=== PATIENT | male | born 1950 | race Caucasian/White ===

== ENCOUNTER 2019-03-21 14:49 | Emergency (ER) | payer MEDICAID, SELFPAY ==
[~2019-03-21] VITALS: Ht 172.7 cm; Wt 81.0 kg
[2019-03-21] MEDS ORDERED: CODE30TA PO (14:55)
[2019-03-21] MEDS ORDERED: CYCL10TA PO (14:55)
[2019-03-21 17:03] VITALS: BP 161/81
--- NOTE | 2019-03-22 09:09 | REP ---
LEFT ELBOW, FOUR VIEWS: Four views left elbow are performed. There is no acute fracture or dislocation. There is mild diffuse joint space narrowing with subchondral sclerosis and spurring. There is a small joint effusion. IMPRESSION: Mild degenerative changes. Small joint effusion. Electronically Signed by Pramod Rebolledo MD 03/22/2019 09:16 A
== END 2019-03-21 17:00 | disposition home or self-care (01) ==
LOC: M ED 14:49
DX: M19.022 Primary osteoarthritis, left elbow (principal); M25.422 Effusion, left elbow; W20.8XXA Other cause of strike by thrown, projected or falling object, initial encounter; Y92.098 Other place in other non-institutional residence as the place of occurrence of the external cause; Z79.899 Other long term (current) drug therapy; Z79.891 Long term (current) use of opiate analgesic

== ENCOUNTER → 2019-04-24 | Outpatient (CLI) | payer SELFPAY ==
[~2019-04-24] MED LIST: CODE30TA PO; CYCL10TA PO
--- NOTE | 2019-04-24 13:09 | REP ---
CT of the left wrist: Axial images are acquired helical scanning and a reformatted sagittal and coronal projections. 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 Mineralization and joint spaces are otherwise unremarkable. There is no fracture or dislocation. Electronically Signed by Pramod Lewis MD 04/24/2019 01:01 P
--- NOTE | 2019-04-26 09:53 | REP ---
MRI LEFT ELBOW: TECHNIQUE: Multiple sequences in the axial, coronal and sagittal planes. The visualized osseous structures demonstrate no bone marrow edema or occult fracture. There are mild subchondral cystic changes in the lateral humeral epicondyle with overlying mild to moderate chondromalacia. There is a small joint effusion. No definite joint body is seen. Collateral ligaments appear intact. There is ill-defined high signal in the common extensor tendon compatible with tendonitis. Biceps, triceps, brachialis and brachioradialis appear intact. Ulnar nerve is normally positioned in the cubital tunnel with no definite abnormality. No ganglion cyst is seen. IMPRESSION: Ill-defined high signal in T2-weighted images involving the common extensor tendon compatible with tendonitis. Collateral ligaments appear intact. Mild to moderate chondromalacia of the humeral condyles with mild subchondral cystic change in the lateral humeral epicondyle. Small joint effusion. Electronically Signed by Pramod Rebolledo MD 04/27/2019 11:29 P
== END ==
LOC: M RAD 10:48
PROVIDERS: ATTEND Physician Assistant Medical
DX: M25.532 Pain in left wrist (principal); M25.522 Pain in left elbow

== ENCOUNTER 2020-12-16 13:10 | Emergency (ER) | payer MEDICAID, SELFPAY ==
[~2020-12-16] VITALS: Ht 172.7 cm; Wt 63.7 kg
[~2020-12-16 13:10] MED LIST changes: +CYCL-707 PO; -CYCL10TA PO
[2020-12-16] MEDS ORDERED: ASPI81CH33 PO (13:39)
[2020-12-16] MEDS ORDERED: NS 1,000 ML IV ONE (15:00)
[2020-12-16 15:32] LABS: BASO % 0.5 % (0.0-1.0); EOS # 0.2 10^3/uL (0.0-0.5); HEMATOCRIT 35.6 % (42.0-52.0); HEMOGLOBIN 11.4 g/dl (13.5-17.5); LYMPH # 2.2 10^3/uL (1.5-5.0); LYMPH % 27.7 % (24.0-44.0); MEAN CORPUSCULAR VOLUME 93.7 fl (80.0-96.0); MONO # 0.6 10^3/uL (0.0-0.8); NEUTROPHILS # 4.9 10^3/uL (1.5-8.5); NEUTROPHILS % 61.4 % (36.0-66.0); PLATELET COUNT, AUTOMATED 278 10^3/uL (150-450); WHITE BLOOD COUNT 7.9 10^3/uL (4.0-10.0)
[2020-12-16 15:42] LABS: INR 0.94; PROTHROMBIN TIME 12.7 SECONDS (12.5-14.3)
[2020-12-16 15:43] LABS: PARTIAL THROMBOPLASTIN TIME 31.3 SECONDS (24.2-38.5)
[2020-12-16] MEDS ORDERED: ISOVUE-370 76% 100ML VIAL As Ordered ONE (15:58)
[2020-12-16 16:02] LABS: ALBUMIN 3.5 GM/DL (3.2-5.2); ALT/SGPT 15 U/L (12-78); AMYLASE 82 U/L (25-115); BILIRUBIN,DIRECT < 0.1 MG/DL (0.0-0.2); BILIRUBIN,TOTAL 0.3 MG/DL (0.2-1.0); CK-MB VALUE MASS < 1.0 NG/ML (<3.6); CPK CREATINE PHOSPHOKINASE 65 U/L (39-308); LIPASE 77 U/L (73-393); MB/CK RELATIVE INDEX 1.54 (< OR =4); TOTAL PROTEIN 7.7 GM/DL (6.4-8.2); TROPONIN I < 0.02 NG/ML (< 0.10)
--- NOTE | 2020-12-16 16:48 | REP ---
INDICATION: "tree fell on my head". COMPARISON: None. TECHNIQUE: Helical scanning is acquired. 5 mm axial images were reformatted. Coronal MPR images were generated. FINDINGS: Digital preliminary child care associate radiograph is unremarkable. Bone window settings demonstrate intact bony calvarium. Visualized paranasal sinuses are clear. No intraorbital abnormality is seen. No scalp hematoma is appreciated. On soft tissue window settings, there is minimal generalized volume loss. Small vessel atherosclerotic changes are seen in the periventricular white matter of the frontal lobes. There is no evidence of intracranial hemorrhage. Vascular calcification is seen in the distal internal carotid arteries. No traumatic abnormality is noted. IMPRESSION: Vascular calcification and minimal generalized volume loss. Small vessel changes. No acute intracranial abnormality.. <Electronically signed by Hakeem Dacosta > 12/16/20 [id number]
--- NOTE | 2020-12-16 16:50 | REP ---
INDICATION: "tree fell on my head". COMPARISON: None. TECHNIQUE: Helical scanning is acquired and overlapping 2 mm high resolution axial images were generated and reviewed at bone and soft tissue window settings. Coronal and sagittal multiplanar re-formations images are generated. FINDINGS: There is no evidence of cervical spine element fracture. No skull base fracture is seen. Cervical vertebral body heights are preserved. Alignment is normal. Facet joints are normally aligned bilaterally at each cervical level on multiplanar re-formations images. There is no evidence of intraspinal or paraspinal hematoma. No extra vertebral abnormality is seen. There are degenerative spondylosis changes at C3-4, C4-5, and C6-7 with disc space narrowing and sclerosis. There is central small disc protrusion at C5-6. There is also a broad-based central disc protrusion at C3-4. This is contributing to mild central canal stenosis at C3-4. No fracture or subluxation is seen. No perispinal or intraspinal hematoma is appreciated. There is osteoarthritic facet hypertrophy bilaterally in the mid cervical spine. IMPRESSION: Degenerative spondylosis changes. Central disc protrusions at C5-6 and C3-4. No traumatic abnormality noted.. <Electronically signed by Hakeem Dacosta > 12/16/20 [id number]
--- NOTE | 2020-12-16 16:57 | REP ---
INDICATION: epigastric pain s/p eating, 36lbs weight loss [id number]. COMPARISON: None. TECHNIQUE: Helical scanning was acquired and 4 mm axial images are re-formatted. Coronal and sagittal MPR images were generated and reviewed. The contrast enhancement dose is 100 mL of intravenous Isovue 370. FINDINGS: Preliminary digital pattern storage clerk radiograph is unremarkable. The lung bases are clear. There is no evidence of pleural effusion or upper abdominal ascites. The distal esophagus is air-filled and mildly dilated. There is nodular mural thickening at the gastroesophageal junction extending into the gastric cardia. There is adjacent periesophageal and celiac axis lymphadenopathy. The findings are suggestive of malignancy of the distal esophagus or gastroesophageal junction. Normal adrenal glands are seen. No focal liver lesion is seen. The spleen is unremarkable. The kidneys enhance symmetrically and are morphologically intact. No abnormality is noted in the pancreas or in the gallbladder. There is an infrarenal abdominal aortic aneurysm measuring 3.3 cm in greatest anteroposterior dimension. No perianeurysmal fibrosis or hemorrhage is seen. There are scattered right and left colonic diverticulosis changes most pronounced in the sigmoid colon. There is no evidence of diverticulitis. No pelvic mass or adenopathy is seen. There is moderate enlargement of the prostate gland. In addition, I cannot exclude a small enhancing nodular density in the urinary bladder on the left posteriorly 2.1 cm in diameter. No abdominal wall defect is seen. No bony destructive lesion is appreciated. IMPRESSION: 1. 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 Endoscopic and histologic correlation is recommended. 2. Infrarenal abdominal aortic aneurysm 3.3 cm in greatest diameter. 3. Moderate prosthetic enlargement. 4. Possible left posterior bladder mass. Consider cystoscopy. <Electronically signed by Hakeem Dacosta > 12/16/20 [id number]
[2020-12-16 17:27] VITALS: BP 141/68
[2020-12-21] MEDS ORDERED: IRON15CH PO (12:08)
== END 2020-12-16 17:40 | disposition home or self-care (01) ==
LOC: M ED 13:10
DX: I71.4 Abdominal aortic aneurysm, without rupture (principal); K22.9 Disease of esophagus, unspecified; Z79.82 Long term (current) use of aspirin; F17.210 Nicotine dependence, cigarettes, uncomplicated
CPT/HCPCS: 70450; 72125; 74177; 80047; 80076; 81001; 82150; 82550; 82553; 83690; 84484; 85025; 85610; 85730; 87086; 96360; 96361; 99284; Q9967

== ENCOUNTER → 2020-12-22 | Outpatient (CLI) | payer SELFPAY ==
[~2020-12-22] MED LIST changes: +ASPI81CH33 PO; +IRON15CH PO
== END ==
LOC: M LABSMTC 12:07
PROVIDERS: ATTEND Anesthesiology
DX: Z01.812 Encounter for preprocedural laboratory examination (principal); Z20.822 Contact with and (suspected) exposure to COVID-19

== ENCOUNTER → 2021-01-10 | Outpatient (CLI) | payer MEDICARE, SELFPAY ==
[~2021-01-10] MED LIST changes: +COVI30VI IM; +NAPR-849 PO; +NAPR220C14 PO; +collagen PO
--- NOTE | 2021-01-10 16:57 | RADONC.CN ---
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 He is seen today following EGD and biopsy to establish oncologic care and discuss treatment options. Diagnosis/Treatment History Oncologic History Late 2020: Developed globus sensation progressing to more insidious dysphagia to solid foods. He lost 40 lbs unintentionally. 12/16/20: Delayed presentation to ED first out of concern [place], but also due to complete dysphagia to solids with vomiting/epigastric pain and out of concern for continued weight loss. CT head negative. CT abdomen pelvis with distal esophageal mass, and malignant appearing LN along the lesser curvature of the stomach. 12/26/20: EGD with Dr. 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 The lung bases are clear. There is no evidence of pleural effusion or upper abdominal ascites. The distal esophagus is air-filled and mildly dilated. There is nodular mural thickening at the gastroesophageal junction extending into the gastric cardia. There is adjacent periesophageal and celiac axis lymphadenopathy. The findings are suggestive of malignancy of the distal esophagus or gastroesophageal junction. Normal adrenal glands are seen. No focal liver lesion is seen. The spleen is unremarkable. The kidneys enhance symmetrically and are morphologically intact. No abnormality is noted in the pancreas or in the gallbladder. There is an infrarenal abdominal aortic aneurysm measuring 3.3 cm in greatest anteroposterior dimension. No perianeurysmal fibrosis or hemorrhage is seen. There are scattered right and left colonic diverticulosis changes most pronounced in the sigmoid colon. There is no evidence of diverticulitis. No pelvic mass or adenopathy is seen. There is moderate enlargement of the prostate gland. In addition, I cannot exclude a small enhancing nodular density in the urinary bladder on the left posteriorly 2.1 cm in diameter. No abdominal wall defect is seen. No bony destructive lesion is appreciated. IMPRESSION: 1. 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 Endoscopic and histologic correlation is recommended. 2. Infrarenal abdominal aortic aneurysm 3.3 cm in greatest diameter. 3. Moderate prosthetic enlargement. 4. Possible left posterior bladder mass. Consider cystoscopy. Interval History Farooq reports he is able to take thin liquids PO. He has been using what sounds like a protein supplement and/or bone meal, in addition to other fluids. He is not eating anything solid with regularity. 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 He continues to smoke, not interested in quitting at this time. He has regular bowel movements, and he denies BRBPR or black stools. He has no dysuria or hematuria. No neck pain or back pain at this time. Has a history of disc disease. He has not routinely seen a physician at any time in his adult life. He has no insurance currently but is working on a Medicaid application. Past Medical History: AAA MRSA right knee Past Surgical History: Spine surgery Family History: Sister 1 cancer unknown type Sister 2 liver cancer Sister 3 breast cancer Social History: Current 1 PPD smoker 50+ pack year history Drinks 1 beer per day on average Allergies / Meds Allergies: Coded Allergies: No Known Allergies (Unverified , 12/21/20) Home Meds Reported Medications Naproxen (Naproxen) 250 Mg Tablet, 1 TAB PO BID for pain for 15 Days, #30 TAB 01/10/21 Aspirin (Aspirin) 81 Mg Tab.chew, 1 TAB PO DAILY for pain for 30 Days, #30 TAB 12/16/20 Discontinued Reported Medications Iron,Carbonyl (Iron Chews) 15 Mg Tab.chew, 65 MG PO DAILY 12/21/20 Review of Systems Constitutional: Reports: Weight Loss; Denies: Fever, Fatigue Eyes: Denies: Pain HEENT: Reports: Dysphagia; Denies: Head Aches, Sore Throat Skin: Denies: Rash Pulmonary: Denies: Dyspnea, Cough Cardiovascular: Denies: Chest Pain, Palpitations Gastrointestinal: Reports: Vomiting; Denies: Nausea, Abdominal Pain, Melena, Hematochezia Genitourinary: Denies: Dysuria, Frequency Hematologic: Denies: Bruising Musculoskeletal: Denies: Neck pain, Back pain, Joint pain Neurological: Denies: Weakness, Numbness Psych: Reports: Mood Normal Vital Signs Ht 68" Wt 146 lbs BMI 22 P 78 RR 18 BP 132/83 O2 97% Pain 0 Fatigue 0 General Exam: Positive: Alert, Cooperative, No Acute Distress Eye Exam: Positive: PERRLA, EOMI ENT EXAM: Positive: Atraumatic, Mucous membr. moist/pink, Tongue Midline Neck Exam: Positive: Supple; Negative: Lymphadenopathy (No cervical or supraclavicular adenopathy) Chest Exam: Positive: Clear to auscultation, Normal air movement Heart Exam: Positive: Rate Normal, Regular Rhythm Abdomen Exam: Positive: Normal bowel sounds, Soft; Negative: Tenderness, Mass (No abdominal tenderness, organomegaly or mass palpable. ) Extremity Exam: Negative: Edema Skin Exam: Positive: Nl turgor and temperature Neuro Exam: Positive: Normal Gait, Normal Speech, Cranial Nerves 3-12 NL Psych Exam: Positive: Mental status NL Diagnostic and Laboratory Diagnostic Review Radiologic images, relevant labs and pathology reports were personally reviewed and discussed with Mr. Faustin. Assessment and Plan Impression Mr. 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 He is seen today following EGD and biopsy to establish oncologic care and discuss treatment options. Stage [id number] adenocarcinoma of the GEJ Performance Status ECOG 1 Plan We had an extensive discussion with Mr. Faustin regarding the diagnosis at hand and available therapeutic options. He has experienced a significant amount of weight loss but despite this he remains very functional. He is able to take liquids PO but no solids at this time with any regularity. His situation is complicated by lack of insurance at the moment, he is working on obtaining this. Until he has insurance I have been informed that he will not be able to be scheduled for a PET-CT in our system as the outside vendor who provides PET services for the hospital will not schedule uninsured patients. 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 I have ordered a CT chest which will be of some assistance, though not make up for the PET. The PET can be performed once able. I discussed the general management of such cancers hinges on his surgical candidacy and various perioperative therapies. First I will refer him to the thoracic surgery group at [facility] for their expert opinion. In this situation where the extent of disease is somewhat unclear he may benefit from ex-lap at the time of J tube placement, which he certainly needs done. Once he has a surgery opinion, if he is felt to have a Siewart II lesion, then our standard would be for neoadjuvant chemoradiation 45 Gy in 25 fractions with weekly carbo/taxol. If he is felt to have a Siewart III lesion, then he may be more appropriately managed with perioperative chemotherapy such as MAGIC or FLOT. If he is not a surgical candidate, then definitive chemoradiation would be the treatment of choice. Farooq provided permission for me to contact the surgeons at [facility], and so I will contact them directly and send the referral along. We discussed the logistics of receiving radiation therapy in detail including the need for a 1-time planning session, if deemed appropriate initial therapy, this would occur after the eventual PET-CT is available. After discussing the risks, benefits and alternatives to radiation therapy, Mr. Faustin was amenable to pursuing a surgical opinion and neoadjuvant therapy as appropriate. All questions were answered to the patient's satisfaction. We instructed the patient that if there were any questions,concerns or changes in clinical status in the interim to contact us. I will see him back after his surgical consultation and coordinate his care appropriately from there. Recommendations Referral to thoracic surgery @ [facility] CT chest J tube Port placement PET-CT once insurance active Neoadjuvant therapy contingent upon surgical opinion Billing Statement Total time of [62] minutes was spent preparing for the visit [5], obtaining HPI [7], examining the patient [5], reviewing diagnostic tests [6], discussing management options [20], coordinating care [10], and writing this note [9]. ROSEANNE DUKE MD January 10, 2021 16:57
== END ==
LOC: M ONCR 12:45
PROVIDERS: ATTEND General Practice
DX: 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, unspecified (principal); I71.4 Abdominal aortic aneurysm, without rupture; F17.210 Nicotine dependence, cigarettes, uncomplicated

== ENCOUNTER → 2021-01-17 | Outpatient (CLI) | payer SELFPAY ==
[~2021-01-17] MED LIST changes: +ISOVUE-370 76% 100ML VIAL As Ordered ONE
--- NOTE | 2021-01-17 11:57 | REP ---
INDICATION: ESO CA COMPARISON: None. TECHNIQUE: Standard helical technique after the intravenous administration of 100 cc Isovue 370 FINDINGS: There is no mediastinal or hilar adenopathy. There are no pleural or pericardial effusions. The imaged osseous structures are within normal limits. The imaged upper abdomen is essentially unchanged from the abdominal CT of 12/16/2020. Evaluation of the lung osuna shows emphysematous changes with parenchymal bulla and pleural blebs. In the left lower lobe abutting the major fissure there is a 5 mm size nodule. Also seen in the left lower lobe there is an incidental calcified granuloma. There is biapical pleuroparenchymal scarring and cylindrical bronchiectasis. IMPRESSION: 1. There is a 5 mm size nodule in the left lower lobe as described above. According to the revised Fleischner society criteria this represents category 3 lesion for which a six-month follow-up chest CT is recommended. 2. Chronic lung field changes and other findings as described above. <Electronically signed by Mickey Coe > 01/17/21 [id number]
== END ==
LOC: M RAD 11:07
PROVIDERS: ATTEND General Practice
DX: C15.5 Malignant neoplasm of lower third of esophagus (principal); R91.1 Solitary pulmonary nodule
CPT/HCPCS: 71260; Q9967

== ENCOUNTER → 2021-02-13 | Outpatient (CLI) | payer SELFPAY ==
[~2021-02-13] MED LIST changes: -ISOVUE-370 76% 100ML VIAL As Ordered ONE; +ONDA8TAB10 PO; +PROC10TA4 PO
--- NOTE | 2021-02-14 02:13 | REP ---
INDICATION: UNSPECIFIED OPEN WOUND, RIGHT LOWER LEG, INITIAL E COMPARISON: None. TECHNIQUE: AP and lateral views of the right tibia/fibula FINDINGS: No acute fracture or dislocation. There is a somewhat ill-defined somewhat spongiform ovoid 4 cm area in the proximal tibial metaphysis which is nonspecific in appearance. No prior examinations are available for comparison. Surrounding soft tissues are unremarkable. IMPRESSION: Somewhat ill-defined 4 cm ovoid lesion in the proximal tibial metaphysis. Lesion is nonspecific and possibilities include both benign and malignant processes. Clinical correlation is recommended and consider CT or MRI for further investigation. <Electronically signed by Roel Samayoa > 02/14/21 0200
--- NOTE | 2021-02-14 03:09 | REP ---
INDICATION: UNSPECIFIED OPEN WOUND, RIGHT LOWER LEG, INITIAL E COMPARISON: None. TECHNIQUE: AP and cross-table lateral views. FINDINGS: There is a 4 cm ovoid somewhat spongiform appearing lesion in the proximal tibial metaphysis. No prior examinations are available for comparison. Moderate degenerative changes are also noted including minimal joint space narrowing and chondrocalcinosis. No acute fracture or dislocation. No definite effusion. IMPRESSION: 1. 4 cm ovoid appearing lesion in the proximal tibial metaphysis. No prior examinations are available for comparison. Malignancy/metastatic disease cannot definitively be excluded and further investigation including CT or MRI may be warranted. 2. Moderate degenerative changes. <Electronically signed by Roel Samayoa > 02/14/21 [id number]
== END ==
LOC: M RAD 13:10
PROVIDERS: ATTEND Surgery
DX: S81.801A Unspecified open wound, right lower leg, initial encounter (principal); W18.30XA Fall on same level, unspecified, initial encounter; Y92.009 Unspecified place in unspecified non-institutional (private) residence as the place of occurrence of the external cause

== ENCOUNTER → 2021-02-16 | Outpatient (REF) | payer MEDICARE, SELFPAY ==
[~2021-02-16] MED LIST changes: +ASPI81TA27 PO; +COLLPOW8 PO; +IRON65TA2 PO; +LEVO500T3; +MAGICMW PO; +NAPR-885 PO; +OXYC1SOL3 PO; +PANT40TA29 PO
== END ==
LOC: M LAB REF 15:53
PROVIDERS: ATTEND Surgery
DX: L97.912 Non-pressure chronic ulcer of unspecified part of right lower leg with fat layer exposed (principal); M86.18 Other acute osteomyelitis, other site; M86.68 Other chronic osteomyelitis, other site

== ENCOUNTER → 2021-02-23 | Outpatient (REF) | payer MEDICARE, SELFPAY | LOC: M LAB REF 11:22 | PROVIDERS: ATTEND Physician Assistant | DX: L97.912 Non-pressure chronic ulcer of unspecified part of right lower leg with fat layer exposed (principal) ==

== ENCOUNTER → 2021-02-28 | Outpatient (RCR) | payer SELFPAY ==
[~2021-02-28] MED LIST changes: -ASPI81TA27 PO; -COLLPOW8 PO; -IRON65TA2 PO; -LEVO500T3; -NAPR-885 PO; -PANT40TA29 PO
== END ==
LOC: M ONCR 02-01 13:16
PROVIDERS: ATTEND General Practice
DX: C15.5 Malignant neoplasm of lower third of esophagus (principal)

== ENCOUNTER 2021-03-28 08:01 | Outpatient (RCR) | payer SELFPAY ==
[~2021-03-28 08:01] MED LIST changes: +COLLPOW8 PO
== END 2021-03-31 ==
LOC: M ONCR 08:01
PROVIDERS: ATTEND General Practice
DX: C15.5 Malignant neoplasm of lower third of esophagus (principal)

== ENCOUNTER 2021-04-18 11:43 | Observation (INO) | payer SELFPAY ==
[~2021-04-18] VITALS: Ht 170.2 cm; Wt 57.0 kg
[2021-04-18] MEDS ORDERED: LEVO500T3 (11:53)
[2021-04-18] MEDS ORDERED: MORPHINE 4 MG/ML 1ML VIAL/SYRINGE (J2270) IV ONE (13:15)
--- NOTE | 2021-04-18 13:34 | REP ---
INDICATION: ? dislocation COMPARISON: None TECHNIQUE: Four views FINDINGS: There is tricompartmental marginal osteophytosis with medial compartmental and patellofemoral joint space narrowing. The lack of a sunrise view precludes complete evaluation of the patella. No fractures are identified. There is suprapatellar soft tissue swelling of uncertain etiology. IMPRESSION: Findings and limitations as described above. <Electronically signed by Mickey Coe > 04/18/21 [id number]
--- NOTE | 2021-04-18 13:39 | REP ---
INDICATION: ? dislocation COMPARISON: None. TECHNIQUE: AP and lateral left femur. FINDINGS: There is no evidence of acute fracture, dislocation, or intrinsic bone disease.There appears to be a moderate suprapatellar effusion. There is moderate medial knee joint space narrowing. There is mild narrowing at the hip joint. IMPRESSION: No fracture or dislocation. Degenerative changes. Suprapatellar effusion. <Electronically signed by Pramod Reboleldo > 04/18/21 [id number]
--- NOTE | 2021-04-18 13:41 | REP ---
INDICATION: ? dislocation COMPARISON: None. TECHNIQUE: AP and lateral left lower leg. FINDINGS: There is no evidence of acute fracture, dislocation, or intrinsic bone disease.There is moderate medial joint space narrowing and subchondral sclerosis of the medial knee joint, with mild spurring. There is a suprapatellar effusion. IMPRESSION: No fracture or dislocation. Degenerative changes of the knee, with a suprapatellar effusion. <Electronically signed by Pramod Rebolledo > 04/18/21 1220
[2021-04-18 14:14] LABS: BASO % 0.4 % (0.0-1.0); EOS % 0.5 % (0.0-3.0); HEMOGLOBIN 9.9 g/dl (13.5-17.5); LYMPH # 0.5 10^3/uL (1.5-5.0); LYMPH % 5.8 % (24.0-44.0); MEAN CORPUSCULAR HEMOGLOBIN 30.3 pg (27.0-33.0); MEAN CORPUSCULAR VOLUME 91.7 fl (80.0-96.0); MONO # 1.3 10^3/uL (0.0-0.8); MONO % 15.1 % (2.0-8.0); NEUTROPHILS # 6.6 10^3/uL (1.5-8.5); NEUTROPHILS % 77.6 % (36.0-66.0); PLATELET COUNT, AUTOMATED 170 10^3/uL (150-450); RED BLOOD COUNT 3.27 10^6/uL (4.30-6.10); WHITE BLOOD COUNT 8.5 10^3/uL (4.0-10.0)
[2021-04-18 14:35] LABS: ALBUMIN 2.8 GM/DL (3.2-5.2); ALT/SGPT 13 U/L (12-78); BILIRUBIN,DIRECT < 0.1 MG/DL (0.0-0.2); BILIRUBIN,TOTAL 0.3 MG/DL (0.2-1.0); BLOOD UREA NITROGEN 17 MG/DL (7-18); CALCIUM LEVEL 8.6 MG/DL (8.8-10.2); CARBON DIOXIDE LEVEL 29 MEQ/L (21-32); CHLORIDE LEVEL 104 MEQ/L (98-107); CREATININE FOR GFR 0.64 MG/DL (0.70-1.30); GLOMERULAR FILTRATION RATE > 60.0 (>49); GLUCOSE, FASTING 90 MG/DL (70-100); POTASSIUM SERUM 3.8 MEQ/L (3.5-5.1); SODIUM LEVEL 136 MEQ/L (136-145); TOTAL PROTEIN 6.6 GM/DL (6.4-8.2)
[2021-04-18 14:55] LABS: ERYTHROCYTE SEDIMENTATION RATE > 140 mm/hr (0-20)
--- NOTE | 2021-04-18 15:27 | REP ---
INDICATION: swelling COMPARISON: None. TECHNIQUE: Real time compression and duplex Doppler interrogation of the left lower extremity deep venous system is performed, including the right common femoral vein.Compression of the left peroneal and posterior tibial veins is performed. FINDINGS: The left common femoral, superficial femoral and popliteal veins are fully compressible with transducer pressure and demonstrate normal spontaneous and phasic flow, without evidence of deep venous thrombosis.The right common femoral vein demonstrates no thrombus.The visualized left peroneal and posterior tibial veins demonstrate no thrombus. A complex left popliteal cyst measures 4.7 x 1.8 x 2.3 cm. IMPRESSION: No evidence of deep venous thrombosis of the left lower extremity femoral popliteal venous system.No thrombus in the visualized left peroneal and posterior tibial veins. A complex left popliteal cyst measures 4.7 x 1.8 x 2.3 cm. <Electronically signed by Pramod Rebolledo > 04/18/21 1521
[2021-04-18] MEDS ORDERED: LIDOCAINE 2% MDV 20ML VIAL SC ONE (15:40)
[2021-04-18 16:39] LABS: CRYSTALS, BODY FLUID CA PYROPHOSPHATE (NONE SEEN); SOURCE, BODY FLUID LFT KNEE; SOURCE, BODY FLUID CRYSTALS LFT KNEE; SYNOVIAL FLUID COLOR YELLOW (COLORLESS)
[2021-04-18 17:10] LABS: SOURCE, BODY FLUID GLUCOSE LFT KNEE; SOURCE, BODY FLUID URIC ACID LFT KNEE; URIC ACID, BODY FLUID 4.7 MG/DL (NOT ESTABLISHED)
[2021-04-18] MEDS ORDERED: NAPROXEN 250 MG TAB PO ONE (19:25)
[2021-04-18] MEDS ORDERED: ASPI81TA27 PO (20:17)
[2021-04-18] MEDS ORDERED: IRON65TA2 PO (20:17)
[2021-04-18] MEDS ORDERED: MOM 30ML SUSPENSION UDC PO PRN (20:20)
[2021-04-18] MEDS ORDERED: MAALOX 30 ML SUSP *UDC PO PRN (20:20)
[2021-04-18] MEDS ORDERED: HOME MED LIST COMPLETE! XX SCH (20:20)
[2021-04-18] MEDS ORDERED: ACETAMINOPHEN TAB 650MG DOSE (2X325MG) PO PRN (20:20)
--- NOTE | 2021-04-18 20:23 | HPEPDOC ---
[facility] Medical History & Physical Date of Admission Apr 18, 2021 Date of Service: Apr 18, 2021 Primary Care Physician: SP PALUMBO PA-C Other Provider Attending Physician: CHRISSIE CHRIS MD History and Physical TIME OF SERVICE: 923pm CHIEF COMPLAINT: knee pain HISTORY OF PRESENT ILLNESS: is a 71 yr old F presented w c/o of left knee pain and swelling that begun on Friday evening after he completed a course of abx for a wound at the right lower leg. Over the next 3 days the pain and knee swelling got worse to the point that he had difficulties walking so he came to the ER for evaluation. Ivette Dodge discussed the patients case with (Ortho) who requested that Venkata perform aspiration of the synovial fluid for analysis. She reviewed the findings with who will see the patient in the morning. The patient was also given NSAIDs for the pain. 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 FAMILY HISTORY: One sister had spider cancer with metastasis, another sister had liver cancer, while a third sister hand breast cancer ALLERGIES: Please see below. HOME MEDICATIONS: Please see below. PHYSICAL EXAMINATION: Vital Signs Date Time Temp Pulse Resp B/P (MAP) Pulse Ox O2 Delivery O2 Flow Rate FiO2 04/18/21 11:44 97.6 77 18 112/69 (83) 99 Room Air GENERAL APPEARANCE: slim build /well developed /NAD HEENT: EOMI / MMM&P CARDIOVASCULAR: RRR/NMRG LUNGS: CTAB on RA ABDOMEN: contour flat MUSCULOSKELETAL: has a deep wound at the anterior part of the right lower leg / his left knee is covered in clean and dry dressings INTEGUMENT: he is not flushed or diaphoretic NEUROLOGICAL: CN 2-12 grossly intact /speech not dysarthric PSYCHIATRIC: A&O x 3 /able to understand and follow all comands LABORATORY DATA: Anion Gap 3L, Glomerular Filtration Rate > 60.0, Calcium Level 8.6L, Total Bilirubin 0.3, Direct Bilirubin < 0.1, Aspartate Amino Transf (AST/SGOT) 9, Alanine Aminotransferase (ALT/SGPT) 13, Alkaline Phosphatase 58, C-Reactive Protein, Quantitative 15.80H, Total Protein 6.6, Albumin 2.8L, Albumin/Globulin Ratio 0.7 04/18/21 13:55: Immature Granulocyte % (Auto) 0.6, Neutrophils (%) (Auto) 77.6H, Lymphocytes (%) (Auto) 5.8L, Monocytes (%) (Auto) 15.1H, Eosinophils (%) (Auto) 0.5, Basophils (%) (Auto) 0.4, Neutrophils # (Auto) 6.6, Lymphocytes # (Auto) 0.5L, Monocytes # (Auto) 1.3H, Eosinophils # (Auto) 0.0, Basophils # (Auto) 0.0, Nucleated Red Blood Cells % (auto) 0.0, Erythrocyte Sedimentation Rate > 140H 04/18/21 16:20: Body Fluid WBC (Auto) 32418J, Body Fluid RBC (Auto) 5, Body Fluid Mononuclear Cells % Auto 5.8H, Fluid Polymorphonuclear Cell % Auto 94.2H, Body Fluid Crystals CA PYROPHOSPHATEH, Body Fluid Crystal Source LFT KNEE, Body Fluid Glucose Source LFT KNEE, Body Fluid Glucose 3, Body Fluid Uric Acid 4.7, Body Fluid Uric Acid Source LFT KNEE, Synovial Fluid Source LFT KNEE, Synovial Fluid Color YELLOW, Synovial Fluid Appearance HAZY IMAGING: Xray Femur IMPRESSION: No fracture or dislocation. Degenerative changes. Suprapatellar effusion. Xray Knee IMPRESSION: Findings and limitations as described above. Xray Tib/Fib IMPRESSION: No fracture or dislocation. Degenerative changes of the knee, with a suprapatellar effusion. Vascular US IMPRESSION: No evidence of deep venous thrombosis of the left lower extremity femoral popliteal venous system.No thrombus in the visualized left peroneal and posterior tibial veins. A complex left popliteal cyst measures 4.7 x 1.8 x 2.3 cm. MICROBIOLOGY: Respiratory panel is pending / joint fluid cultures are pending ASSESSMENT: is a 71 yr old M w a hx of invasive adenocarcinoma of the GE junction, chronic RLE wound and chronic anemia who is admitted for knee pain likely due to pseudogout. PLAN: 1 Acute Left knee CPPD/ pseudogout +/- septic knee The cause of the pseudogout flair is likely idiopathic but other causes include trauma, familial chondrocalcinosis, or hypomagnesemia. Because he has anemia and low normal calcium unlikely that this is cause by hemochromatosis or hyperparathyroidism. Plan: admit to medical floor / fall precautions / f/u synovial fluid cx to r/o co-existing septic joint / f/u serum Mg / c/w NSAIDs /f/u w in the morning 2 Complex Left Popliteal cyst Plan: f/u w ortho in the morning 3 Chronic Anemia Likely due to GI malignancy Per d/w Narcisa Marsh the stool guaiac was neg Plan: f/u repeat CBC and w Hem/Onc 4 RLE wound Plan; will ask the day time team to consider consulting 5 GE junction cancer Plan: f/u w Hem/Onc as scheduled DVT px w lovenox Dispo: home after at least 2 midnights stay Home Medications Scheduled Aspirin (Aspirin EC) 81 Mg Tablet.dr 81 MG PO DAILY Ferrous Sulfate (Iron) 325 Mg Tablet, 325 MG PO 3XW NO SPECIFIC DAYS Allergies Coded Allergies: No Known Allergies (Unverified , 01/18/21) A-FIB/CHADSVASC A-FIB History Current/History of A-Fib/PAF?: No Current PO Anticoag Therapy: No CHRISSIE CHRIS MD Apr 18, 2021 20:22
[2021-04-18 21:43] LABS: RSV AMPLIFICATION NEGATIVE (NEGATIVE)
[2021-04-19 00:56] VITALS: BP 105/66
[2021-04-19] MEDS ORDERED: SLF 3 ML SYR IV PRN (02:15)
[2021-04-19 06:00] VITALS: BP 126/61
[2021-04-19 06:11] LABS: HEMATOCRIT 29.6 % (42.0-52.0); HEMOGLOBIN 9.9 g/dl (13.5-17.5); MEAN CORPUSCULAR HEMOGLOBIN 29.9 pg (27.0-33.0); MEAN CORPUSCULAR HGB CONC 33.4 g/dl (32.0-36.5); MEAN CORPUSCULAR VOLUME 89.4 fl (80.0-96.0); PLATELET COUNT, AUTOMATED 148 10^3/uL (150-450); RED BLOOD COUNT 3.31 10^6/uL (4.30-6.10)
[2021-04-19 06:32] LABS: BLOOD UREA NITROGEN 17 MG/DL (7-18); CALCIUM LEVEL 8.7 MG/DL (8.8-10.2); CARBON DIOXIDE LEVEL 30 MEQ/L (21-32); CHLORIDE LEVEL 105 MEQ/L (98-107); CREATININE FOR GFR 0.58 MG/DL (0.70-1.30); GLOMERULAR FILTRATION RATE > 60.0 (>49); GLUCOSE, FASTING 84 MG/DL (70-100); MAGNESIUM LEVEL 2.1 MG/DL (1.8-2.4); SODIUM LEVEL 137 MEQ/L (136-145)
[2021-04-19] MEDS ORDERED: ENOXAPARIN 40MG/0.4ML SYRINGE (J1650 PER 10MG) SC SCH (09:00)
[2021-04-19] MEDS ORDERED: ASPIRIN 81MG ENTERIC TABLET PO SCH (09:00)
[2021-04-19 11:00] LABS: BODY FLUID RHEUMATOID SCREEN NEGATIVE (NEGATIVE)
--- NOTE | 2021-04-19 11:43 | IPNPDOC ---
Text Note Date of Service The patient was seen on 04/19/21. NOTE SUBJECTIVE: -Feels back at baseline, now able to walk around, pain has resolved, swelling still present OBJECTIVE VITALS: see below GENERAL APPEARANCE: NAD HEENT: NCAT, EOMI, MMM CARDIOVASCULAR: RRR, no m/r/g LUNGS: CTAB ABDOMEN: Normoactive sounds, soft, NTND EXT: R lower anterior leg wound noted, without drainage, L knee with dressing that is c/d/i. No erythema or hotness to touch. NEUROLOGICAL: CN 3-12 grossly intact,speech not dysarthric PSYCHIATRIC: A&O x 3 LABORATORY DATA: Reviewed WBC 6 Hgb 9.9 Platelets 148 ESR >140 CRP 15.8 Na 137 K 4 Cr 0.58 Joint aspirate fluid analysis showed 27128 WBCs that were 94% PMNs and Ca pyrophosphate crystals IMAGING: Xray Femur IMPRESSION: No fracture or dislocation. Degenerative changes. Suprapatellar effusion. Xray Knee IMPRESSION: Findings and limitations as described above. Xray Tib/Fib IMPRESSION: No fracture or dislocation. Degenerative changes of the knee, with a suprapatellar effusion. Vascular US IMPRESSION: No evidence of deep venous thrombosis of the left lower extremity femoral popliteal venous system.No thrombus in the visualized left peroneal and posterior tibial veins. A complex left popliteal cyst measures 4.7 x 1.8 x 2.3 cm. MICROBIOLOGY: Respiratory panel is pending / joint fluid cultures are pending ASSESSMENT: is a 71 yr old M w a hx of invasive adenocarcinoma of the GE junction, chronic RLE wound and chronic anemia who is admitted for knee pain likely due to pseudogout. PLAN: 1 Acute Left knee CPPD/ pseudogout +/- septic knee -f/u synovial fluid cx unlikely to have co-existing septic joint -c/w NSAIDs, naproxen 500mg BID for 1 week. Will also give PPI -f/u w ortho 2 Complex Left Popliteal cyst -f/u w ortho 3 Chronic Anemia -Daily CBC RLE wound -Consulting 5 GE junction cancer -f/u w Hem/Onc as scheduled DVT px w lovenox Dispo: likely home after discussion with ortho VS,Fishbone, I+O VS, Fishbone, I+O Laboratory Tests 04/18/21 13:54 04/18/21 13:55 04/19/21 05:34 Vital Signs Date Time Temp Pulse Resp B/P (MAP) Pulse Ox O2 Delivery O2 Flow Rate FiO2 04/19/21 06:00 98.4 80 16 126/61 (82) 99 Room Air I&O- Last 24 Hours up to 6 AM 04/19/21 06:00 Intake Total 0 ml Output Total 675 ml Balance -675 ml RILEY MANCIA MD Apr 19, 2021 08:11
[2021-04-19] MEDS ORDERED: NAPR-885 PO (11:45)
[2021-04-19] MEDS ORDERED: PANT40TA29 PO (11:45)
--- NOTE | 2021-04-19 13:13 | DS.PDOC ---
Discharge Summary General Date of Admission Apr 18, 2021 at 20:18 Date of Discharge 04/19/2021 Attending Physician: RILEY MANCIA MD Discharge Summary PROCEDURES PERFORMED DURING STAY: L knee aspiration ADMITTING DIAGNOSES: Pseudogout of L knee DISCHARGE DIAGNOSES: Pseudogout of L knee Chronic R upper clay deep wound for which he follows with Dr. Valencia T3N2 poorly differentiated invasive adenocarcinoma of the GE junction (HER-2 was equivocal, his last session of chemo with Carboplatin/Paclitaxel & last day of radiation tx was on March 28, he has a PET scan scheduled in the near future) Chronic anemia Chronic Thoracic aneurysm COMPLICATIONS/CHIEF COMPLAINT: Pseudogout Of Knee. HISTORY OF PRESENT ILLNESS: 71 yr old man with a history of a chronic R upper clay, LE deep wound for which he follows with Dr. Valencia on Hydrofera blue packing with dressings, T3N2 poorly differentiated invasive adenocarcinoma of the GE junction (HER-2 was equivocal, his last session of chemo with Carboplatin/Paclitaxel & last day of radiation tx was on March 28, he has a PET scan scheduled in the near future), chronic anemia, PEG tube (not being used), Thoracic aneurysm, hx of knee subluxation who presented w c/o of left knee pain and swelling that begun on Friday evening after he completed a course of abx for his wound at the right lower leg. Over the next 3 days the pain and knee swelling got worse to the point that he had difficulties walking so he came to the ER for evaluation. Ivette Dodge discussed the patients case with ([facility]) who r equested that she perform aspiration of the synovial fluid for analysis and was admitted to medicine on NSAIDs for the pain. HOSPITAL COURSE: Fluid analysis was c/w pseudogout with calcium pyrophosphate with [place] [address]121 WBCs that were 94% PMNs. He was given naproxen 500mg and he felt much better this morning and is walking around his room and asking when he will be discharged. I will place him on 500mg BID naproxen for 7d, with a daily PPI and recommend PCP follow up within 7d. In the meantime, his R anterior clay wound looks great, has hydrafero blue packing tube in place with mild serosanguinous drainage around the dressing and he has a Dr. Valencia appt at 4PM today that he is planning to go to. DISCHARGE MEDICATIONS: Please see below. ALLERGIES: Please see below. PHYSICAL EXAMINATION ON DISCHARGE: VITAL SIGNS: Please see below. GENERAL APPEARANCE: NAD HEENT: NCAT, EOMI, MMM CARDIOVASCULAR: RRR, no m/r/g LUNGS: CTAB ABDOMEN: Normoactive sounds, soft, NTND EXT: R lower anterior leg wound noted, without drainage, L knee with dressing that is c/d/i. No erythema or hotness to touch. NEUROLOGICAL: CN 3-12 grossly intact,speech not dysarthric PSYCHIATRIC: A&O x 3 LABORATORY DATA: Please see below Joint aspirate fluid analysis showed 42219 WBCs that were 94% PMNs and Ca pyrophosphate crystals IMAGING: Xray Femur IMPRESSION: No fracture or dislocation. Degenerative changes. Suprapatellar effusion. Xray Knee IMPRESSION: Findings and limitations as described above. Xray Tib/Fib IMPRESSION: No fracture or dislocation. Degenerative changes of the knee, with a suprapatellar effusion. Vascular US IMPRESSION: No evidence of deep venous thrombosis of the left lower extremity femoral popliteal venous system.No thrombus in the visualized left peroneal and posterior tibial veins. A complex left popliteal cyst measures 4.7 x 1.8 x 2.3 cm. PROGNOSIS: Good ACTIVITY: As tolerated DIET: Regular DISCHARGE PLAN: Home with close PCP follow up, wound care as scheduled, 7d of BID naproxen, PPI daily. DISPOSITION: Home DISCHARGE INSTRUCTIONS: Home with close PCP follow up, wound care as scheduled, 7d of BID naproxen, PPI daily. ITEMS TO FOLLOWUP ON ON OUTPATIENT: Pseudogout workup DISCHARGE CONDITION: Stable TIME SPENT ON DISCHARGE: 34 minutes. Vital Signs/I&Os Vital Signs Date Time Temp Pulse Resp B/P (MAP) Pulse Ox O2 Delivery O2 Flow Rate FiO2 04/19/21 06:00 98.4 80 16 126/61 (82) 99 Room Air I&O- Last 24 Hours up to 6 AM 04/19/21 05:59 Intake Total 0 ml Output Total 400 ml Balance -400 ml Laboratory Data Labs 24H Laboratory Tests 2 04/18/21 13:54: Anion Gap 3L, Glomerular Filtration Rate > 60.0, Calcium Level 8.6L, Total Bilirubin 0.3, Direct Bilirubin < 0.1, Aspartate Amino Transf (AST/SGOT) 9, Alanine Aminotransferase (ALT/SGPT) 13, Alkaline Phosphatase 58, C-Reactive Protein, Quantitative 15.80H, Total Protein 6.6, Albumin 2.8L, Albumin/Globulin Ratio 0.7 04/18/21 13:55: Immature Granulocyte % (Auto) 0.6, Neutrophils (%) (Auto) 77.6H, Lymphocytes (%) (Auto) 5.8L, Monocytes (%) (Auto) 15.1H, Eosinophils (%) (Auto) 0.5, Basophils (%) (Auto) 0.4, Neutrophils # (Auto) 6.6, Lymphocytes # (Auto) 0.5L, Monocytes # (Auto) 1.3H, Eosinophils # (Auto) 0.0, Basophils # (Auto) 0.0, Nucleated Red Blood Cells % (auto) 0.0, Erythrocyte Sedimentation Rate > 140H 04/18/21 16:20: Body Fluid WBC (Auto) 23267I, Body Fluid RBC (Auto) 5, Body Fluid Mononuclear Cells % Auto 5.8H, Fluid Polymorphonuclear Cell % Auto 94.2H, Body Fluid Crystals CA PYROPHOSPHATEH, Body Fluid Crystal Source LFT KNEE, Body Fluid Glucose Source LFT KNEE, Body Fluid Glucose 3, Body Fluid Uric Acid 4.7, Body Fluid Uric Acid Source LFT KNEE, Body Fluid Rheumatoid Factor Screen NEGATIVE, Body Fluid Rheumatoid Factor Source LFT KNEE, Synovial Fluid Source LFT KNEE, Synovial Fluid Color YELLOW, Synovial Fluid Appearance HAZY 04/18/21 20:44: Coronavirus (COVID-19)(PCR) NEGATIVE, Influenza Type A (RT-PCR) NEGATIVE, Influenza Type B (RT-PCR) NEGATIVE, Respiratory Syncytial Virus (PCR) NEGATIVE 04/19/21 05:34: Nucleated Red Blood Cells % (auto) 0.0, Anion Gap 2L, Glomerular Filtration Rate > 60.0, Calcium Level 8.7L, Magnesium Level 2.1 CBC/BMP Laboratory Tests 04/18/21 13:54 04/18/21 13:55 04/19/21 05:34 Microbiology Microbiology 04/18/21 Gram Stain - Final, Resulted 04/18/21 Body Fluid Culture, Resulted Pending 04/18/21 Acid Fast Stain, Received Pending 04/18/21 Mycobacterial Culture, Received Pending Discharge Medications Scheduled Aspirin (Aspirin EC) 81 Mg Tablet.dr, 81 MG PO DAILY, (Reported) Ferrous Sulfate (Iron) 325 Mg Tablet, 325 MG PO 3XW, (Reported) NO SPECIFIC DAYS Naproxen (Naproxen) 500 Mg Tablet, 1 TAB PO BID for pain Pantoprazole Sodium (Pantoprazole Sodium) 40 Mg Tablet.dr, 1 TAB PO DAILY Allergies Coded Allergies: No Known Allergies (Unverified , 01/18/21) RILEY MANCIA MD Apr 19, 2021 11:58
--- NOTE | 2021-04-19 14:33 | CR.PDOC ---
General Date of Consultation: Apr 19, 2021 Attending Physician: JAMESON LOBATO MD Consultation REASON FOR CONSULTATION/CHIEF COMPLAINT: 71 year male complaining of left knee pain and swelling. No Hx of trauma. currently on chemo. Hx on chronic right pretibial wound treated by wound since 2016. Hx of trauma to that right leg >40 years ago and surgery with bone grafting. [HISTORY OF PRESENT ILLNESS: is a 71 yr old F presented w c/o of left knee pain and swelling that begun on Friday evening after he completed a course of abx for a wound at the right lower leg. Over the next 3 days the pain and knee swelling got worse to the point that he had difficulties walking so he came to the ER for evaluation. Ivette Dodge discussed the patients case with (Ortho) who requested that Venkata perform aspiration of the synovial fluid for analysis. She reviewed the findings with who will see the patient in the morning. The patient was also given NSAIDs for the pain. Aspiration so far negative for acute infection. Awaiting C&S. Signs of pseudogout on aspiration. ALLERGIES: Please see below. HOME MEDICATIONS: Please see below. ]. ALLERGIES: Please see below. HOME MEDICATIONS: Please see below. PAST MEDICAL HISTORY: T3N2 poorly differentiated invasive adenocarcinoma of the GE junction (HER-2 was equivocal, his last session of chemo with Carboplatin/Paclitaxel & last day of radiation tx was on March 28, he has a PET scan scheduled in the near future), chronic anemia, PEG tube (not being used), Chemo port placement, Thoracic aneurysm, hx of knee subluxation, he has had back surgery FAMILY HISTORY: One sister had spider cancer with metastasis, another sister had liver cancer, while a third sister hand breast cancer PAST SURGICAL HISTORY: pt states initial trauma to right le >40 years ago. Damaged the bone and was treated with surgery and bone grafting SOCIAL HISTORY:He has a 56 pack year habit of tobacco use, he drinks alcohol occasionally. REVIEW OF SYSTEMS: CONSTITUTIONAL: [none]. HEENT: . CARDIOVASCULAR: . RESPIRATORY: . GENITOURINARY: . MUSCULOSKELETAL: [right chroninc wound and left knee pain]. GASTROINTESTINAL: . SKIN: . NEUROLOGICAL: . PSYCHIATRIC: . ENDOCRINE: . HEMATOLOGIC/LYMPHATIC: . ALLERGIC/IMMUNOLOGIC: . PHYSICAL EXAMINATION: VITAL SIGNS: Please see below. GENERAL APPEARANCE: Alert and oriented.Seen just before final discharge Left knee ROM 10-90 no effusion.No erythema no warmth. NVI right knee full ROM Pretibial draining wound . Packed. LABORATORY DATA: Please see below. ASSESSMENT/PLAN: 1. left knee pseudo gout. WBAT. NSAID for inflammation. Out Pation PT. 2. Right chronic pretibial wound. Possible osteomyelitis. Continue out patient management with wound care. 3. Follow up [facility] orthopedics. Vital Signs/I&O Vital Signs Date Time Temp Pulse Resp B/P (MAP) Pulse Ox O2 Delivery O2 Flow Rate FiO2 04/19/21 06:00 98.4 80 16 126/61 (82) 99 Room Air I&O- Last 24 Hours up to 6 AM 04/19/21 06:00 Intake Total 0 ml Output Total 675 ml Balance -675 ml Laboratory Data Labs 24H Laboratory Tests 2 04/18/21 16:20: Body Fluid WBC (Auto) 81652G, Body Fluid RBC (Auto) 5, Body Fluid Mononuclear Cells % Auto 5.8H, Fluid Polymorphonuclear Cell % Auto 94.2H, Body Fluid Blanca tals CA PYROPHOSPHATEH, Body Fluid Crystal Source LFT KNEE, Body Fluid Glucose Source LFT KNEE, Body Fluid Glucose 3, Body Fluid Uric Acid 4.7, Body Fluid Uric Acid Source LFT KNEE, Body Fluid Rheumatoid Factor Screen NEGATIVE, Body Fluid Rheumatoid Factor Source LFT KNEE, Synovial Fluid Source LFT KNEE, Synovial Fluid Color YELLOW, Synovial Fluid Appearance HAZY 04/18/21 20:44: Coronavirus (COVID-19)(PCR) NEGATIVE, Influenza Type A (RT-PCR) NEGATIVE, Influenza Type B (RT-PCR) NEGATIVE, Respiratory Syncytial Virus (PCR) NEGATIVE 04/19/21 05:34: Nucleated Red Blood Cells % (auto) 0.0, Anion Gap 2L, Glomerular Filtration Rate > 60.0, Calcium Level 8.7L, Magnesium Level 2.1 CBC/BMP Laboratory Tests 04/19/21 05:34 Microbiology Microbiology 04/18/21 Gram Stain - Final, Resulted 04/18/21 Body Fluid Culture, Resulted Pending 04/18/21 Acid Fast Stain, Received Pending 04/18/21 Mycobacterial Culture, Received Pending Allergies Coded Allergies: No Known Allergies (Unverified , 01/18/21) Home Medications Scheduled Aspirin (Aspirin EC) 81 Mg Tablet.dr, 81 MG PO DAILY, (Reported) Ferrous Sulfate (Iron) 325 Mg Tablet, 325 MG PO 3XW, (Reported) NO SPECIFIC DAYS Naproxen (Naproxen) 500 Mg Tablet, 1 TAB PO BID for pain for 7 Days, #14 Pantoprazole Sodium (Pantoprazole Sodium) 40 Mg Tablet.dr, 1 TAB PO DAILY for 30 Days, #30 JAMESON LOBATO MD Apr 19, 2021 14:06
== END 2021-04-19 14:04 | disposition home or self-care (01) ==
LOC: M ED 11:43 → M ED INP 20:18 → ENRESERV 23:35 → M MSPAV 04-19 00:56
PROVIDERS: ADMIT Internal Medicine; ATTEND Internal Medicine
DX: M11.262 Other chondrocalcinosis, left knee (principal); M25.462 Effusion, left knee; S81.801A Unspecified open wound, right lower leg, initial encounter; X58.XXXA Exposure to other specified factors, initial encounter; Y92.89 Other specified places as the place of occurrence of the external cause; C16.0 Malignant neoplasm of cardia; D64.9 Anemia, unspecified; M71.22 Synovial cyst of popliteal space [Baker], left knee; I71.2 Thoracic aortic aneurysm, without rupture; M79.89 Other specified soft tissue disorders; F17.210 Nicotine dependence, cigarettes, uncomplicated; Z79.899 Other long term (current) drug therapy; Z79.82 Long term (current) use of aspirin; Z79.1 Long term (current) use of non-steroidal anti-inflammatories (NSAID)
CPT/HCPCS: 20610; 36415; 73552; 73564; 73590; 80048; 80076; 82945; 83735; 84560; 85025; 85027; 85652; 86140; 86430; 87070; 87116; 87205; 87206; 87631; 89051; 89060; 93971; 96372; 96374; 97161; 97530; 99284; J1650; J2270

== ENCOUNTER → 2021-05-17 | Outpatient (REF) | payer SELFPAY ==
[~2021-05-17] MED LIST changes: +ACET-683 PO; +ASPI81TA27 PO; +IRON65TA2 PO; +LEVO500T4; +NAPR-885 PO; +ONDA-84 PO; -ONDA8TAB10 PO; +PANT40TA29 PO; -PROC10TA4 PO; +PROC10TA5 PO
== END ==
LOC: M SMT 12:59
PROVIDERS: ATTEND Urology
DX: N32.89 Other specified disorders of bladder (principal)

== ENCOUNTER → 2021-05-23 | Outpatient (CLI) | payer MEDICARE, SELFPAY ==
[~2021-05-23] MED LIST changes: -ACET-683 PO; +ISOVUE-370 76% 100ML VIAL As Ordered ONE; +LEVO500T3; -LEVO500T4; -ONDA-84 PO; +ONDA8TAB10 PO; +PROC10TA4 PO; -PROC10TA5 PO
--- NOTE | 2021-05-23 13:04 | REP ---
INDICATION: PULMONARY NODULE COMPARISON: 01/17/2021 TECHNIQUE: Standard helical technique after the intravenous administration of 100 cc Isovue 370 FINDINGS: The mediastinum and pulmonary beatris are unchanged. There is no evidence of a mass or adenopathy. There are no pleural or pericardial effusions. There is no significant change in appearance of the imaged upper abdomen or imaged osseous structures. Evaluation of the lung osuna again shows emphysematous changes status quo. The 5 mm size nodule seen previously in the left lower lobe abutting the major fissure is essentially unchanged from the prior exam with the technical differences between the examinations are taken into consideration such as slice selection. There is stable appearing biapical pleuroparenchymal scarring. No new abnormal nodules, masses, or opacities have developed. There is cylindrical bronchiectasis status quo. IMPRESSION: Stable CT findings as described above. According to the revised Fleischner society criteria the left lower lobe nodule can now be categorized as a category [address] follow-up is recommended. <Electronically signed by Mickey Coe > 05/23/21 1300
== END ==
LOC: M RAD 12:27
PROVIDERS: ATTEND Family Medicine
DX: R91.1 Solitary pulmonary nodule (principal)
CPT/HCPCS: 71260; Q9967

== ENCOUNTER → 2021-06-15 | Outpatient (CLI) | payer SELFPAY ==
[~2021-06-15] MED LIST changes: -ISOVUE-370 76% 100ML VIAL As Ordered ONE
== END ==
LOC: M WUC 14:40
PROVIDERS: ATTEND Urology
DX: Z01.818 Encounter for other preprocedural examination (principal); D49.4 Neoplasm of unspecified behavior of bladder; N39.0 Urinary tract infection, site not specified

== ENCOUNTER → 2021-06-15 | Outpatient (CLI) | payer SELFPAY ==
--- NOTE | 2021-06-15 14:19 | REP ---
INDICATION: NEOPLASM OF UNSPECIFIED BEHAVIOR OF BLADDER / EKG 1ST COMPARISON: None. TECHNIQUE: PA and lateral. FINDINGS: Mediastinum and cardiac silhouette are normal. [id number] identified with tip in the SVC. Lung osuna are relatively clear and without discrete focal consolidation. Calcified left hilar lymph nodes suggest prior granulomatous disease. No effusion or pneumothorax. Musculoskeletal structures intact. IMPRESSION: No obvious acute cardiopulmonary process appreciated. <Electronically signed by Roel Samayoa > 06/15/21 [id number]
[2021-06-15 16:02] LABS: HEMATOCRIT 38.4 % (42.0-52.0); HEMOGLOBIN 12.4 g/dl (13.5-17.5); MEAN CORPUSCULAR HEMOGLOBIN 32.5 pg (27.0-33.0); MEAN CORPUSCULAR HGB CONC 32.3 g/dl (32.0-36.5); MEAN CORPUSCULAR VOLUME 100.5 fl (80.0-96.0); PLATELET COUNT, AUTOMATED 246 10^3/uL (150-450); RED BLOOD COUNT 3.82 10^6/uL (4.30-6.10); WHITE BLOOD COUNT 8.1 10^3/uL (4.0-10.0)
[2021-06-15 16:17] LABS: BLOOD UREA NITROGEN 22 MG/DL (7-18); CALCIUM LEVEL 9.6 MG/DL (8.8-10.2); CARBON DIOXIDE LEVEL 29 MEQ/L (21-32); CHLORIDE LEVEL 105 MEQ/L (98-107); CREATININE FOR GFR 0.74 MG/DL (0.70-1.30); GLOMERULAR FILTRATION RATE > 60.0 (>49); GLUCOSE, FASTING 77 MG/DL (70-100); POTASSIUM SERUM 3.9 MEQ/L (3.5-5.1); SODIUM LEVEL 138 MEQ/L (136-145)
--- NOTE | 2021-06-17 08:45 | ECGEPIP ---
[facility] Test Date: 2021-06-15 Pat Name: SONU HUYNH Department: Room: - Gender: Male Track Maintainer: dede : [id number] Requested By: FAHAD Vega Order Number: [id number] Reading MD: Adrien Pierce Measurements Intervals Reads Landing Rate: 74 P: 71 MI: 160 QRS: 51 QRSD: 88 T: 37 QT: 386 QTc: 428 Interpretive Statements Sinus rhythm with occasional premature ventricular complexes Comparison tracing not on file Electronically Signed on 06-17-2021 8:44:42 EDT by Adrien Pierce
== END ==
LOC: M LAB 13:39
PROVIDERS: ATTEND Urology
DX: Z01.818 Encounter for other preprocedural examination (principal); D49.4 Neoplasm of unspecified behavior of bladder

== ENCOUNTER → 2021-06-27 | Outpatient (CLI) | payer SELFPAY ==
[~2021-06-27] MED LIST changes: +ACET-683 PO
--- NOTE | 2021-06-28 10:13 | RADONC ---
Radiation Oncology Hx/FUP Radiation Oncology Hx/FUP Date of Service: Jun 27, 2021 Pt Identifier Farooq Faustin is a 71 year old male seen for a followup visit today at the department of radiation oncology for a history of locally advanced adenocarcinoma of the GEJ [id number]. He was deemed inoperable and so underwent ch emoradiation 50.4 Gy in 28 fractions with weekly carbo/taxol from 02/12/21- 03/28/21. Diagnosis/Treatment History Oncologic History Late 2019: Developed globus sensation progressing to more insidious dysphagia to solid foods. He lost 40 lbs unintentionally. 12/16/20: Delayed presentation to ED first out of concern [place], but also due to complete dysphagia to solids with vomiting/epigastric pain and out of concern for continued weight loss. CT head negative. CT abdomen pelvis with distal esophageal mass, and malignant appearing LN along the lesser curvature of the stomach. 12/26/20: EGD with Dr. Tan showing fungating malignant mass in the distal esophagus/GEJ extending to the gastric cardia biopsy showing poorly differentiated adenocarcinoma HER2 equivocal 02/12/21-03/28/21: Chemoradiation 50.4 Gy in 28 fractions with weekly carbo/taxol Recent data: 06/20/21: Metabolic CR in primary tumor and previously avid nodes. No signs of progression Interval History Farooq feels fantastic. He is eating all foods without difficulty including meats and bread. He has no pain in the chest or abdomen. He has been diagnosed with a bladder tumor and is set to undergo TURBT with Dr. Love in the coming week. He has no discernible urinary symptoms. No hematuria or dysuria. He would like his PEG tube removed. Current Therapy Surveillance Stage [id number] adenocarcinoma of the GEJ stage III Social History: Current 1 PPD smoker 50+ pack year history Drinks 1 beer per day on average Allergies / Meds Allergies: Coded Allergies: No Known Allergies (Unverified , 06/19/21) Home Meds Reported Medications Ferrous Sulfate (Iron) 325 Mg Tablet, 325 MG PO 3XW, TAB NO SPECIFIC DAYS 04/18/21 Aspirin (Aspirin EC) 81 Mg Tablet.dr 81 MG PO DAILY 04/18/21 Review of Systems Review of Systems Constitutional: Denies: Fever, Weakness, Fatigue, Weight Loss Eyes: Denies: Pain HEENT: Denies: Head Aches Skin: Denies: Rash Pulmonary: Denies: Dyspnea, Cough Cardiovascular: Denies: Chest Pain, Edema Gastrointestinal: Denies: Abdominal Pain Genitourinary: Denies: Dysuria, Hematuria Musculoskeletal: Denies: Neck pain, Back pain Neurological: Denies: Weakness, Numbness Psych: Reports: Mood Normal Physical Examination Vital Signs Wt 126 lbs T 96.9 P 74 RR 16 BP 131/74 O2 99% Pain 0 Fatigue 0 General Exam: Alert, Cooperative, No Acute Distress Eye Exam: PERRLA, EOMI ENT EXAM: Atraumatic Neck Exam: Supple Chest Exam: Clear to auscultation, Normal air movement; Negative: Wheezing Heart Exam: Rate Normal, Regular Rhythm Abdomen Exam: Soft, Other (PEG site CDI); Negative: Tenderness Extremity Exam: Negative: Edema Skin Exam: Nl turgor and temperature Neuro Exam: Normal Gait, Normal Speech, Cranial Nerves 3-12 NL Psych Exam: Mental status NL Diagnostic and Laboratory Diagnostic Review Radiologic images, relevant labs and pathology reports were personally reviewed and discussed with Mr. Faustin. Assessment and Plan Impression Assessment Mr. Faustin is a 71 year old male with a history of locally advanced adenocarcinoma of the GEJ [id number]. He was deemed inoperable and so underwent chemoradiation 50.4 Gy in 28 fractions with weekly carbo/taxol from 02/12/21- 03/28/21. Discussed his imaging which confirms remission. I recommend with continue q3m follow up, but repeat plain CTs in 6 months time. He agreed. As he is without dysphagia and maintaining a stable weight, I will order his PEG tube removed. He should keep his mediport for now. With respect to the bladder tumor, my hope is that it is only superficial. I will follow up the pathology once obtained. I will see Farooq in 3 months. Performance Status ECOG 0 Plan Follow up in 3 months D/C PEG tube Will obtain scans in 6 months Mr. Faustin was encouraged to call with questions or concerns in the interim period. Billing Statement Total time of [35] minutes was spent preparing for the visit [3], obtaining HPI [6], examining the patient [4], reviewing diagnostic tests [5], discussing management options [8], coordinating care [2], and writing this note [7]. ROSEANNE DUKE MD Jun 28, 2021 10:13
== END ==
LOC: M ONCR 15:16
PROVIDERS: ATTEND General Practice
DX: C15.5 Malignant neoplasm of lower third of esophagus (principal); F17.210 Nicotine dependence, cigarettes, uncomplicated; N28.89 Other specified disorders of kidney and ureter; Z79.82 Long term (current) use of aspirin; Z92.21 Personal history of antineoplastic chemotherapy; Z92.3 Personal history of irradiation; Z93.1 Gastrostomy status

== ENCOUNTER 2021-06-29 09:22 | Day surgery (SDC) | payer SELFPAY ==
[~2021-06-29] VITALS: Ht 170.2 cm; Wt 59.9 kg
[~2021-06-29 09:22] MED LIST changes: -ACET-683 PO; +CONRAY-60 60% 50ML VIAL (Q9961) As Ordered ONE; +EMLA CREAM 5GM TUBE (LIDOCAINE/PRILOCAINE) TOP PRN; +LIDOCAINE 1% MDV 20ML VIAL SQ PRN; +LR 1,000 ML IV ONE; +ceFAZolin SOD 2 GM in IV 1 EA IV ONE
--- OUTSIDE RECORDS SUMMARY | 2021-06-29 09:26 | CCD ---
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 Active confirmed 75857657 Problem Bladder tumor D49.4 Active confirmed 547884 006 Problem UTI (urinary tract infection) N39.0 Active confirm ed 40962109 Problem Pulmonary nodule R91.1 Active confirmed 786 505792 Problem Bladder mass N32.89 Active confirmed 4083410 04 Problem Abdominal aortic aneurysm (AAA) without rupture I7 1.4 Active confirmed 05426503 Problem Preop testing Z01.818 Active confirmed 90573 9001 ALLERGIES No Known Allergies ENCOUNTERS from 1950 to 2021-06-11 Encounter Location Date Provider Diagnosis [address] [place] [address] Jun, Florecita Elam Annual physical exam Z00.00 ; Abdominal aortic aneurysm (AAA) without rupture I71.4 and Right eye injury, initial encounter S05.91XA IMMUNIZATIONS Vaccine Route Administration Date Status Pneumococcal Adult 0.5mL Pneumovax 23 IM Intramuscular May 03, 2021 Administered SOCIAL HISTORY Tobacco Use: Social History Observation Description Date Details (start date - stop date) Current Smoker Sex Assigned At : Social History Observation Description Sex Assigned At Unknown Education: Question Answer Notes Level of Education: High School Audit Question Answer Notes Total Score: 0 Interpretation: Alcohol Education Language: Question Answer Notes Languages spoken: Turkmen Sikhism: Question Answer Notes Sikhism No tenriism beliefs that would impact health care. Drug and Alcohol Question Answer Notes Total Score: 0 Interpretation: No problems reported Alcohol Screening: Question Answer Notes Did you have a drink containing alcohol in the past year? Ye s Points 1 Interpretation Negative How often did you have six or more drinks on one occas ion in the past year? Never (0 points) How many drinks did you have on a typica l day when you were drinking in the past year? 1 or 2 (0 points) How often did you have a drink containing alcohol in t he past year? Monthly or less (1 point) Tobacco Use: Question Answer Notes Are you a: current smoker 1/2 pack; rolls own cigarettes Patient counseled on the dangers of tobacco use and urged to quit: 06/06/2021 How many cigarettes a day do you smoke? 6-10 Are you interested in quitting? Not ready to quit Counseled the patient on smoking effects, education provided 06/06/2021 REASON FOR REFERRAL from 1950 to 2021-06-11 Reason Scratched R eye yesterday wi th pine needle, reports a previous injury to that eye with apparent residual scar ("that white spot.") Denies change in vision. Please eval and treat. Diagnosis 1 Right eye injury, initial en counter (S05.91XA) Referral Organization [facility] Tim Referring Provider First Name Florecita Referring Provider Last Name Marialuisa Referring Provider Specialty Family Medicine Referred Provider [facility] Referred Provider Specialty Ophthalmology Referral Priority Urgent Referral Appointment Date 2021-06-08 General Notes David Govea 06/06/2021 1:07 :13 PM > faxedDavid Govea 06/07/2021 2:00:16 PM > called to check on referral, lmom to please return my callDavid Govea 06/07/2021 4:38:53 PM > pt. has appt. 06/08/21 at 9am [facility] location VITAL SIGNS Weight 138.6 lbs Jun, Weight-kg 62.87 kg Jun, Height 66 in Jun, BMI 22.37 kg/m2 Jun, Heart Rate 90 /min Jun, Respiratory Rate 18 /min Jun, Temperature 98.5 degrees Fahrenheit Jun, Oximetry 100 Jun, Blood pressure systolic 138 mm Hg Jun, Blood pressure diastolic 74 mm Hg Jun, MEDICATIONS Medication SIG (Take, Route, Frequency, Duration) Notes Start Da te End Date Status Aspirin 81 MG 1 tablet Orally Once a day for 30 day(s) Active oxyCODONE HCl 5 MG 1 tablet as needed Orally every 6 hrs Not-Taking Enoxaparin Sodium 40 MG/0.4ML INJECT 40MG (CONTENTS OF 1 SYRINGE) SUBCUTANEOUSLY ONCE DAILY FOR 6 DAYS Subcutaneous for 6 Not-Taking Iron (Ferrous Sulfate) 325 (65 Fe) MG 1 tablet Orally every other day Active Aleve 220 MG 1 tablet with food or milk as needed Orally every 12 hrs Not-Taking Levaquin 500 MG 1 tablet Orally Once a day for 10 day(s) Active PROCEDURES No Information RESULTS No Results REASON FOR VISIT annual wellness MEDICAL (GENERAL) HISTORY Type Description Date Medical History esophageal cancer Medical History back pain with hx of surgery following d airy cow falling on him Medical History injury to right leg followin g tractor accident in 1970s, with chronic wound Medical History Wound of right lower extremity, initial encounter Medical History infrarenal abdominal aortic aneurysm 3.3 cm (11/2020) Medical History pulmonary nodule (12/2020) Medical History G tube in place for feeding, not in curr ent use Medical History R sided port Medical History childhood nasal fracture with deviated s eptum Surgical History back sugery 1990 Surgical History right knee I&D 1974 Surgical History right knee I&D 2016 Surgical History RADIATION 2020 Surgical History CYSTOSCOPY 2020 Hospitalization History surgery related Goals Section No Information Health Concerns No Information MEDICAL EQUIPMENT No Information MENTAL STATUS No Information FUNCTIONAL STATUS No Information ASSESSMENTS Encounter Date Diagnosis Assessment Notes Treatment Notes Treatm ent Clinical Notes Jun, Annual physical exam (ICD-10 - Z00.00) Patient seen and examined. Past medical, surgical, family, social history reviewed. Discussed preventive medicine, including immunizations. Appropriate labwork was ordered. Jun, Abdominal aortic aneurysm (AAA) without rupture (ICD-10 - I71.4) US ordered. Jun, Right eye injury, initial encounter (ICD-10 - S0 5.91XA) Referred to ophthalmology. Advised eye pro when cutting wood. Jun, Other Filled out disa bility paperwork. PLAN OF TREATMENT Treatment Notes Assessment Notes Clinical Notes Annual physical exam Patient seen and ex amined. Past medical, surgical, family, social history reviewed. Discussed preventive medicine, including immunizations. Appropriate labwork was ordered. Abdominal aortic aneurysm (AAA) without rupture US ordered. Right eye injury, initial encounter Refe rred to ophthalmology. Advised eye pro when cutting wood. Future Test Test Name Order Date CBC with Differential [id number] Comprehensive Metabolic Profile (CMP) 20210606 LIPID PANEL (CARDIAC RISK) [id number] AORTA US PLZ or [facility] [id number] Referrals Referral Date Details 2021-06-08 2021-06-08, Scratched R eye yesterday with pine needle, reports a previous injury to that eye with apparent residual scar ("that white spot.") Denies change in vision. Please eval and treat., [facility] Next Appt Details 4-6 weeks Reason:f/u Provider Name:Gisela Chavez, 06-12 11:00:00 AM, [address], , [place], [address], Provider Name:Florecita Elam, 2021-06-15 01:00:00 PM, [address], , [place], [address], Provider Name:Gisela Chavez, 06-26 09:00:00 AM, [address], , [place], [address], Provider Name:Evangelina Gomez, 8 10:45:00 AM, [address], , [place], [address], Follow Up:4-6 weeksf/u Insurance Providers Payer Name Payer Address Payer Phone Insured Name Patient Relati onship to Insured Coverage Start Date Coverage End Date SELF PAY ONLY - SP1 SONU HUYNH self
--- OUTSIDE RECORDS SUMMARY | 2021-06-29 09:26 | CCD ---
Author Author 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 Active confirmed 03162996 Problem Bladder tumor D49.4 Active confirmed 229407 006 Problem UTI (urinary tract infection) N39.0 Active confirm ed 71614049 Problem Pulmonary nodule R91.1 Active confirmed 786 438337 Problem Bladder mass N32.89 Active confirmed 8784150 04 Problem Abdominal aortic aneurysm (AAA) without rupture I7 1.4 Active confirmed 94650127 Problem Preop testing Z01.818 Active confirmed 10322 9001 ALLERGIES No Known Allergies ENCOUNTERS from 1950 to 2021-06-14 Encounter Location Date Provider Diagnosis [facility] [address] [place] [address] [place] [address] Jun, Gisela Chavez 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 Drug [...] effects, education provided 06/06/2021 REASON FOR REFERRAL No Information VITAL SIGNS Weight 138.6 lbs Jun, Weight-kg 62.87 kg Jun, Height 66 in Jun, BMI 22.37 kg/m2 Jun, Heart Rate 89 /min Jun, Respiratory Rate 18 /min Jun, Temperature 98.6 degrees Fahrenheit Jun, Oximetry 97 Jun, Blood pressure systolic 143 mm Hg Jun, Blood pressure diastolic 66 mm Hg Jun, MEDICATIONS Medication SIG (Take, Route, Frequency, Duration) Notes Start Da te End Date Status Iron (Ferrous Sulfate) 325 (65 Fe) MG 1 tablet Orally every other day Active Enoxaparin Sodium 40 MG/0.4ML INJECT 40MG (CONTENTS OF 1 SYRINGE) SUBCUTANEOUSLY ONCE DAILY FOR 6 DAYS Subcutaneous for 6 Not-Taking oxyCODONE HCl 5 MG 1 tablet as needed Orally every 6 hrs Not-Taking Aspirin 81 MG 1 tablet Orally Once a day for 30 day(s) Active Levaquin 500 MG 1 tablet Orally Once a day for 10 day(s) Not-Taking Aleve 220 MG 1 tablet with food or milk as needed Orally every 12 hrs Not-Taking PROCEDURES from 1950 to 2021-06-14 Procedure Date Ordered Result Body Site Medication: 4% Lidocaine topical cream (Anecream) 5gm 2021-06-12 N/A RESULTS No Results REASON FOR VISIT Right Knee MEDICAL (GENERAL) HISTORY Type Description Date Medical History esophageal cancer, unresectable, s/p chad mo and radiation Medical History back pain with hx of surgery following d airy cow falling on him Medical History injury to right leg following tractor ac cident in Medical History Wound of right lower extremity, initial encounter Medical History infrarenal abdominal aortic aneurysm 3.3 cm (11/2020) Medical History pulmonary nodule (12/2020) Medical History THROAT CANCER Medical History GASTROINTESTINAL TUBE Surgical History back sugery 1990 Surgical History right knee I&D 1974 Surgical History right knee I&D 2016 Surgical History RADIATION 2020 Surgical History CYSTOSCOPY 2020 Hospitalization History surgery related Goals Section No Information Health Concerns No Information MEDICAL EQUIPMENT No Information MENTAL STATUS No Information FUNCTIONAL STATUS No Information ASSESSMENTS Encounter Date Diagnosis Assessment Notes Treatment Notes Treatm ent Clinical Notes Jun, Non-pressure ulcer of right lower extremity with fat layer exposed (ICD-10 - L97.912) Dressing changes 3x a week. The dressing should follow those documented in the procedure note Vashe lot: [id number] exp:07/23 PLAN OF TREATMENT Treatment Notes Assessment Notes Clinical Notes Non-pressure ulcer of right lower extremity with fat l darrin exposed Dressing changes 3x a week. The dressing should follow those documented in the procedure note Vashe lot: [id number] exp:07/23 Next Appt Details 2 Weeks Reason: Provider Name:Florecita Elam, 2021-06-15 01:00:00 PM, [address], , [place], [address], Provider Name:Gisela Chavez, 06-27 02:00:00 PM, [address], , [place], [address], Provider Name:Evangelina Gomez, 8 10:45:00 AM, [address], , [place], [address], Insurance Providers Payer Name Payer Address Payer Phone Insured Name Patient Relati onship to Insured Coverage Start Date Coverage End Date SELF PAY ONLY - SP1 SONU HUYNH self
--- OUTSIDE RECORDS SUMMARY | 2021-06-29 09:26 | CCD ---
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 Active confirmed 37231950 ALLERGIES No Known Allergies ENCOUNTERS from 1950 to 2021-04-06 Encounter Location Date Provider Diagnosis [facility] [address] [facility] [phone] [place] [address] Apr, Gisela Chavez 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 Alcohol Screening: Question Answer Notes Did you [...] current smoker 1/2 pack; rolls own cigarettes REASON FOR REFERRAL No Information VITAL SIGNS Weight 128 lbs Apr, Height 66 in Apr, BMI 20.66 kg/m2 Apr, Heart Rate 82 /min Apr, Respiratory Rate 16 /min Apr, Temperature 98 degrees Fahrenheit Apr, Oximetry 99 Apr, Blood pressure systolic 89 mm Hg Apr, Blood pressure diastolic 61 mm Hg Apr, MEDICATIONS Medication SIG (Take, Route, Frequency, Duration) Notes Start Da te End Date Status Aspirin 81 MG 1 tablet Orally Once a day for 30 day(s) Active oxyCODONE HCl 5 MG 1 tablet as needed Orally every 6 hrs Active Levaquin 500 MG 1 tablet Orally Once a day for 10 day(s) Active Aleve 220 MG 1 tablet with food or milk as needed Orally every 12 hrs Active PROCEDURES from 1950 to 2021-04-06 Procedure Date Ordered Result Body Site Medication: 4% Lidocaine topical cream (Anecream) 5gm 2021-04-05 N/A RESULTS No Results REASON FOR VISIT Rt Knee Wound MEDICAL (GENERAL) HISTORY Type Description Date Medical History esophagel cancer Medical History back pain with hx of surgery following d airy cow falling on him Medical History injury to right leg following tractor ac cident in Medical History Wound of right lower extremity, initial encounter Surgical History back sugery 1990 Surgical History right knee I&D 1974 Surgical History right knee I&D 2016 Hospitalization History surgery related Goals Section No Information Health Concerns No Information MEDICAL EQUIPMENT No Information MENTAL STATUS No Information FUNCTIONAL STATUS No Information ASSESSMENTS Encounter Date Diagnosis Assessment Notes Treatment Notes Treatm ent Clinical Notes Apr, Non-pressure ulcer of right lower extremity with fat layer exposed (ICD-10 - L97.912) Dressing changes 3x a week. The dressing should follow those documented in the procedure note PLAN OF TREATMENT Medication Medication Name Sig Start Date Stop Date Levaquin 500 MG 1 tablet Orally Once a day for 10 day(s) Treatment Notes Assessment Notes Clinical Notes Non-pressure ulcer of right lower extremity with fat l darrin exposed Dressing changes 3x a week. The dressing should follow those documented in the procedure note Next Appt Details 1 Week Reason: Provider Name:Gisela Chavez, 04-19 04:00:00 PM, [address], , [place], [address], Provider Name:Florecita TrevizoAdairkentonadam, 2021-05-03 03:00:00 PM, [address], , [place], [address], Insurance Providers Payer Name Payer Address Payer Phone Insured Name Patient Relati onship to Insured Coverage Start Date Coverage End Date SELF PAY ONLY - SP1 SONU HUYNH self
--- OUTSIDE RECORDS SUMMARY | 2021-06-29 09:26 | CCD ---
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 Active confirmed 80050543 ALLERGIES No Known Allergies ENCOUNTERS from 1950 to 2021-04-27 Encounter Location Date Provider Diagnosis [facility] [address] [facility] [phone] [place] [address] Apr, Gisela Chavez 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 IMMUNIZATIONS No Information SOCIAL HISTORY Tobacco Use: Social History Observation Description Date Details (start date - stop date) Current Smoker Sex Assigned At : Social History Observation Description Sex Assigned At Unknown Education: Question Answer Notes Level of Education: High School Language: Question Answer Notes Languages spoken: Spanish Yarsanism: Question Answer Notes Yarsanism No quaker beliefs that would impact health care. Alcohol [...] Apr, BMI 20.66 kg/m2 Apr, Heart Rate 101 /min Apr, Respiratory Rate 16 /min Apr, Temperature 98 degrees Fahrenheit Apr, Oximetry 100 Apr, Blood pressure systolic 150 mm Hg Apr, Blood pressure diastolic 65 mm Hg Apr, MEDICATIONS Medication SIG (Take, Route, Frequency, Duration) Notes Start Da te End Date Status oxyCODONE HCl 5 MG 1 tablet as needed Orally every 6 hrs Active Levaquin 500 MG 1 tablet Orally Once a day for 10 day(s) Active Aspirin 81 MG 1 tablet Orally Once a day for 30 day(s) Active Aleve 220 MG 1 tablet with food or milk as needed Orally every 12 hrs Active PROCEDURES from 1950 to 2021-04-27 Procedure Date Ordered Result Body Site Medication: 4% Lidocaine topical cream (Anecream) 5gm 2021-04-26 N/A RESULTS Component Value Reference Range Comprehensive Metabolic Profile (CMP) Reviewed date:04/26/2021 14:02:55 Interpretation: Performing Lab:[facility], ,[facility] COMPREHENSIVE METABOLIC PROFILE ELECTROLYTE PROFILE GLUCOSE BUN CREATININE WITH GFR CREATININE GLOMERULAR FILTRATION RATE SODIUM POTASSIUM CHLORIDE CARBON DIOXIDE CALCIUM AST/SGOT ALT/SGPT ALK PHOS BILIRUBIN,TOTAL TOTAL PROTEIN ALBUMIN ALB/GLOB RATIO REASON FOR VISIT Rt Knee Wound MEDICAL [...] Next Appt Details 1 Week Reason: Provider Name:Florecita Elam, 2021-05-03 03:00:00 PM, [address], , [place], [address], Insurance Providers Payer Name Payer Address Payer Phone Insured Name Patient Relati onship to Insured Coverage Start Date Coverage End Date SELF PAY ONLY - SP1 SONU HUYNH self
--- OUTSIDE RECORDS SUMMARY | 2021-06-29 09:26 | CCD ---
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 Active confirmed 30109527 Problem Bladder tumor D49.4 Active confirmed 209545 006 Problem UTI (urinary tract infection) N39.0 Active confirm ed 24933732 Problem Pulmonary nodule R91.1 Active confirmed 786 580842 Problem Bladder mass N32.89 Active confirmed 2329679 04 Problem Abdominal aortic aneurysm (AAA) without rupture I7 1.4 Active confirmed 16803034 Problem Preop testing Z01.818 Active confirmed 66179 9001 ALLERGIES No Known Allergies ENCOUNTERS from 1950 to 2021-06-26 Encounter Location Date Provider Diagnosis [address] [place] [address] Jun, Florecita Elam IMMUNIZATIONS Vaccine Route Administration Date Status Pneumococcal [...] Education Language: Question Answer Notes Languages spoken: Norwegian Scientologist: Question Answer Notes Scientologist No zoroastrianism beliefs that would impact health care. Drug [...] REASON FOR REFERRAL No Information VITAL SIGNS No information MEDICATIONS Medication SIG (Take, Route, Frequency, Duration) Notes Start Da te End Date Status Aleve 220 MG 1 tablet with food or milk as needed Orally every 12 hrs Not-Taking Levaquin 500 MG 1 tablet Orally Once a day for 10 day(s) Not-Taking Aspirin 81 MG 1 tablet Orally Once a day for 30 day(s) Active Iron (Ferrous Sulfate) 325 (65 Fe) MG 1 tablet Orally every other day Active oxyCODONE HCl 5 MG 1 tablet as needed Orally every 6 hrs Not-Taking Enoxaparin Sodium 40 MG/0.4ML INJECT 40MG (CONTENTS OF 1 SYRINGE) SUBCUTANEOUSLY ONCE DAILY FOR 6 DAYS Subcutaneous for 6 Not-Taking PROCEDURES No Information RESULTS No Results REASON FOR VISIT clearance MEDICAL (GENERAL) HISTORY Type Description Date Medical [...] No Information FUNCTIONAL STATUS No Information ASSESSMENTS No Information PLAN OF TREATMENT Next Appt Details Provider Name:Gisela Chavez, 06-27 02:00:00 PM, [address], , [place], [address], Provider Name:Evangelina Fan Jason, 8 10:45:00 AM, [address], , [place], [address], Insurance Providers Payer Name Payer Address Payer Phone Insured Name Patient Relati onship to Insured Coverage Start Date Coverage End Date SELF PAY ONLY - SP1 SONU HUYNH self
--- OUTSIDE RECORDS SUMMARY | 2021-06-29 09:26 | CCD ---
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 Active confirmed [id number] ALLERGIES No Known Allergies ENCOUNTERS from 1950 to 2021-04-18 Encounter Location Date Provider Diagnosis [facility] [address] [facility] [phone] [place] [address] Apr, Gisela Chavez IMMUNIZATIONS No Information SOCIAL HISTORY Tobacco Use: Social History Observation Description Date Details (start date - stop date) Current Smoker Sex Assigned At : Social History Observation Description Sex Assigned At Unknown Education: Question Answer Notes Level of Education: High School Language: Question Answer Notes Languages spoken: Romanian Confucianism: Question Answer Notes Confucianism No latter day beliefs that would impact health care. Alcohol [...] needed Orally every 12 hrs Active PROCEDURES No Information RESULTS No Results REASON FOR VISIT R/S WCC apt MEDICAL (GENERAL) HISTORY Type Description Date Medical [...] Information ASSESSMENTS No Information PLAN OF TREATMENT Medication Medication Name Sig Start Date Stop Date Levaquin 500 MG 1 tablet Orally Once a day for 10 day(s) Next Appt Details Provider Name:Gisela Chavez, 04-26 02:00:00 PM, [address] [facility], , [place], [address], Provider Name:Florecita Elam, 2021-05-03 03:00:00 PM, [address], , [place], [address], Insurance Providers Payer Name Payer Address Payer Phone Insured Name Patient Relati onship to Insured Coverage Start Date Coverage End Date SELF PAY ONLY - SP1 SONU HUYNH self
--- OUTSIDE RECORDS SUMMARY | 2021-06-29 09:26 | CCD ---
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 Active confirmed [id number] ALLERGIES No Known Allergies ENCOUNTERS from 1950 to 2021-03-31 Encounter Location Date Provider Diagnosis [facility] [address] [facility] [phone] [place] [address] Mar, Gisela Chavez 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 IMMUNIZATIONS No Information SOCIAL HISTORY Tobacco Use: Social History Observation Description Date Details (start date - stop date) Current Smoker Sex Assigned At : Social History Observation Description Sex Assigned At Unknown Education: Question Answer Notes Level of Education: High School Language: Question Answer Notes Languages spoken: Irish Moravian: Question Answer Notes Moravian No latter day beliefs that would impact [...] No Information VITAL SIGNS Weight 128 lbs Mar, Weight-kg PER PT kg Mar, Height 66 in Mar, BMI 20.66 kg/m2 Mar, Heart Rate 56 /min Mar, Respiratory Rate 17 /min Mar, Temperature 98.4 degrees Fahrenheit Mar, Oximetry 98% Mar, Blood pressure systolic 130 mm Hg Mar, Blood pressure diastolic 60 mm Hg Mar, MEDICATIONS Medication SIG (Take, Route, Frequency, Duration) Notes Start Da te End Date Status Levaquin 500 MG 1 tablet Orally Once a day for 10 day(s) Active oxyCODONE HCl 5 MG 1 tablet as needed Orally every 6 hrs Active Aspirin 81 MG 1 tablet Orally Once a day for 30 day(s) Active Aleve 220 MG 1 tablet with food or milk as needed Orally every 12 hrs Active PROCEDURES from 1950 to 2021-03-31 Procedure Date Ordered Result Body Site Medication: 4% Lidocaine topical cream (Anecream) 5gm 2021-03-29 N/A RESULTS No Results REASON FOR VISIT [...] Notes Treatment Notes Treatm ent Clinical Notes Mar, Non-pressure ulcer of right lower extremity with fat layer exposed (ICD-10 - L97.912) Mar, Other [place] [address] [id number] 05/23 EXP 10/23 APPLIED TO RIGHT KNEE WOUND FOR 10 MINUTE SOAK. EC PLAN OF TREATMENT Medication Medication Name Sig Start Date Stop Date Levaquin 500 MG 1 tablet Orally Once a day for 10 day(s) Next Appt Details 1 Week Reason: Provider Name:Gisela Chavez, 04-05 03:15:00 PM, [address], [facility] [place] [address], Insurance Providers Payer Name Payer Address Payer Phone Insured Name Patient Relati onship to Insured Coverage Start Date Coverage End Date SELF PAY ONLY - SP1 SONU HUYNH self
--- OUTSIDE RECORDS SUMMARY | 2021-06-29 09:26 | CCD ---
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 Active confirmed 00620209 Problem Bladder tumor D49.4 Active confirmed 760893 006 Problem UTI (urinary tract infection) N39.0 Active confirm ed 43848069 Problem Pulmonary nodule R91.1 Active confirmed 786 911419 Problem Bladder mass N32.89 Active confirmed 3101088 04 Problem Abdominal aortic aneurysm (AAA) without rupture I7 1.4 Active confirmed 64719111 Problem Preop testing Z01.818 Active confirmed 22936 9001 ALLERGIES No Known Allergies ENCOUNTERS from 1950 to 2021-06-26 Encounter Location Date Provider Diagnosis [address] [place] [address] 4 Jun, Florecita Elam Pre-op exam Z01.818 and Bladder mass N32 .89 IMMUNIZATIONS Vaccine Route Administration Date Status Pneumococcal [...] Education Language: Question Answer Notes Languages spoken: Czech Yazidism: Question Answer Notes Yazidism No scientology beliefs that would impact health care. Drug [...] FOR REFERRAL No Information VITAL SIGNS Weight 134 lbs Jun, Weight-kg 60.78 kg Jun, Height 66 in Jun, BMI 21.63 kg/m2 Jun, Heart Rate 94 /min Jun, Respiratory Rate 18 /min Jun, Temperature 98.2 degrees Fahrenheit Jun, Oximetry 100 Jun, Blood pressure systolic 122 mm Hg Jun, Blood pressure diastolic 78 mm Hg Jun, MEDICATIONS Medication SIG (Take, [...] Information RESULTS No Results REASON FOR VISIT cystoscopy and turb- @[facility] by Dr. Brewster general anesthesia dx: N32.89 surg date 06/29/21; CBC,BMP,UA,EKG MEDICAL (GENERAL) HISTORY Type Description Date Medical [...] Treatment Notes Treatm ent Clinical Notes Jun, Pre-op exam (ICD-10 - Z01.818) Patient seen and examined; past medical, surgical, social history reviewed. He can perform 5.5 METs of activity without cardiac symptoms. RCRI suggests low risk of MACE. Recent labwork reviewed. Medications reviewed; advised to hold all medications the day of procedure; stop aspirin now prior to procedure. He is medically optimzed for his procedure. Jun, Bladder mass (ICD-10 - N32.89) PLAN OF TREATMENT Treatment Notes Assessment Notes Clinical Notes Pre-op exam Patient seen and exa mined; past medical, surgical, social history reviewed. He can perform 5.5 METs of activity without cardiac symptoms. RCRI suggests low risk of MACE. Recent labwork reviewed. Medications reviewed; advised to hold all medications the day of procedure; stop aspirin now prior to procedure. He is medically optimzed for his procedure. Next Appt Details mid to late July Reason: Provider Name:Gisela Chavez, 06-27 02:00:00 PM, [address], , [place], [address], Provider Name:Evangelina Gomez, 8 10:45:00 AM, [address], , [place], [address], Insurance Providers Payer Name Payer Address Payer Phone Insured Name Patient Relati onship to Insured Coverage Start Date Coverage End Date SELF PAY ONLY - SP1 BYLOW,SONU K self
--- OUTSIDE RECORDS SUMMARY | 2021-06-29 09:26 | CCD ---
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 Active confirmed 10682981 Problem Abdominal aortic aneurysm (AAA) without rupture I7 1.4 Active confirmed 65500288 ALLERGIES No Known Allergies ENCOUNTERS from 1950 to 2021-05-20 Encounter Location Date Provider Diagnosis [address] [place] [address] May, Florecita Elam Pulmonary nodule R91.1 ; Bladder mass N3 2.89 ; Abdominal aortic aneurysm (AAA) without rupture I71.4 and Encounter for immunization Z23 IMMUNIZATIONS Vaccine Route Administration Date Status Pneumococcal [...] Education Language: Question Answer Notes Languages spoken: Lebanese Gnosticist: Question Answer Notes Gnosticist No jain beliefs that would impact health care. Drug [...] pack; rolls own cigarettes REASON FOR REFERRAL from 1950 to 2021-05-20 Reason Seen incidentally on CT abd/ pelvis; recommended consideration of cystoscopy. Please eval and treat. Diagnosis 1 Bladder mass (N32.89) Referral Organization [facility] Tim Referring Provider First Name Florecita Referring Provider Last Name Marialuisa Referring Provider Specialty Family Medicine Referred Organization [facility] Referred Provider Jamar Love Referred Address [phone] ,[place], [place],[address] Referred Provider Specialty Urology Referral Priority Routine Referral Appointment Date 2021-05-17 General Notes David Govea 05/09/2021 7:32: 56 AM > faxedDavid Govea 05/09/2021 7:33:53 AM > I just came back from vacation today, so I faxed referral todayDavid Govea 05/11/2021 7:05:50 AM > 05/17/[address] Rosario, 2:30pm VITAL SIGNS Weight 132.6 lbs May, Height 66 in May, BMI 21.40 kg/m2 May, Heart Rate 97 /min May, Respiratory Rate 18 /min May, Temperature 98.7 degrees Fahrenheit May, Oximetry 99 May, Blood pressure systolic 120 mm Hg May, Blood pressure diastolic 68 mm Hg May, MEDICATIONS Medication SIG (Take, Route, Frequency, Duration) Notes Start Da te End Date Status Aleve 220 MG 1 tablet with food or milk as needed Orally every 12 hrs Not-Taking Enoxaparin Sodium 40 MG/0.4ML INJECT 40MG (CONTENTS OF 1 SYRINGE) SUBCUTANEOUSLY ONCE DAILY FOR 6 DAYS Subcutaneous for 6 Not-Taking oxyCODONE HCl 5 MG 1 tablet as needed Orally every 6 hrs Not-Taking Iron (Ferrous Sulfate) 325 (65 Fe) MG 1 tablet Orally every other day Active Aspirin 81 MG 1 tablet Orally Once a day for 30 day(s) Active Levaquin 500 MG 1 tablet Orally Once a day for 10 day(s) Active PROCEDURES No Information RESULTS No Results REASON FOR VISIT est care MEDICAL (GENERAL) HISTORY Type Description Date Medical [...] knee I&D 2016 Surgical History RADIATION 2020 Hospitalization History surgery related Goals Section No Information Health Concerns No Information MEDICAL EQUIPMENT No Information MENTAL STATUS No Information FUNCTIONAL STATUS No Information ASSESSMENTS Encounter Date Diagnosis Assessment Notes Treatment Notes Treatm ent Clinical Notes May, Pulmonary nodule (ICD-10 - R91.1) Followup chest CT ordered for July. May, Bladder mass (ICD-10 - N32.89) Referred to urology. May, Abdominal aortic aneurysm (AAA) without rupture (ICD-10 - I71.4) Small. Recommend annual US. May, Encounter for immunization (ICD-10 - Z23) Immunizations reviewed. Any questions were answered. Patient agreed to immunization, and received vaccine in office today. PLAN OF TREATMENT Treatment Notes Assessment Notes Clinical Notes Pulmonary nodule Followup chest CT or dered for July. Bladder mass Referred to urology. Abdominal aortic aneurysm (AAA) without rupture Small. Recommend annual US. Encounter for immunization Immunizations reviewed. Any questions were answered. Patient agreed to immunization, and received vaccine in office today. Future Test Test Name Order Date [facility] CT Chest with contrast [id number] Imm: Pneumovax 23 0.5mL IM Pneumococcal [id number] Referrals Referral Date Details 2021-05-17 2021-05-17, Seen incidentall y on CT abd/pelvis; recommended consideration of cystoscopy. Please eval and treat., Jamar Love, [address], [place], [address], Next Appt Details 4 Weeks Reason:annual Provider Name:Owen Rosario, 01:30:00 PM, [address], , [facility], [address], Provider Name:Florecita Elam, 2021-06-06 11:30:00 AM, [address] , , [place], [address], Follow Up:4 Weeksannual Insurance Providers Payer Name Payer Address Payer Phone Insured Name Patient Relati onship to Insured Coverage Start Date Coverage End Date SELF PAY ONLY - SP1 SONU HUYNH self
--- OUTSIDE RECORDS SUMMARY | 2021-06-29 09:26 | CCD ---
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 Active confirmed 86086123 Problem Bladder tumor D49.4 Active confirmed 801408 006 Problem UTI (urinary tract infection) N39.0 Active confirm ed 89820645 Problem Pulmonary nodule R91.1 Active confirmed 786 443761 Problem Bladder mass N32.89 Active confirmed 5908979 04 Problem Abdominal aortic aneurysm (AAA) without rupture I7 1.4 Active confirmed 50935086 Problem Preop testing Z01.818 Active confirmed 94128 9001 ALLERGIES No Known Allergies ENCOUNTERS from 1950 to 2021-05-31 Encounter Location Date Provider Diagnosis [facility] [address] [phone] [place] [address] May, Jamar Love Bladder tumor D49.4 ; Preop testing Z01. 818 and UTI (urinary tract infection) N39.0 IMMUNIZATIONS Vaccine Route Administration Date Status Pneumococcal [...] Education Language: Question Answer Notes Languages spoken: Bengali Confucianism: Question Answer Notes Confucianism No orthodox beliefs that would impact health care. Drug [...] Once a day for 10 day(s) Active Iron (Ferrous Sulfate) 325 (65 Fe) MG 1 tablet Orally every other day Active oxyCODONE HCl 5 MG 1 tablet as needed Orally every 6 hrs Not-Taking Aleve 220 MG 1 tablet with food or milk as needed Orally every 12 hrs Not-Taking Aspirin 81 MG 1 tablet Orally Once a day for 30 day(s) Active Enoxaparin Sodium 40 MG/0.4ML INJECT 40MG (CONTENTS OF 1 SYRINGE) SUBCUTANEOUSLY ONCE DAILY FOR 6 DAYS Subcutaneous for 6 Not-Taking PROCEDURES No Information RESULTS No Results REASON FOR VISIT Lab Order MEDICAL (GENERAL) HISTORY Type Description Date Medical [...] Treatment Notes Treatm ent Clinical Notes May, Bladder tumor (ICD-10 - D49.4) May, Preop testing (ICD-10 - Z01.818) May, UTI (urinary tract infection) (ICD-10 - N39.0) PLAN OF TREATMENT Medication Medication Name Sig Start Date Stop Date Levaquin 500 MG 1 tablet Orally Once a day for 10 day(s) Treatment Notes Test Name Order Date CBC - Complete Blood Count 2021-05-29 URINE CULTURE 2021-05-29 Basic Metabolic Profile (BMP) 2021-05-29 [facility] Chest, 2 view (PA\Lat) 2021-05-29 Electrocardiogram (EKG) 2021-05-29 Coronavirus SARS COVID-19 Amplification (In-House Hosp ital Order) COVID 2021-05-29 Next Appt Details Provider Name:Florecita Elam, 2021-06-06 11:30:00 AM, [address], , [place], [address], Provider Name:Gisela Chavez, 06-12 11:00:00 AM, [address], , [place], [address], Provider Name:Florecita Elam, 2021-06-15 01:00:00 PM, [address], , [place], [address], Provider Name:Evangelina Gomez, 8 10:45:00 AM, [address], , [place], [address], Insurance Providers Payer Name Payer Address Payer Phone Insured Name Patient Relati onship to Insured Coverage Start Date Coverage End Date SELF PAY ONLY - SP1 SONU HUYNH self
--- OUTSIDE RECORDS SUMMARY | 2021-06-29 09:26 | CCD ---
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 Active confirmed 64440958 Problem Abdominal aortic aneurysm (AAA) without rupture I7 1.4 Active confirmed 92777219 ALLERGIES No Known Allergies ENCOUNTERS from 1950 to 2021-05-22 Encounter Location Date Provider Diagnosis [facility] [address] [phone] [place] [address] May, 2021 Owen Rosario Bladder mass N32.89 and Abnormality dete cted on rectal examination of prostate N42.9 IMMUNIZATIONS Vaccine Route Administration Date Status Pneumococcal [...] Education Language: Question Answer Notes Languages spoken: Setswana Restorationism: Question Answer Notes Restorationism No gnosticism beliefs that would impact health care. Drug [...] FOR REFERRAL No Information VITAL SIGNS Weight 135 lbs May, Weight-kg 61.24 kg May, Height 66 in May, BMI 21.79 kg/m2 May, Heart Rate 91 /min May, Respiratory Rate 18 /min May, Temperature 98.0 degrees Fahrenheit May, Oximetry 98 May, Blood pressure systolic 130 mm Hg May, Blood pressure diastolic 72 mm Hg May, MEDICATIONS Medication SIG (Take, Route, Frequency, Duration) Notes Start Da te End Date Status Aspirin 81 MG 1 tablet Orally Once a day for 30 day(s) Active oxyCODONE HCl 5 MG 1 tablet as needed Orally every 6 hrs Not-Taking Aleve 220 MG 1 tablet with food or milk as needed Orally every 12 hrs Not-Taking Iron (Ferrous Sulfate) 325 (65 Fe) MG 1 tablet Orally every other day Active Levaquin 500 MG 1 tablet Orally Once a day for 10 day(s) Active Enoxaparin Sodium 40 MG/0.4ML INJECT 40MG (CONTENTS OF 1 SYRINGE) SUBCUTANEOUSLY ONCE DAILY FOR 6 DAYS Subcutaneous for 6 Not-Taking PROCEDURES No Information RESULTS No Results REASON FOR VISIT bladder mass MEDICAL (GENERAL) HISTORY Type Description Date Medical [...] Notes Treatm ent Clinical Notes May, Bladder mass (ICD-10 - N32.89) Urine cytology sent PSA pending Patient informed that she should also have a biopsy of his prostate Cystoscopy scheduled to evaluate bladder mass May, Abnormality detected on rect al examination of prostate (ICD-10 - N42.9) PLAN OF TREATMENT Treatment Notes Assessment Notes Clinical Notes Bladder mass Urine cytology sentP SA pendingPatient informed that she should also have a biopsy of his prostateCystoscopy scheduled to evaluate bladder mass Future Test Test Name Order Date PSA MONITOR (HX PROSTATE CA/ABNORMAL PSA) [id number] NON SHOP MECHANIC HELPER CYTOLOGY REQ FOR SERVI [id number] Next Appt Details Provider Name:Florecita Elam, 2021-06-06 11:30:00 AM, [address], , [place], [address], Insurance Providers Payer Name Payer Address Payer Phone Insured Name Patient Relati onship to Insured Coverage Start Date Coverage End Date SELF PAY ONLY - SP1 SONU HUYNH self
--- OUTSIDE RECORDS SUMMARY | 2021-06-29 09:26 | CCD ---
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 Drug [...] May, BMI 21.79 kg/m2 May, Heart Rate 76 /min May, Respiratory Rate 18 /min May, Temperature 98.7 degrees Fahrenheit May, Oximetry 98 May, Blood pressure systolic 120 mm Hg [...] 6 DAYS Subcutaneous for 6 Not-Taking PROCEDURES from 1950 to 2021-05-22 Procedure Date Ordered Result Body Site Med: Lidocaine Jelly 2% 6ml Intravesically (Glydo) 2021-05-21 N/A RESULTS No Results REASON FOR VISIT bladder mass seen on CT MEDICAL (GENERAL) HISTORY Type Description Date Medical [...] Notes May, Bladder mass (ICD-10 - N32.89) PLAN OF TREATMENT Treatment Notes Test Name Order Date CBC - Complete Blood Count 2021-05-21 URINE CULTURE 2021-05-21 Basic Metabolic Profile (BMP) 2021-05-21 Electrocardiogram (EKG) 2021-05-21 ADM CHEST 2 VIEW 2021-05-21 Next Appt Details Provider Name:Florecita Elam, 2021-06-06 11:30:00 AM, [id number] , , [place], [address], Insurance Providers Payer Name Payer Address Payer Phone Insured Name Patient Relati onship to Insured Coverage Start Date Coverage End Date SELF PAY ONLY - SP1 SONU [id number] self
--- OUTSIDE RECORDS SUMMARY | 2021-06-29 09:27 | CCD ---
Author Author [facility] Organization [facility] Address Unknown Phone Unavailable Care Team Providers Care Diamond Cleaner Name Role Phone Toi LÓPEZ MD Unavailable Unavailable Toi LÓPEZ MD Unavailable Unavailable Toi LÓPEZ MD Unavailable Unavailable Toi LÓPEZ MD Unavailable Unavailable Toi LÓPEZ MD Unavailable Unavailable Toi LÓPEZ MD Unavailable Unavailable Toi LÓPEZ MD Unavailable Unavailable Toi LÓPEZ MD Unavailable Unavailable Toi LÓPEZ MD Unavailable Unavailable Toi LÓPEZ MD Unavailable Unavailable Toi LÓPEZ MD Unavailable Unavailable Toi LÓPEZ MD Unavailable Unavailable Toi LÓPEZ MD Unavailable Unavailable Toi LÓPEZ MD Unavailable Unavailable Toi LÓPEZ MD Unavailable Unavailable Toi LÓPEZ MD Unavailable Unavailable Toi LÓPEZ MD Unavailable Unavailable Toi LÓPEZ MD Unavailable Unavailable Toi LÓPEZ MD Unavailable Unavailable ARNOLD, P CARMEN Unavailable Unavailable ARNOLD, P CARMEN Unavailable Unavailable ARNOLD, P CARMEN MD Unavailable Unavailable ARNOLD, P CARMEN MD Unavailable Unavailable ARNOLD, P CARMEN MD Unavailable Unavailable ARNOLD, P CARMEN MD Unavailable Unavailable ARNOLD, P CARMEN MD Unavailable Unavailable ARNOLD, P CARMEN MD Unavailable Unavailable ARNOLD, P CARMEN MD Unavailable Unavailable ARNOLD, P CARMEN MD Unavailable Unavailable ARNOLD, P CARMEN MD Unavailable Unavailable ARNOLD, P CARMEN MD Unavailable Unavailable ARNOLD, P CARMEN MD Unavailable Unavailable ARNOLD, P CARMEN MD Unavailable Unavailable ARNOLD, P CARMEN MD Unavailable Unavailable ARNOLD, P CARMEN MD Unavailable Unavailable ARNOLD, P CARMEN MD Unavailable Unavailable RENE, P CARMEN MD Unavailable Unavailable ROSEANNE DUKE MD Unavailable Unavailable ROSEANNE DUKE MD Unavailable Unavailable ROSEANNE DUKE MD Unavailable Unavailable ROSEANNE DUKE MD Unavailable Unavailable ROSEANNE DUKE MD Unavailable Unavailable ROSEANNE DUKE MD Unavailable Unavailable ROSEANNE DUKE MD Unavailable Unavailable ROSEANNE DUKE MD Unavailable Unavailable ROSEANNE DUKE MD Unavailable Unavailable ROSEANNE DUKE MD Unavailable Unavailable ROSEANNE DUKE MD Unavailable Unavailable ROSEANNE DUKE MD Unavailable Unavailable ROSEANNE DUKE MD Unavailable Unavailable ROSEANNE DUKE MD Unavailable Unavailable ROSEANNE DUKE MD Unavailable Unavailable ROSEANNE DUKE MD Unavailable Unavailable Amee LAZAR MD Unavailable Unavailable Amee LAZAR MD Unavailable Unavailable Amee LAZAR MD Unavailable Unavailable Amee LAZAR MD Unavailable Unavailable Amee LAZAR MD Unavailable Unavailable Amee LAZAR MD Unavailable Unavailable Amee LAZAR MD Unavailable Unavailable Amee LAZAR MD Unavailable Unavailable Amee LAZAR MD Unavailable Unavailable Amee LAZAR MD Unavailable Unavailable Amee LAZAR MD Unavailable Unavailable Amee LAZAR MD Unavailable Unavailable Amee LAZAR MD Unavailable Unavailable Amee LAZAR MD Unavailable Unavailable Amee LAZAR MD Unavailable Unavailable Amee LAZAR MD Unavailable Unavailable Amee LAZAR MD Unavailable Unavailable Amee LAZAR MD Unavailable Unavailable Amee LAZAR MD Unavailable Unavailable BARAYUGA, B KYLER MD Unavailable Unavailable BARAYUGA, B KYLER MD Unavailable Unavailable BARAYUGA, B KYLER MD Unavailable Unavailable BARAYUGA, B KYLER MD Unavailable Unavailable BARAYUGA, B KYLER MD Unavailable Unavailable BARAYUGA, B KYLER MD Unavailable Unavailable BARAYUGA, B KYLER MD Unavailable Unavailable BARAYUGA, B KYLER MD Unavailable Unavailable BARAYUGA, B KYLER MD Unavailable Unavailable BARAYUGA, B KYLER MD Unavailable Unavailable BARAYUGA, B KYLER MD Unavailable Unavailable BARAYUGA, B KYLER MD Unavailable Unavailable BARAYUGA, B KYLER MD Unavailable Unavailable BARAYUGA, B KYLER MD Unavailable Unavailable BARAYUGA, B KYLER MD Unavailable Unavailable BARAYUGA, B KYLER MD Unavailable Unavailable Basilio, A Adrien HAND Unavailable Unavailable Basilio, A Adrien HAND Unavailable Unavailable Basilio, A Adrien HAND Unavailable Unavailable Basilio, A Adrien HAND Unavailable Unavailable Basilio, A Adrien HAND Unavailable Unavailable Basilio, A Adrien HAND Unavailable Unavailable Basilio, A Adrien HAND Unavailable Unavailable Basilio, A Adrien HAND Unavailable Unavailable Basilio, A Adrien HAND Unavailable Unavailable Basilio, A Adrien HAND Unavailable Unavailable Basilio, A Adrien HAND Unavailable Unavailable Basilio, A Adrien HAND Unavailable Unavailable Basilio, A Adrien HAND Unavailable Unavailable Basilio, A Adrien HAND Unavailable Unavailable Basilio, A Adrien HAND Unavailable Unavailable Basilio, A Adrien HAND Unavailable Unavailable Basilio, A Adrien HAND Unavailable Unavailable Basilio, A Adrien HAND Unavailable Unavailable Basilio, A Adrien HAND Unavailable Unavailable Basilio, A Adrien Unavailable Unavailable Basilio, A Adrien HAND Unavailable Unavailable Basilio, A Adrien HAND Unavailable Unavailable Basilio, A Adrien HAND Unavailable Unavailable Basilio, A Adrien HAND Unavailable Unavailable Basilio, A Adrien HAND Unavailable Unavailable Basilio, A Adrien HAND Unavailable Unavailable Basilio, A Adrien HAND Unavailable Unavailable Basilio, A Adrien HAND Unavailable Unavailable Basilio, A Adrien Unavailable Unavailable Basilio, A Adrien Unavailable Unavailable Basilio, A Adrien Unavailable Unavailable Basilio, A Adrien Unavailable Unavailable Basilio, A Adrien Unavailable Unavailable Basilio, A Adrien HAND Unavailable Unavailable Basilio, A Adrien HAND Unavailable Unavailable Basilio, A Adrien HAND Unavailable Unavailable Basilio, A Adrien HAND Unavailable Unavailable Basilio, A Adrien HAND Unavailable Unavailable Basilio, A Adrien Unavailable Unavailable Basilio, A Adrien HAND Unavailable Unavailable Basilio, A Adrien HAND Unavailable Unavailable Basilio, A Adrien HAND Unavailable Unavailable Basilio, A Adrien HAND Unavailable Unavailable Basilio, A Adrien HAND Unavailable Unavailable Basilio, A Adrien HAND Unavailable Unavailable Basilio, A Adrien HAND Unavailable Unavailable Basilio, A Adrien HAND Unavailable Unavailable Basilio, A Adrien HAND Unavailable Unavailable Basilio, Elise Jurado MD Unavailable Unavailable Basilio, A Adrien HAND Unavailable Unavailable Basilio, Elise Jurado MD Unavailable Unavailable Basilio, Elise Jurado MD Unavailable Unavailable Basilio, Elise Jurado MD Unavailable Unavailable Basilio, A Adrien HAND Unavailable Unavailable Basilio, Elise Jurado MD Unavailable Unavailable Basilio, A Adrien HAND Unavailable Unavailable Basilio, A Adrien HAND Unavailable Unavailable Basilio, A Adrien HAND Unavailable Unavailable Basilio, A Adrien HAND Unavailable Unavailable Basilio, A Adrien HAND Unavailable Unavailable Basilio, A Adrien HADN Unavailable Unavailable Basilio, A Adrien HAND Unavailable Unavailable YOUNG, A FATUMA LABEL PINKER Unavailable Unavailable YOUNG, A FATUMA LABEL PINKER Unavailable Unavailable YOUNG, A FATUMA LABEL PINKER Unavailable Unavailable YOUNG, A FATUMA LABEL PINKER Unavailable Unavailable YOUNG, A FATUMA LABEL PINKER Unavailable Unavailable YOUNG, A FATUMA LABEL PINKER Unavailable Unavailable YOUNG, A FATUMA LABEL PINKER Unavailable Unavailable YOUNG, A FATUMA LABEL PINKER Unavailable Unavailable YOUNG, A FATUMA LABEL PINKER Unavailable Unavailable BUDNIKROSEANNE MD Unavailable Unavailable BUDNIKROSEANNE MD Unavailable Unavailable BUDNIKROSEANNE MD Unavailable Unavailable BUDNIKROSEANNE MD Unavailable Unavailable BUDNIKROSEANNE MD Unavailable Unavailable BUDNIKROSEANNE MD Unavailable Unavailable BUDNIKROSEANNE MD Unavailable Unavailable BUDNIK, ROSEANNE MD Unavailable Unavailable BUDNIK, ROSEANNE MD Unavailable Unavailable BUDNIK, ROSEANNE MD Unavailable Unavailable BUDNIK, ROSEANNE MD Unavailable Unavailable BUDNIK, ROSEANNE MD Unavailable Unavailable BUDNIK, ROSEANNE MD Unavailable Unavailable BUDNIK, ROSEANNE MD Unavailable Unavailable BUDNIK, ROSEANNE MD Unavailable Unavailable BUDNIK, ROSEANNE MD Unavailable Unavailable Mat, L Khadra LABEL PINKER Unavailable Unavailable Mat, L Khadra LABEL PINKER Unavailable Unavailable Mat, L Khadra LABEL PINKER Unavailable Unavailable Mat, L Khadra LABEL PINKER Unavailable Unavailable Amt, L Khadra LABEL PINKER Unavailable Unavailable Mat, L Khadra LABEL PINKER Unavailable Unavailable Mat, L Khadra LABEL PINKER Unavailable Unavailable Mat, L Khadra LABEL PINKER Unavailable Unavailable Mat, L Khadra LABEL PINKER Unavailable Unavailable Mat, L Khadra LABEL PINKER Unavailable Unavailable Mat, L Khadra LABEL PINKER Unavailable Unavailable Mat, L Khadra LABEL PINKER Unavailable Unavailable Mat, L Khadra LABEL PINKER Unavailable Unavailable Mat, L Khadra LABEL PINKER Unavailable Unavailable Mat, L Khadra LABEL PINKER Unavailable Unavailable Mat, L Khadra LABEL PINKER Unavailable Unavailable Mat, L Khadra LABEL PINKER Unavailable Unavailable Mat, L Khadra LABEL PINKER Unavailable Unavailable Mat, L Khadra LABEL PINKER Unavailable Unavailable Mat, L Khadra LABEL PINKER Unavailable Unavailable Mat, L Khadra LABEL PINKER Unavailable Unavailable Mat, L Khadra LABEL PINKER Unavailable Unavailable Mat, L Khadra LABEL PINKER Unavailable Unavailable Mat, L Khadra LABEL PINKER Unavailable Unavailable Mat, L Khadra LABEL PINKER Unavailable Unavailable Healy I, A Eddie DO Unavailable Unavailable Healy I, A Eddie DO Unavailable Unavailable Healy I, A Eddie DO Unavailable Unavailable Healy I, A Eddie DO Unavailable Unavailable Healy I, A Eddie DO Unavailable Unavailable Healy I, A Eddie DO Unavailable Unavailable Healy I, A Eddie DO Unavailable Unavailable Healy I, A Eddie DO Unavailable Unavailable Healy I, A Eddie DO Unavailable Unavailable Healy I, A Eddie DO Unavailable Unavailable Healy I, A Eddie DO Unavailable Unavailable Healy I, A Eddie DO Unavailable Unavailable Healy I, A Eddie DO Unavailable Unavailable Healy I, A Eddie DO Unavailable Unavailable Healy I, A Eddie DO Unavailable Unavailable Healy I, A Eddie DO Unavailable Unavailable Healy I, A Eddie DO Unavailable Unavailable Healy I, A Eddie DO Unavailable Unavailable Healy I, A Eddie DO Unavailable Unavailable Healy I, A Eddie DO Unavailable Unavailable Healy I, A Eddie DO Unavailable Unavailable Healy I, A Eddie DO Unavailable Unavailable Healy I, A Eddie DO Unavailable Unavailable Healy I, A Eddie DO Unavailable Unavailable Healy I, A Eddie DO Unavailable Unavailable Healy I, A Eddie DO Unavailable Unavailable Healy I, A Eddie DO Unavailable Unavailable Healy I, A Eddie DO Unavailable Unavailable Healy I, A Eddie DO Unavailable Unavailable Healy I, A Eddie DO Unavailable Unavailable Healy I, A Eddie DO Unavailable Unavailable Healy I, A Eddie DO Unavailable Unavailable Healy I, A Eddie DO Unavailable Unavailable Healy I, A Eddie DO Unavailable Unavailable Healy I, A Eddie DO Unavailable Unavailable Healy I, A Eddie DO Unavailable Unavailable Healy I, A Eddie DO Unavailable Unavailable Healy I, A Eddie DO Unavailable Unavailable Healy I, A Eddie DO Unavailable Unavailable Tamara SHEPARD MD Unavailable Unavailable Tamara SHEPARD MD Unavailable Unavailable Tamara SHEPARD MD Unavailable Unavailable Tamara SHEPARD MD Unavailable Unavailable Tamara SHEPARD MD Unavailable Unavailable Tamara SHEPARD MD Unavailable Unavailable Tamara SHEPARD MD Unavailable Unavailable Tamara SHEPARD MD Unavailable Unavailable Tamara SHEPARD MD Unavailable Unavailable Tamara SHEPARD MD Unavailable Unavailable Tamara SHEPARD MD Unavailable Unavailable Tamara SHEPARD MD Unavailable Unavailable Tamara SHEPARD MD Unavailable Unavailable Tamara SHEPARD MD Unavailable Unavailable Tamara SHEPARD MD Unavailable Unavailable Tamara SHEPARD MD Unavailable Unavailable Tamara SHEPARD MD Unavailable Unavailable Tamara SHEPARD MD Unavailable Unavailable Tamara SHEPARD MD Unavailable Unavailable Tamara SHEPARD MD Unavailable Unavailable Tamara SHEPARD MD Unavailable Unavailable Tamara SHEPARD MD Unavailable Unavailable Tamara SHEPARD MD Unavailable Unavailable Tamara SHEPARD MD Unavailable Unavailable Tamara SHEPARD MD Unavailable Unavailable Tamara SHEPARD MD Unavailable Unavailable Tamara SHEPARD MD Unavailable Unavailable Tamara SHEPARD MD Unavailable Unavailable Tamara SHEPARD MD Unavailable Unavailable Tamara SHEPARD MD Unavailable Unavailable Tamara SHEPARD MD Unavailable Unavailable Tamara SHEPARD MD Unavailable Unavailable Tamara SHEPARD MD Unavailable Unavailable Terzolo, Jenny Unavailable Unavailable Terzolo, Jenny Unavailable Unavailable Terzolo, Jenny Unavailable Unavailable Terzolo, Jenny Unavailable Unavailable Terzolo, Jenny Unavailable Unavailable Terzolo, Jenny Unavailable Unavailable Terzolo, Jenny Unavailable Unavailable Terzolo, Jenny Unavailable Unavailable Terzolo, Jenny Unavailable Unavailable Terzolo, Jenny Unavailable Unavailable Terzolo, Jenny Unavailable Unavailable Terzolo, Jenny Unavailable Unavailable Terzolo, Jenny Unavailable Unavailable Terzolo, Jenny Unavailable Unavailable Terzolo, Jenny Unavailable Unavailable Terzolo, Jenny Unavailable Unavailable Terzolo, Jenny Unavailable Unavailable Terzolo, Jenny Unavailable Unavailable Terzolo, Jenny Unavailable Unavailable Terzolo, Jenny Unavailable Unavailable CHANDRALA, K YOU MD Unavailable Unavailable Tamara SHEPARD MD Unavailable Unavailable Tamara SHEPARD MD Unavailable Unavailable Tamara SHEPARD MD Unavailable Unavailable Tamara SHEPARD MD Unavailable Unavailable Tamara SHEPARD MD Unavailable Unavailable Tamara SHEPARD MD Unavailable Unavailable Tamara SHEPARD MD Unavailable Unavailable Tamara SHEPARD MD Unavailable Unavailable Tamara SHEPARD MD Unavailable Unavailable Tamara SHEPARD MD Unavailable Unavailable Tamara SHEPARD MD Unavailable Unavailable Tamara SHEPARD MD Unavailable Unavailable Tamara SHEPARD MD Unavailable Unavailable Tamara SHEPARD MD Unavailable Unavailable Tamara SHEPARD MD Unavailable Unavailable Tamara SHEPARD MD Unavailable Unavailable Tamara SHEPARD MD Unavailable Unavailable Tamara SHEPARD MD Unavailable Unavailable Tamara SHEPARD MD Unavailable Unavailable Tamara SHEPARD MD Unavailable Unavailable Tamara SHEPARD MD Unavailable Unavailable Tamara SHEPARD MD Unavailable Unavailable Tamara SHEPARD MD Unavailable Unavailable Tamara SHEPARD MD Unavailable Unavailable Tamara SHEPARD MD Unavailable Unavailable Tamara SHEPARD MD Unavailable Unavailable Tamara SHEPARD MD Unavailable Unavailable Tamara SHEPARD MD Unavailable Unavailable Tamara SHEPARD MD Unavailable Unavailable Tamara SHEPARD MD Unavailable Unavailable Tamara SHEPARD MD Unavailable Unavailable Tamara SHEPARD MD Unavailable Unavailable Re-disclosure Warning The records that you are about to access may contain information from federally-assisted alcohol or drug abuse programs. If such information is present, then the following federally mandated warning applies: This information has been disclosed to you from records protected by federal confidentiality rules (42 CFR part 2). The federal rules prohibit you from making any further disclosure of this information unless further disclosure is expressly permitted by the written consent of the person to whom it pertains or as otherwise permitted by 42 CFR part 2. A general authorization for the release of medical or other information is NOT sufficient for this purpose. The Federal rules restrict any use of the information to criminally investigate or prosecute any alcohol or drug abuse patient.The records that you are about to access may contain highly sensitive health information, the redisclosure of which is protected by Article 27-F of the [facility] Public Health law. If you continue you may have access to information: Regarding HIV / AIDS; Provided by facilities licensed or operated by the [facility] Office of Mental Health; or Provided by the [facility] Office for People With Developmental Disabilities. If such information is present, then the following [facility] mandated warning applies: This information has been disclosed to you from confidential records which are protected by state law. State law prohibits you from making any further disclosure of this information without the specific written consent of the person to whom it pertains, or as otherwise permitted by law. Any unauthorized further disclosure in violation of state law may result in a fine or halfway sentence or both. A general authorization for the release of medical or other information is NOT sufficient authorization for further disc losure. Allergies and Adverse Reactions Type Description Substance Reaction Status Data Source(s ) Propensity to adverse reactions NO KNOWN ALLERGIES NO KNOWN ALLERGIES [facility] Encounters Encounter Providers Location Date Indications Data Source(s ) Outpatient Attender: FATUMA GOMEZ [facility] 06/25/2021 02:59:0 0 PM EDT [facility] Unknown [address] [facility] [address] 06/25/2021 12:00:00 AM EDT eCW1 ([facility]) (COVIDSWAB) COVID Swab Only [address] [place] [address] 06/25/2021 12:00:00 AM EDT eCW1 ([facility]) [place]patient [address] [facility] [address] 06/21/2021 12:00:00 AM EDT eCW1 ([facility]) Outpatient Attender: ROSEANNE DUKE MD ER-RAD 06/20/2021 01:21:00 AM EDT [facility] Unknown [address] [facility] [address] 06/18/2021 12:00:00 AM EDT eCW1 ([facility]) [place] [address] [facility] [address] 06/15/2021 12:00:00 AM EDT [facility]CW1 [facility]) ([id number]) For Template Fry [address] [place] [address] 06/12/2021 12:00:00 AM EDT eCW1 ([facility]) [place] [address] [facility] [address] 06/06/2021 12:00:00 AM EDT eCW1 ([facility]) [place] [address] [facility] [address] 05/29/2021 12:00:00 AM EDT eCW1 ([facility]) (Cysto1) Urology [address] [place] [address] 05/21/2021 12:00:00 AM EDT eCW1 ([facility]) [place] [address] [facility] [address] 05/17/2021 12:00:00 AM EDT eCW1 ([facility]) [place] [address] [facility] [place] [address] 05/03/2021 12:00:00 AM EDT eCW1 ([facility]) ([id number]) For Template Fry [address] [place] [address] 04/26/2021 12:00:00 AM EDT eCW1 ([facility]) [place] [address] [facility] [address] 04/18/2021 12:00:00 AM EDT eCW1 ([facility]) ([id number]) For Template Fry [address] [place] [address] 04/05/2021 12:00:00 AM EDT eCW1 ([facility]) ([id number]) For Template Fry [address] [place] [address] 03/29/2021 12:00:00 AM EDT eCW1 ([facility]) ([id number]) For Template Fry [address] [place] [address] 03/22/2021 12:00:00 AM EDT eCW1 ([facility]) Outpatient [address] [facility], [facility] [address] 03/15/2021 12:00:00 AM EDT [facility]CW1 [facility]) Preadmit Attender: Khadra Rivero [facility] [id number] 03/09/2021 02:00:00 PM EDT [facility] DYSPHAGIA Outpatient [address] [facility] [address] 03/08/2021 12:00:00 AM EDT eCW1 ([facility]) Outpatient [address] [facility] [address] 02/28/2021 12:00:00 AM EDT eCW1 ([facility]) Outpatient [address] [facility] [address] 02/23/2021 12:00:00 AM EDT eCW1 ([facility]) Unknown [address] [place] [address] 02/19/2021 12:00:00 AM EDT eCW1 ([facility]) ([id number]) For Template Fry [address] [place] [address] 02/16/2021 12:00:00 AM EDT eCW1 ([facility]) Outpatient Attender: Jenny Connolly 02/14/2021 12:00:[address] [facility] (WND NP120) New Patient [address] [place] [address] 02/08/2021 12:00:00 AM EDT eCW1 ([facility]) Outpatient [address] [facility] [address] [place] [address] 02/01/2021 12:00:00 AM EDT eCW1 ([facility]) Outpatient Attender: Jenny Connolly [id number] 01/30/2021 04:01:[address] [facility] Inpatient Attender: Eddie Healy IAdmitter: Eddie cooper I [id number] 01/26/2021 12:00:00 AM EDT - 01/30/2021 03:09:00 PM EDT Illness, unspecified [facility] Illness, unspecified Patient discharged. Outpatient Attender: CARMEN LÓPEZ MD ER-RAD 01/24/2021 03:08:0 0 AM EDT [facility] Outpatient Attender: Eddie Healy IReferrer: ROSEANNE Mcdonald MD [id number] 01/22/2021 12:00:00 AM EDT - 01/23/2021 12:59:[address] [facility] Outpatient Attender: Adrien Basilio MD ER-CARD 01/18/2021 10:14:00 AM EDT [facility] Outpatient [address] [facility] [address] [place] [address] 01/18/2021 12:00:00 AM EDT eCW1 ([facility]) Outpatient [address] [facility] [address] [place] [address] 01/18/2021 12:00:00 AM EDT eCW1 ([facility]) Outpatient [address] [facility] [address] [place] [address] 01/12/2021 12:00:00 AM EDT eCW1 ([facility]) Outpatient Attender: KYLER Corral/Medardo/Regino/ Nyla 01/11/2021 02:45:00 PM EDT [facility] ([facility]) Outpatient Admitter: YOU SHEPARD MDReferrer: BRAEDEN SHEPARD MD 01/01/2021 12:00:00 AM EDT Other specified diseases of intestine [facility] Other specified diseases of intestine Outpatient [address] [facility] [address] [place] [address] 12/20/2020 12:00:00 AM EDT eCW1 ([facility]) Outpatient Attender: YOU Corral/Medardo/Dre quezada/Reindl 12/19/2020 01:00:00 PM EDT [facility]ENT ([facility]) Outpatient [address] [facility] [place] [address] 12/18/2020 12:00:00 AM EDT [facility]CW1 [facility] Outpatient [address] [place] [address] 05/10/2020 12:00:00 AM EDT eCW1 [facility] [address] [place] [address] 05/09/2020 12:00:00 AM EDT eCW1 ([facility]) Immunizations Vaccine Date Status Description Data Source(s) pneumococcal polysaccharide PPV23 05/03/2021 04:37:00 PM EDT comple sarthak eCW1 ([facility]) pneumococcal polysaccharide PPV23 05/03/2021 04:37:00 PM EDT comple sarthak eCW1 ([facility]) pneumococcal polysaccharide PPV23 05/03/2021 04:37:00 PM EDT comple sarthak eCW1 ([facility]) pneumococcal polysaccharide PPV23 05/03/2021 04:37:00 PM EDT comple sarthak eCW1 ([facility]) pneumococcal polysaccharide PPV23 05/03/2021 04:37:00 PM EDT comple sarthak eCW1 ([facility]) pneumococcal polysaccharide PPV23 05/03/2021 04:37:00 PM EDT comple sarthak eCW1 ([facility]) pneumococcal polysaccharide PPV23 05/03/2021 04:37:00 PM EDT comple sarthak eCW1 ([facility]) pneumococcal polysaccharide PPV23 05/03/2021 04:37:00 PM EDT comple sarthak eCW1 ([facility]) pneumococcal polysaccharide PPV23 05/03/2021 04:37:00 PM EDT comple sarthak eCW1 ([facility]) pneumococcal polysaccharide PPV23 05/03/2021 04:37:00 PM EDT comple sarthak eCW1 ([facility]) COVID Vaccine 2nd Dose (Pfizer) 12/28/2020 08:47:00 AM EDT complete d eCW1 ([facility]) COVID Vaccine 2nd Dose (Pfizer) 12/28/2020 08:47:00 AM EDT complete d eCW1 ([facility]) COVID Vaccine 2nd Dose (Pfizer) 12/28/2020 08:47:00 AM EDT complete d eCW1 ([facility]) COVID Vaccine 2nd Dose (Pfizer) 12/28/2020 08:47:00 AM EDT complete d eCW1 ([facility]) COVID-19 VACCINE Pfizer 12/28/2020 12:00:00 AM EDT completed [facility] Vaccine Series Complete: YESThis Data wa s Submitted to [facility] Via [employer]. COVID-19 VACCINE Pfizer 12/07/2020 12:00:00 AM EDT completed [facility] Vaccine Series Complete: NOThis Data was Submitted to [facility] Via [employer]. COVID Vaccine 1st Dose (Pfizer) 11/30/2020 08:47:00 AM EDT complete d eCW1 ([facility]) COVID Vaccine 1st Dose (Pfizer) 11/30/2020 08:47:00 AM EDT complete d eCW1 ([facility]) COVID Vaccine 1st Dose (Pfizer) 11/30/2020 08:47:00 AM EDT complete d eCW1 ([facility]) COVID Vaccine 1st Dose (Pfizer) 11/30/2020 08:47:00 AM EDT complete d eCW1 ([facility]) Medications Medication Brand Name Start Date Product Form Dose Route Admi nistrative Instructions Pharmacy Instructions Status Indications Reaction Description Data Source(s) [id number] 03/06/2021 12:00:00 AM EDT Suspension 240 TAKE 2 TEASPOONFULS (10 ML) BY MOUTH FOUR TIMES A DAY NEEDED FOR ESOPHAGITIS TAKE 2 TEASPOONFULS (10 ML) BY MOUTH FOUR TIMES A DAY NEEDED FOR ESOPHAGITIS SOLD: 03/06/2021 [facility] 5 mg/5 mL 03/06/2021 12:00:00 AM EDT solution 210 TAKE 1 TEASPOONFUL (5 ML) BY MOUTH EVERY 4 HOURS NEEDED FOR ESOPHAGITIS, MAXIMUM DAILY DOSE = 6 TEASPOONFULS (30 ML) TAKE 1 TEASPOONFUL (5 ML) BY MOUTH EVERY 4 HOURS NEEDED FOR ESOPHAGITIS, MAXIMUM DAILY DOSE = 6 TEASPOONFULS (30 ML) SOLD: 03/06/2021 [facility] Levofloxacin 500 MG Oral Tablet Levaquin 500 MG Levaquin 500 MG 02/28/2021 12:00:00 AM EDT 1.0 {tablet} active Le vaquin 500 MG eCW1 ([facility]) Levofloxacin 500 MG Oral Tablet Levaquin 500 MG Levaquin 500 MG 02/28/2021 12:00:00 AM EDT 1.0 {tablet} active Le vaquin 500 MG eCW1 ([facility]) Levofloxacin 500 MG Oral Tablet Levaquin 500 MG Levaquin 500 MG 02/28/2021 12:00:00 AM EDT 1.0 {tablet} active Le vaquin 500 MG eCW1 ([facility]) 0.4 ML Enoxaparin sodium 100 MG/ML Prefi lled Syringe Enoxaparin Sodium 40 MG/0.4ML Subcutaneous Solution (LOVENOX) Enoxaparin Sodium 40 MG/0.4ML Subcutaneous Solution (LOVENOX) 01/31/2021 12:00:00 AM EDT 40 mg Subcutaneous active Inject 0.4 mLs into the s kin daily for [address] [facility] oxyCODONE (ROXICODONE) 5 MG/5ML solution 2.5 mg 2020 02:58:56 PM EDT 2.5 mg Oral active [Order 1 S tart] Name: oxyCODONE (ROXICODONE) 5 MG/5ML solution 2.5 mg Signed Summary: 2.5 mg, Oral, Every 4 hours PRN, Moderate Pain (Pain Scale Score 4-6), not relieved by non-narcotic, Starting on Fri01/29/21 at 1458, For 72 hours [Order 1 End] [Order 2 Start] Name: oxyCODONE (ROXICODONE) 5 MG/5ML solution 5 mg Signed Summary: 5 mg, Oral, Every 4 hours PRN, Severe Pain (Pain Scale Score 7-10), not relieved by non-narcotic, Starting on 01/29/21 at 1458, For 72 hours [Order 2 End] [facility] Medication administered onsite Docusate Sodium 10 MG/ML Oral Suspension docusate (COLACE) 50 MG/5ML liquid 100 mg docusate (COLACE) 50 MG/5ML liquid 100 mg 01/28/2021 09:00:00 AM EDT 100 mg Per G Tube active 100 mg, P er G Tube, 2 Times Daily, First dose on 01/28/21 at 0900, For [address] [facility] Medication administered onsite Lactulose 667 MG/ML Oral Solution lactulose (CHRONULAC ) solution 30 mL lactulose (CHRONULAC) solution 30 mL 01/28/2021 09:00:00 AM EDT 30 mL Per J Tube aborted 30 mL, Per J Tube, T hree Times Daily Standard, First dose on 01/28/21 at 0900, For [address] [facility] Medication administered onsite Docusate Sodium 100 MG Oral Capsule docusate sodium (C OLACE) capsule 100 mg docusate sodium (COLACE) capsule 100 mg 01/28/2021 09:00:00 AM EDT 100 mg Oral aborted 100 mg, Oral, 2 Times Daily, First dose on 01/28/21 at 0900, For [address] [facility] Medication administered onsite Acetaminophen 32 MG/ML Oral Solution deandre taminophen (TYLENOL) 160 MG/5ML solution (ADULT) 650 mg acetaminophen (TYLENOL) 160 MG/5ML solution (ADULT) 65 0 mg 01/27/2021 07:49:00 PM EDT 650 mg Per G Tube active 650 mg, Per G Tube, Every 6 hours PRN, Mild Pain (Pain Scale Score 1-3), Headaches, Fever, Starting on 01/27/21 at 1949, For 720 hours
Maximum daily dose of acetaminophen is 3,000 mg from all sources in [address]
[facility] Medication administered onsite sodium chloride (preservative free) 0.9 % flush 3 mL 01/27/2021 05:00:00 PM EDT 3 mL Intravenous active [Ord er 1 Start] Name: Peripheral IV Signed Summary: Routine, CONTINUOUS, Starting on 01/27/21 at 1333, Until 02/26/21, For 30 days [Order 1 End] [Order 2 Start] Name: sodium chloride (preservative free) 0.9 % flush 3 mL Signed Summary: 3 mL, Intravenous, Every 8 hours Standard (3 times per day), First dose on 01/27/21 at 1700, For 30 days
Saline Lock. Flush Q8H and after each use to Saline Lock.
[Order 2 End] [Order 3 Start] Name: sodium chloride (preservative free) 0.9 % flush 3 mL Signed Summary: 3 mL, Intravenous, PRN, Line Care, Starting on 01/27/21 at 1332, For 30 days
Saline Lock. Flush Q8H and after each use to Saline Lock.
[Order 3 End] [Order 4 Start] Name: Saline Lock order Signed Summary: Routine, ONCE, On 01/27/21 at 1333, For 1 occurrence [Order 4 End] [facility] Medication administered onsite sodium chloride 0.9 % bag 3-20 mL [id number] 01/27/2021 01:32:39 PM EDT mL Intravenous active 3-20 mL, Intr avenous, at 1-999 mL/hr, PRN, For Medication Administration and Line Clearance, Starting on 01/27/21 at 1332, For 30 days
Flush line with sufficient amount of fluid needed based on food clerk recommendation for specific line size. Rate should be run at the same rate as medication in the line being flushed.
[facility] Medication administered onsite 0.4 ML Enoxaparin sodium 100 MG/ML Prefi lled Syringe enoxaparin sodium (LOVENOX) injection 40 mg enoxaparin sodium (LOVENOX) injection 40 mg 01/27/2021 09:00:00 AM EDT 40 mg Subcutaneous active 40 mg, Subcutaneous, Daily Standard, First dose on 01/27/21 at 0900, For 30 days
Non Patients: body weight < 150 kg, CrCl > 30 mL/min. Guidelines for Lovenox: MUST wait 24 hours before starting Enoxaparin if patient has epidural catheter. D/C Enoxaparin 10-12 hours prior to removing epidural catheter.
[facility] Medication administered onsite Aspirin 81 MG Chewable Tablet aspirin chewable tablet 81 mg aspirin chewable tablet 81 mg 01/27/2021 09:00:00 AM EDT 81 mg Per G Tube a ctive 81 mg, Per G Tube, Daily Standard, First dose on 01/27/21 at 0900, For [address] [facility] Medication administered onsite Acetaminophen 10 MG/ML Injectable Soluti on acetaminophen (OFIRMEV) infusion 1,000 mg acetaminophen (OFIRMEV) infusion 1,000 mg 01/27/2021 02:30:00 AM EDT 1000 mg Intravenous aborted 1,000 mg , Intravenous, Administer over 15 Minutes, Every 8 hours, First dose on 01/27/21 at 0230, For 1 day
Maximum daily dose of acetaminophen from all sources 3,[address]
[facility] Medication administered onsite Cefazolin 2000 MG Injection ceFAZolin (ANCEF) IVPB 2 g in dextrose (premix) ceFAZolin (ANCEF) IVPB 2 g in dextrose (premix) 01/26/2021 10:30:00 PM EDT 2 g Intravenous completed 2 g, Int ravenous, Administer over 30 Minutes, Every 8 hours, First dose on Fri01/26/21 at 2230, For 16 hours
3 gram for patients weighing >/= to [address]
[facility] Medication administered onsite hypromellose 25 MG/ML Ophthalmic Solutio n hydroxypropyl methylcellulose (GONIOSOL) 2.5 % ophthalmic solution 1 drop hydroxypropyl methylcellulose (GONIOSOL) 2.5 % ophthalmic solution 1 drop 01/26/2021 08:34:07 PM EDT 1 [drp] Both Eyes active 1 drop, Francisco J th Eyes, PRN, Dry Eyes, Starting on Fri01/26/21 at 2034, For [address] [facility] Medication administered onsite ondansetron (ZOFRAN) injection 4 mg [id number] 01/26/2021 07:02:0 5 PM EDT 4 mg Intravenous active 4 mg, In travenous, Every 8 hours PRN, Nausea, Vomiting, Starting on Fri01/26/21 at 1902, For [address] [facility] Medication administered onsite Calcium Chloride 0.0014 MEQ/ML / Potassi um Chloride 0.004 MEQ/ML / Sodium Chloride 0.103 MEQ/ML / Sodium Lactate 0.028 MEQ/ML Injectable Solution lactated ringers infusion lactated ringers infusion 01/26/2021 06:15:00 PM EDT 100 mL/h Intravenous aborted at 100 m L/hr, Intravenous, Continuous, Starting on Fri01/26/21 at 1815, For [address] [facility] Medication administered onsite Acetaminophen 10 MG/ML Injectable Soluti on acetaminophen (OFIRMEV) infusion 1,000 mg acetaminophen (OFIRMEV) infusion 1,000 mg 01/26/2021 06:15:00 PM EDT 1000 mg Intravenous completed 1,000 mg , Intravenous, Once, On Fri01/26/21 at 1815, For 1 dose
If NPO and has not yet received an acetaminophen product in prior [address] [facility] Medication administered onsite Acetaminophen 325 MG / Hydrocodone Bitartrate 5 MG Ora l Tablet Hydrocodone-Acetaminophen 01/25/2021 12:00:00 AM EDT ORAL active [facility] ([facility], ) Clenpiq Clenpiq 12/20/2020 12:00:00 AM EDT complet ed MED[facility] ([facility] ) Bisacodyl 5 MG Delayed Release Oral Tablet [Dulcolax] Dulcol ax 12/20/2020 12:00:00 AM EDT completed [facility] ([facility], ) Insurance Providers Payer name Policy type / Coverage type Policy ID Covered libertarian ID Covered libertarian's relationship to fry Policy Fry Plan Information MEDICAID [id number] S [id number] [facility] [id number] S [id number] MEDICARE [id number] S [id number] MEDICARE [id number] S [id number] A [facility] [id number] S [id number] Medicare [place] Primary [id number] Self [id number] MEDICARE A [id number] Self [id number] [id number] Medicaid [facility] Part B [id number] Self [id number] MEDICARE [id number] Other [id number] A MEDICAID [id number] Other [id number] SELF-PAY UNAVAILABLE UNAVAILA BLE MEDICAID [id number] S [id number] [place] MED[place] [id number] SP [id number] MEDICAID [id number] SP [id number] MEDICAID [id number] S [id number] SELF PAY O [id number] S [id number] ANSI-Medicaid [id number] ANSI-Medicare Part B [id number] ANSI-Medicare Part B [id number] ANSI-Medicaid [id number] MEDICAID [id number] S [id number] MEDICARE [id number] S [id number] A MEDICARE [id number] S [id number] A MCRB [id number] S [id number] A MCRB [id number] S [id number] A PALEST[place]IAN PROGR[employer] MC [id number] S [id number] PALESTINIAN PROGRESSIVE [id number] S [id number] PALESTINIAN PROGRESSIVE MC [id number] S [id number] CHA CARE [id number] S [id number] CHA CARE [id number] S [id number] CHA CARE [id number] S [id number] MEDICAID [id number] S [id number] PALESTINIAN PROGRESSIVE MC [id number] S [id number] MEDICARE [id number] S [id number] A MEDICAID [id number] S [id number] SELF PAY ONLY [id number] SP [id number] SELF-PAY [id number] S [id number] MEDICARE [id number] S [id number] Q82 MEDICARE [id number] SP [id number] Q82 SELF-PAY UNAVAILABLE S UNAVAILA BLE SELF PAY ONLY [id number] SP [id number] MEDICARE [id number] SP [id number] Q82 SELF PAY ONLY [id number] SP [id number] MEDICARE [id number] Other [id number] [id number] Problems, Conditions, and Diagnoses Code Display Name Description Problem Type Effective Dates Data Source(s) 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 Esophageal mass Esophageal mass Diagnosis 01/26/2021 10:1 6:[address] [facility] K22.8 Other specified diseases of esophagus OT HER SPECIFIED DISEASES OF ESOPHAGUS Diagnosis 01/18/2021 10:14:00 AM EDT [facility] Z01.818 Encounter for other preprocedural examin ation ENCOUNTER FOR OTHER PREPROCEDURAL EXAMINATION Diagnosis 01/18/2021 10:14:00 AM EDT [facility] K63.89 Other specified diseases of intestine Ot her specified diseases of intestine Diagnosis 01/01/2021 08:55:00 AM EDT [facility] Z01.818 Pre-procedure evaluation check Preop testing Problem 05/29/2021 12:00:00 AM EDT eCW1 ([facility]) N39.0 Urinary tract infectious disease UTI (urinary tract in fection) Problem 05/29/2021 12:00:00 AM EDT eCW1 ([facility]) 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 Problem 05/29/2021 12 :00:00 AM EDT eCW1 ([facility]) I71.4 [id number] Abdominal aortic aneurysm (AAA) without r upture Problem 05/03/2021 12:00:00 AM EDT eCW1 ([facility]) N32.89 [id number] Bladder mass Problem 05/03/2021 12:00:00 AM EDT eCW1 ([facility]) R91.1 [id number] Pulmonary nodule Problem 05/03/2021 12:00:00 AM EDT eCW1 ([facility]) L97.912 [id number] 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 layer exposed Problem 02/09/2021 12:00:00 AM EDT eCW1 ([facility]) N32.89 [id number] Bladder mass Problem 12/20/2020 12:00:00 AM EDT eCW1 ([facility]) K22.8 [id number] Esophageal mass Problem 12/20/2020 12:00:00 AM EDT eCW1 ([facility]) R63.4 [id number] Weight loss Problem 12/20/2020 12:00:00 AM E DT eCW1 ([facility]) I71.4 [id number] Abdominal aortic aneurysm (AAA) without r upture Problem 12/20/2020 12:00:00 AM EDT eCW1 ([facility]) Surgeries/Procedures Procedure Description Date Indications Data Source(s) FINE NEEDLE ASPIRATION W/O IMAGING GUIDANCE 06/12/2021 12:00:00 AM EDT eCW1 ([facility]) Med: Lidocaine Jelly 2% 6ml Intravesically (Glydo) 05/21/2021 12:00:00 AM EDT eCW1 ([facility]) FINE NEEDLE ASPIRATION W/O IMAGING GUIDANCE 04/26/2021 12:00:00 AM EDT eCW1 ([facility]) FINE NEEDLE ASPIRATION W/O IMAGING GUIDANCE 04/05/2021 12:00:00 AM EDT eCW1 ([facility]) FINE NEEDLE ASPIRATION W/O IMAGING GUIDANCE 03/29/2021 12:00:00 AM EDT eCW1 ([facility]) FINE NEEDLE ASPIRATION W/O IMAGING GUIDANCE 03/22/2021 12:00:00 AM EDT eCW1 ([facility]) FINE NEEDLE ASPIRATION W/O IMAGING GUIDANCE 03/15/2021 12:00:00 AM EDT eCW1 ([facility]) FINE NEEDLE ASPIRATION W/O IMAGING GUIDANCE 03/08/2021 12:00:00 AM EDT eCW1 ([facility]) FINE NEEDLE ASPIRATION W/O IMAGING GUIDANCE 02/28/2021 12:00:00 AM EDT eCW1 ([facility]) FINE NEEDLE ASPIRATION W/O IMAGING GUIDANCE 02/23/2021 12:00:00 AM EDT eCW1 ([facility]) FINE NEEDLE ASPIRATION W/O IMAGING GUIDANCE 02/16/2021 12:00:00 AM EDT eCW1 ([facility]) BLOOD COUNT COMPLETE AUTO&AUTO DIFRNTL WBC COUNT <td>C BC AND DIFFERENTIAL</td><td>Routine</td><td>01/30/2021 5:21 AM EDT</td><td></td><td> </td> 01/30/2021 05:21:00 AM [facility] PHOSPHORUS INORGANIC <td>PHOSPHORUS LEVEL</td><td >Routine</td><td>01/30/2021 5:21 AM EDT</td><td></td><td> </td> 01/30/2021 05:21:00 AM [facility] MAGNESIUM <td>MAGNESIUM LEVEL</td><td> Routine</td><td>01/30/2021 5:21 AM EDT</td><td></td><td> </td> 01/30/2021 05:21:00 AM [facility] BASIC METABOLIC PANEL CALCIUM TOTAL <td>BASIC METABOLI C PANEL</td><td>Routine</td><td>01/30/2021 5:21 AM EDT</td><td></td><td> </td> 01/30/2021 05:21:00 AM [facility] BLOOD COUNT COMPLETE AUTO&AUTO DIFRNTL WBC COUNT <td>C BC AND DIFFERENTIAL</td><td>Routine</td><td>01/29/2021 3:56 AM EDT</td><td></td><td> </td> 01/29/2021 03:56:00 AM [facility] PHOSPHORUS INORGANIC <td>PHOSPHORUS LEVEL</td><td >Routine</td><td>01/29/2021 3:56 AM EDT</td><td></td><td> </td> 01/29/2021 03:56:00 AM [facility] MAGNESIUM <td>MAGNESIUM LEVEL</td><td> Routine</td><td>01/29/2021 3:56 AM EDT</td><td></td><td> </td> 01/29/2021 03:56:00 AM [facility] BASIC METABOLIC PANEL CALCIUM TOTAL <td>BASIC METABOLI C PANEL</td><td>Routine</td><td>01/29/2021 3:56 AM EDT</td><td></td><td> </td> 01/29/2021 03:56:00 AM [facility] BLOOD COUNT COMPLETE AUTO&AUTO DIFRNTL WBC COUNT <td>C BC AND DIFFERENTIAL</td><td>Routine</td><td>01/28/2021 2:11 AM EDT</td><td></td><td> </td> 01/28/2021 02:11:00 AM [facility] PHOSPHORUS INORGANIC <td>PHOSPHORUS LEVEL</td><td >Routine</td><td>01/28/2021 2:11 AM EDT</td><td></td><td> </td> 01/28/2021 02:11:00 AM [facility] MAGNESIUM <td>MAGNESIUM LEVEL</td><td> Routine</td><td>01/28/2021 2:11 AM EDT</td><td></td><td> </td> 01/28/2021 02:11:00 AM [facility] BASIC METABOLIC PANEL CALCIUM TOTAL <td>BASIC METABOLI C PANEL</td><td>Routine</td><td>01/28/2021 2:11 AM EDT</td><td></td><td> </td> 01/28/2021 02:11:00 AM [facility] IAAD EIA HIV-1 AG W/HIV-1&HIV-2 ANTBDY SINGLE <td>HIV AG AB COMBO SCREEN</td><td>Routine</td><td>01/27/2021 4:35 AM EDT</td><td></td><td> </td> 01/27/2021 04:35:00 AM [facility] HEPATITIS C ANTIBODY <td>HEPATITIS C ANTIBODY</td ><td>Routine</td><td>01/27/2021 4:35 AM EDT</td><td></td><td> </td> 01/27/2021 04:35:00 AM [facility] BLOOD COUNT COMPLETE AUTO&AUTO DIFRNTL WBC COUNT <td>C BC AND DIFFERENTIAL</td><td>Routine</td><td>01/27/2021 4:35 AM EDT</td><td></td><td> </td> 01/27/2021 04:35:00 AM [facility] PHOSPHORUS INORGANIC <td>PHOSPHORUS LEVEL</td><td >Routine</td><td>01/27/2021 4:35 AM EDT</td><td></td><td> </td> 01/27/2021 04:35:00 AM [facility] MAGNESIUM <td>MAGNESIUM LEVEL</td><td> Routine</td><td>01/27/2021 4:35 AM EDT</td><td></td><td> </td> 01/27/2021 04:35:00 AM [facility] BASIC METABOLIC PANEL CALCIUM TOTAL <td>BASIC METABOLI C PANEL</td><td>Routine</td><td>01/27/2021 4:35 AM EDT</td><td></td><td> </td> 01/27/2021 04:35:00 AM [facility] XR CHEST FRONTAL ONLY [id number] <td>XR CHEST FRONTAL ONLY 06208</td><td>STAT</td><td>01/26/2021 8:57 PM EDT</td><td></td><td> </td> 01/26/2021 08:57:00 PM [facility] FLUORO CENTRAL VENOUS ACCESS DEV PLACEMENT <td>FLUORO GUID VENOUS ACC PROC 46982</td><td>Routine</td><td>01/26/2021 3:20 PM EDT</td><td> Diagnosis unknown</td><td> </td> 01/26/2021 03:20:[address] [facility] Diagnosis unknown REPLACEMENT OF GASTRO-JEJUNOSTOMY TUBE, PERCUTANEOUS, UNDER FLUOROSCOPIC GUIDANCE <td>REPLACEMENT OF GASTRO-JEJUNOSTOMY TU BE, PERCUTANEOUS, UNDER FLUOROSCOPIC GUIDANCE</td><td></td><td>01/26/2021 2:20 PM EDT</td><td> Esophageal mass</td><td></td> 01/26/2021 02:20:00 PM EDT - 01/26/2021 06:20:[address] [facility] Esophageal mass UPPER GI ENDOSCOPY W/INSERTION, GUIDE WIRE/DILATION OV ER GUIDE WIRE <td>UPPER GI ENDOSCOPY W/INSERTION, GUIDE WIRE/DILATION OVER GUIDE WIRE</td><td></td><td>01/26/2021 2:20 PM EDT</td><td> Esophageal mass</td><td></td> 01/26/2021 02:20:00 PM EDT - 01/26/2021 06:20:[address] [facility] Esophageal mass Endoscopy Upper GI Biopsy 12/26/2020 12:00:00 AM EDT [facility] ([facility], ) Colonoscopy Flexible Proximal To Splenic Flexure Diagnostic W/Or 12/26/2020 12:00:00 AM EDT [facility] Results ID Date Data Source [id number] 06/26/2021 06:37:00 PM EDT Robin Tyrese cordoba FAX TO FAHAD [facility]ILLA [phone] Name Value Range Interpretation Code Description Data Macie rce(s) Supporting Document(s) COVID19 RHEONIX Negative NEGATIVE N Robin [facility] al The Rheonix COVID-19 MDx Assay is an end point RT-PCR assayintended for the qualitative detection of nucleic acid [id number] virus. Positive results are indicative of thepresence of SARS-CoV-2 RNA; clinical correlation withpatient history and other diagnostic information isnecessary to determine patient infection status. Negativeresults do not preclude SARS-CoV-2 infection and should notbe used as the sole basis for patient management decisions. The Rheonix MDx Assay is only for use under the Food andDrug Administration's Emergency Use Authorization. ID Date Data Source [id number] 06/20/2021 10:20:00 AM EDT Charlotte Tyrese cordoba Exam Number: [id number] OF EXAMINATIO N: 06/20/2021 8:24 EDTPET/CT HEAD TO MID THIGHCOMPARED TO:01/24/2021HISTORY: Esophageal cancer restagingTECHNIQUE: Following intravenous injection of 9.6 to mCi of FDG, atotal body PET scan was performed from the base of the of the skull tothe upper thighs. Prior to the PET scan, transmission CT wasperformed. Fusion images were created from the source data.Attenuation correction was applied.FINDINGS:Previously noted area of thickening with abnormal uptake in thegastric cardia extending into the proximal gastric body mainlyposteriorly has improved in extent. The SUVs have decreased from priorvalue of 7.6 to current mean SUV of 3.2 to. The lesion does not extendas inferiorly and deep into the gastric mucosa as previously.Previously noted gastrohepatic and celiac axis nodes havesubstantially decreased in size but not number. The uptake is alsosubstantially decreased from prior study of 2.2 on the prior study toa current mean SUV of 1.5 today's exam. There is no evidence for anydefinite abnormal solid organ uptake.Appropriate renal and bladder activity seen.Patient does have a G-tube in place with a focus of abnormal uptakewith a mean SUV of 5 in the left upper quadrant anterior abdominalwall. This is likely inflammatory. This in conjunction with an area ofincreased uptake in the costochondral junction of one of the leftlower ribs anteromedially which reveals a mean SUV of 2.8 should befollowed to resolution. The latter is most likely secondary tocostochondritis.IMPRESSION:Significant interval decrease in extent size and uptake of activity ofgastric cardia abnormal uptake/mass. Regional nodes have almostcompletely resolved as described above.Focus of increased uptake involving the costochondral junction of oneof the left sided ribs as well as soft tissue uptake at the G-tubeentry site in the left upper quadrant anterior abdominal wall are bothlikely inflammatory but should be followed to resolution.Thank you for allowing us to participate in the care of your patient.I would be glad to review the images with you and answer any questionsthat you may have.Electronically signed in PS360 by: Negin Florence M.D. 110:07 EDT Reported By: Wero FLORENCE M.D. Signed By: Delia FLORENCE M.D. Name Value Range Interpretation Code Description Data Macie rce(s) Supporting Document(s) ID Date Data Source [id number] 04/18/2021 08:44:00 PM EDT [facility] Name Value Range Interpretation Code Description Data Macie rce(s) Supporting Document(s) SARS coronavirus 2 RNA [Presence] in Res piratory specimen by RAN with probe detection NEGATIVE [facility] This lab was ordered by [facility] a nd reported by [facility]. ID Date Data Source [id number] 02/02/2021 11:14:00 AM EDT [facility] Exam Number: [id number] Reported By: Wero BAHENA M.D. Signed By: Gregory BAHENA M.D. Name Value Range Interpretation Code Description Data Macie rce(s) Supporting Document(s) ID Date Data Source [id number] 01/31/2021 05:40:12 PM EDT [facility] Name Value Range Interpretation Code Description Data Macie rce(s) Supporting Document(s) Discharge Summary [facility] [id number] lbm [file] sywwVQ6QU8Zm3oyh4JZEXqpS5elmmgLL9I1Qn/G/Meléndez [file] AgICAgICAgICAgICAgICAgICAgICAgICAgICAgICAg ICAgICAgICAgICAgICAgICAgICAgICAgICAgICAgICAgICAgICAgICAgICAgICAgICAgICAgICAgICAg DQogICAgICAgICAgICAgICAgICAgICAgICAgICAgICAgICAgICAgICAgICAgICAgICAgICAgICAgICAg ICAgICAgICAgICAgICAgICAgICAgICAgICAgICAgIC AgICAgICAgICAgDQogICAgICAgICAgICAgICAgICAgICAgICAgICAgICAgICAgICAgICAgICAgICAgIC AgICAgICAgICAgICAgICAgICAgICAgICAgICAgICAgICAgICAgICAgICAgICAgICAgICAgDQogICAgIC AgICAgICAgICAgICAgICAgICAgICAgICAgICAgICAg ICAgICAgICAgICAgICAgICAgICAgICAgICAgICAgICAgICAgICAgICAgICAgICAgICAgICAgICAgICAg ICAgDQogICAgICAgICAgICAgICAgICAgICAgICAgICAgICAgICAgICAgICAgICAgICAgICAgICAgICAg ICAgICAgICAgICAgICAgICAgICAgICAgICAgICAgIC AgICAgICAgICAgICAgDQogICAgICAgICAgICAgICAgICAgICAgICAgICAgICAgICAgICAgICAgICAgIC AgICAgICAgICAgICAgICAgICAgICAgICAgICAgICAgICAgICAgICAgICAgICAgICAgICAgICAgDQogIC AgICAgICAgICAgICAgICAgICAgICAgICAgICAgICAg ICAgICAgICAgICAgICAgICAgICAgICAgICAgICAgICAgICAgICAgICAgICAgICAgICAgICAgICAgICAg ICAgICAgDQogICAgICAgICAgICAgICAgICAgICAgICAgICAgICAgICAgICAgICAgICAgICAgICAgICAg ICAgICAgICAgICAgICAgICAgICAgICAgICAgICAgIC AgICAgICAgICAgICAgICAgDQogICAgICAgICAgICAgICAgICAgICAgICAgICAgICAgICAgICAgICAgIC AgICAgICAgICAgICAgICAgICAgICAgICAgICAgICAgICAgICAgICAgICAgICAgICAgICAgICAgICAgDQ ogICAgICAgICAgICAgICAgICAgICAgICAgICAgICAg ICAgICAgICAgICAgICAgICAgICAgICAgICAgICAgICAgICAgICAgICAgICAgICAgICAgICAgICAgICAg TICfIYYeLQLhWUa0O3cvQWTiZAZrYI3vXZi7Hp8+VZaAXvIbREQ9geSfoV0JGV0xw6YiAGbfYYMlk2Ro RZp3JB3FFVTsACpyKN5LPYkyje1HPHQrMFBdqGFSu9 pmOrVhHNG8PRNlNvbsAE5WMZKxY9vikrTlRBRpMFSEUIzxLEXVQJtyAGLLAZ0ICtHtR9RgfU51TBNHWx 4+ITpikwKqGkqRAdQlIIOpv1IsYAf5FF2YLERhInwzw1VpIqXuPZGOAPsiKP0VWDV8INRtSMCdVs6PXR ZjS336lpEeKA7SQy5OGzXqNW7ekx2BPjTtJMPrVpmT Xxs7CEylQU4FvJBwCCaOmOAqdTQlT5BiO4LvlRZzeMExwAOFWNQdtNUMVSr2gkIySF6NVAG9QRYsDE8q BYYjFDDgOtV0NFPYGX4NYSGbERGzeKToZEHrASOYTK8UCVdxVER3RBHgfoSdoAHoTWqaSZ9EIQEtzdXy MzEgMCBSDQo+Sw9EMM0bi9WaYXbmDwQjPT1rmf1LFG gXHaRpP1G9dASuF6O6CRgtHv3NQCSrBRVhGzraSBJWPRiiIC9BCI7gxgD0PE5MeCOfXPLlNJItdOZbIL q5Z33unJUiJJxgFU2HLUM+Robert+Ha1CYPGlJOJcSRZyLxPxXJNUDgNuE9NtR9XLc1KqS5HdJV53oFzrbv UpULpvPD0AVI7xCUMoNVOOMR5TiSDhbS5yorUaHDSy HMRDFmQdA73yqASzHAZpOJRfXTHoIa2SFBOgY1AcpzUjbSbhtcGkMIWcMINVLZ7GVEtfbpXgyPNoqOzb XQ61oLusWT2GIb9GEyGqLL0jks4BxYEnXp6HRULvJZ0JKJTuHGJpFCGhBLC5TGNzBiDtZTnrNQHrBMQs JTN2YTPxTCSfDM6VUiXhJRYcBfIjCErgLBLcVYZwij 9BTWOxOUHySdH3RKBgUHLnCZCpOZtkGMVjKWCoXQN5LAYbGUEdOY3NKlMeWBZaWSCkRfSoYDOwNRGzod 0YTQHuRYUoRyBkTmBvMPGiCBHiIHziKZPxWDW3DBy9AJXpBBVnBP1EAiRvFJChULsaTVUxYUYoOPTnyn 1JNDLaZHLpJUR4ZVCdECBsFWJfDAewAMBhOXI5AaW1 OKIvZGGpES0TMeCsSWGkCAGcFhsnOCTvBVMwgo7FSVOcEFOqQQWpUEThNCVwQVOrNNavUUWeKEZiHaR9 MHPgOCEoEA1CWqAzJBVtEBJ3RzcbWCSrQICiky9PFZZyVLZhJGs7WJToZRNdBYKdTDicUYTfLALpBCZ0 BWSzRUBdIG7GBsFoBWMzOPY6GGrnCFHlPFKlak9JNC VoMUScLtZnPWSqTJSuCYRrLYwwFPPnVXBeArb7ZNGhHELpYW8QVcSgQSKjFkC9XTJzJELrARAikr3RDA CwGMQdLSIaJHWiDDHsCJGkIYfsZCDbPDM2KtL0DUWvUBOdDN0ZZoEqQOOpDxO8KCiwTWUpBXEmml4NCP HkHKGiDFF4OLXqTPFbEKJpBAzfCTKyVFYzDYKtQEJl MDNfOA7WQvVaYOBbImZ2YrttVWDwPGSmty2QCHMcYZAkWAz2VGLeBSKfPRBiMRwjVFEuCEFpUsCeTQCw AHFdUC0KHnIlRPNmMpBpNdxmAMZxUWNfsh9DBKVrVJQgDPwbQQAjKWTqNPOlVCnqVTOsOVGqSsRsOZJh KZRoGB2FSfMpXVBgBuUeJlEyCLWdZHWuow7MSXMxIY PqCxA3QGUxJKOkTZMeTAw7ukAxkQVbJRy8RE7TT9LxqsCxKxKZQb5Cf621XPAsTDFgOp7ND3jmVt6wLC ZrVQXCYu0OBVh0UjPmWyU4YXEsOZWrVHD9RlQyDTU3GhClGgAyV3ZdVJJ+QCb3JGAwQnk2KaByQcBqQS CoRpYmDaSbZxT9HeBnAXGzDh3iCFHGHy2+SCnhoBTblFlcPUARBiMxXhF5VSdhJPQGPk9G ID Date Data Source [id number] 01/30/2021 04:01:20 PM EDT [facility] Name Value Range Interpretation Code Description Data Macie rce(s) Supporting Document(s) Progress Note [facility] PUZCDz3mAhJBDrVf35/ZJEmcKLNpu3ZeHOxeAPw3ZDqlHVHlO8ScURJ7sD5qUAO8UBmXIlVwVcNtUvSd lbm [file] UwErKuZBa4ZkV3KASfKIspRzU0DdunRJb+IF0gDQ o+Kf2Sh6JdmcY0ttDgKAcqOMVsBZ3RGWTHH8BXAy== ID Date Data Source [id number] 01/30/2021 01:03:18 PM EDT [facility] Name Value Range Interpretation Code Description Data Macie rce(s) Supporting Document(s) Consultation [facility] IHBERx0fYcVZUsGy30/QAFokUHYyi2GjRFzgTNt6LVvlARWuF3NfGRL7gX3eSQN3AZcSUePlYuYjDdFl lbm [file] ICAgICAgICAgICAgICAgICAgICAgICAgICAgICAgIC AgICAgICAgICAgICAgICAgICAgICAgICAgICAgICAgICANCiAgICAgICAgICAgICAgICAgICAgICAgIC AgICAgICAgICAgICAgICAgICAgICAgICAgICAgICAgICAgICAgICAgICAgICAgICAgICAgICAgICAgIC AgICAgICAgICAgICAgICANCiAgICAgICAgICAgICAg ICAgICAgICAgICAgICAgICAgICAgICAgICAgICAgICAgICAgICAgICAgICAgICAgICAgICAgICAgICAg ICAgICAgICAgICAgICAgICAgICAgICAgICANCiAgICAgICAgICAgICAgICAgICAgICAgICAgICAgICAg ICAgICAgICAgICAgICAgICAgICAgICAgICAgICAgIC AgICAgICAgICAgICAgICAgICAgICAgICAgICAgICAgICAgICANCiAgICAgICAgICAgICAgICAgICAgIC AgICAgICAgICAgICAgICAgICAgICAgICAgICAgICAgICAgICAgICAgICAgICAgICAgICAgICAgICAgIC AgICAgICAgICAgICAgICAgICANCiAgICAgICAgICAg ICAgICAgICAgICAgICAgICAgICAgICAgICAgICAgICAgICAgICAgICAgICAgICAgICAgICAgICAgICAg ICAgICAgICAgICAgICAgICAgICAgICAgICAgICANCiAgICAgICAgICAgICAgICAgICAgICAgICAgICAg ICAgICAgICAgICAgICAgICAgICAgICAgICAgICAgIC AgICAgICAgICAgICAgICAgICAgICAgICAgICAgICAgICAgICAgICANCiAgICAgICAgICAgICAgICAgIC AgICAgICAgICAgICAgICAgICAgICAgICAgICAgICAgICAgICAgICAgICAgICAgICAgICAgICAgICAgIC AgICAgICAgICAgICAgICAgICAgICANCiAgICAgICAg ICAgICAgICAgICAgICAgICAgICAgICAgICAgICAgICAgICAgICAgICAgICAgICAgICAgICAgICAgICAg ICAgICAgICAgICAgICAgICAgICAgICAgICAgICAgICANCiAgICAgICAgICAgICAgICAgICAgICAgICAg ICAgICAgICAgICAgICAgICAgICAgICAgICAgICAgIC AgICAgICAgICAgICAgICAgICAgICAgICAgICAgICAgICAgICAgICAgICANCjw/oKDvG2wqhSNgzdM7N3 trJr7GMh8KIG9jw7WfWHLhTPgwrjHcHzgQLsYmVYSmJdnNXkj2ZVsaEH3AmEUmC7YeM7FuKNwiKZ3SHJ QgPYJjlRNcFWHiDCYoGxL1HRPdGRoxTB6TjFCvNVbm SNFzRYCwVwZwZLHfTQZyZYEqKK7UMFAtP586crIfKd8RXp2UUnJrSJ7qwd4LUhDjCRJtFmpFFud8WXvk YG1UpJCqnUSrTQUyNIVREzWlP9qni1VtZhTmOZZSRVqgWF6Ec9GfkMZmBXi+Uf5YWD3iu8EiOOhwXGVo JD7cux4CBRpHPoJlZ4QruKzqZIBfggC9wVZtPOW5YC LoAchpDYRaV3EkHQgjCgLwRMXpJx6uWcAtAtUlYLY4FPKqAH5xWOoaOZ3CHCA6FIaaMYTzGVSjT4pBIn UyRFXiIqZpoGvlDR9ITcTaH8TbtfIpqYGoOqZdECATNa1+LJjvguZeDmnXUqJ9RAQjt0NvPMf3QL9UKJ AzTWmsUO5AEEAlnO8kEMutYM8NCfZnCHGyCQHDCrPe R69jvUNqDAb3C8LbMwSdRNMiGcfqXDNnJBfrVjSoVDUvQsTnXBybLE3+ID4+IVekSH6URWqnglNgPAOo Sp2CTUIvQPVeTT1tTSXxSTCxP5G0uZozMNSRVxEvA7lvlwrbZW8bEUZjQ807mDlrhxAiFLWfTPCfKc9N LLKbRIC7NGNtgKAkAjFeWUTDMNbrWR2WfPNaEWH9gJ 0fYIyvOUJbAQMgU9cOQyIieAlhNF33mAyjglZygVXuSIs+Dq2JZZ6wa1RpSIo9fgOmDEjeHTI7WWwzCA DnWBZuQEShGAG5ZPN5QFPSRwKhPKTjABAsGHmeWMXpYJIucy7XYTLzBLIyMiL8OtJfQPQqPEYoUNlgSL CzOLF6QsrmPSOeTIAmCE7MMsPyLQVmPRKkGXsnWGYs VYElem5RCOXfACFbNnQiJXYpROYxJKVyVXwiJRKqVLTaNSYsOKOpOEXlRS9UCeHaSISuECReRLInPYPd DIGywo4FATMpVMQaTeT3DLFmSLGoGUYaXLpnFXSrJLX4GKSmXANrCVZoKW6TVeJoKAJiTDzzQEJsGEIm PDJzmh2GTZTsDQBhCOHjAVXqWRAzCUNeYQyjHNPmBB J2TxIrKQDhGBIxGU1TBpWwRCXyIRezGWUyFUTcJIAveo5KQKEaUQMvSOP3PrNxXWZgFHUhFQfbJWRcXA OhZHZ8LLXfLVLgFO7QBbFiBSJqXBE4LVLhUTRqSBBhkb4GBFQsVDSjBrMfWKJuFGIdSFRkPDpeIQIkOP MzXYF3QMGpIDRiKU0MWtBxBHAnBcT4OOTxMXDgTFQg ug4FQGXeYCNlRbs1KUCwNDRtATFjYYetYGFdQZFwUPXgISTcKCCsDU7RHiIjQAXsQgX3DEDlITZpVEVo ps8OBKSxTNHcAHu9DTQrHPObXEDlSVumDOLcWFN8OBSgHGAkAXGiDE8IEgAdCJWfNhYhGYYwWHBeQUXc jq8GtJVruXffwz3JQDyAJc2DfJnxVAP4AKgoFg7adY GjNYDoRXRVFp1DmgIpIGRmXXSQNBocSAAlAIWiCFI9FDP2BpPeIzI8EIYoOJT0RuX6GbAgEqAlOVZyEu J9EDBfRdPpFZZzXpM4VSK5DxO5RlReNpRyMKLxIRK1KFK+XY1aVSw+Hu5Pu7MxryN1vkZzRHnqFPE2Lk 6TFDQQK1CMTb== ID Date Data Source [id number] 01/30/2021 05:59:48 AM EDT [facility] Name Value Range Interpretation Code Description Data Macie rce(s) Supporting Document(s) Leukocytes [#/volume] in Blood by Automated count 7.2 10*3/uL 4-10 [facility] Erythrocytes [#/volume] in Blood by Automated count 3.47 10*6/uL 4.6- 6.[address] [facility] Hemoglobin [Mass/volume] in Blood 10.1 g/dL 13.5-[address] [facility] Hematocrit [Volume Fraction] of Blood by Automated count 30.6 % 4 1-[address] [facility] Erythrocyte mean corpuscular volume [Entitic volume] by Auto mated count 88.2 fL 80-96 [facility] Erythrocyte mean corpuscular hemoglobin [Entitic mass] by Automated count 29.2 pg 27-33 [facility] Erythrocyte mean corpuscular hemoglobin concentration [Mass/volume] by Automated count 33.1 g/dL 32.0-36.0 [facility] Erythrocyte distribution width [Ratio] by Automated count 14.3 % 11.5-14.5 [facility] Platelets [#/volume] in Blood by Automated count 293 10*3/uL 150-400 [facility] Differential cell count method - Blood [facility] Neutrophils/100 leukocytes in Blood by Automated count 65 % [facility] Lymphocytes/100 leukocytes in Blood by Automated count 23 % [facility] Monocytes/100 leukocytes in Blood by Automated count 8 % [facility] Eosinophils/100 leukocytes in Blood by Automated count 3 % [facility] Basophils/100 leukocytes in Blood by Automated count 1 % [facility] Neutrophils [#/volume] in Blood by Automated count 4.68 10*3/uL 1.8-[address] [facility] Lymphocytes [#/volume] in Blood by Automated count 1.65 10*3/uL 1.2-[address] [facility] Monocytes [#/volume] in Blood by Automated count 0.56 10*3/uL 0-0.8 [facility] Eosinophils [#/volume] in Blood by Automated count 0.23 10*3/uL 0-0.5 [facility] Basophils [#/volume] in Blood by Automated count 0.05 10*3/uL 0-0.2 [facility] Nucleated erythrocytes/100 leukocytes [Ratio] in Blood by Automated count 0 /100{WBCs} 0-0 [facility] ID Date Data Source [id number] 01/30/2021 06:10:44 AM [facility] Name Value Range Interpretation Code Description Data Macie rce(s) Supporting Document(s) Bicarbonate [Moles/volume] in Serum 26 mmol/L 22-29 [facility] Chloride [Moles/volume] in Serum or Plasma 102 mmol/L 98-107 [facility] Creatinine [Mass/volume] in Serum or Plasma 0.67 mg/dL 0.70-1.[address] [facility] Glucose [Mass/volume] in Serum or Plasma 101 mg/dL 70-140 [facility] Potassium [Moles/volume] in Serum or Plasma 4.2 mmol/L 3.4-5.1 [facility] Sodium [Moles/volume] in Serum or Plasma 133 mmol/L 136-[address] [facility] Urea nitrogen [Mass/volume] in Serum or Plasma 19 mg/dL 8-23 [facility] Anion gap 3 in Serum or Plasma 5 mmol/L 8-[address] [facility] Osmolality of Serum or Plasma by calculation 279 mosm/kg 275-300 [facility] Creatinine/Urea nitrogen [Mass Ratio] in Serum or Plasma 28 [facility] Calcium [Mass/volume] in Serum or Plasma 9.1 mg/dL 8.8-10.2 [facility] Glomerular filtration rate/1.73 sq M pre dicted among non-blacks [Volume Rate/Area] in Serum or Plasma by Creatinine-based formula (MDRD) >[address] [facility] Glomerular filtration rate/1.73 sq M pre dicted among blacks [Volume Rate/Area] in Serum or Plasma by Creatinine-based formula (MDRD) >60 [facility] ID Date Data Source [id number] 01/30/2021 06:10:44 AM [facility] Name Value Range Interpretation Code Description Data Macie rce(s) Supporting Document(s) Magnesium [Mass/volume] in Serum or Plasma 1.9 mg/dL 1.6-2.4 [facility] ID Date Data Source [id number] 01/30/2021 06:10:44 AM [facility] Name Value Range Interpretation Code Description Data Macie rce(s) Supporting Document(s) Phosphate [Mass/volume] in Serum or Plasma 3.2 mg/dL 2.5-4.5 [facility] ID Date Data Source [id number] 01/29/2021 04:20:35 AM [facility] Name Value Range Interpretation Code Description Data Macie rce(s) Supporting Document(s) Leukocytes [#/volume] in Blood by Automated count 7.2 10*3/uL 4-10 [facility] Erythrocytes [#/volume] in Blood by Automated count 3.39 10*6/uL 4.6- 6.[address] [facility] Hemoglobin [Mass/volume] in Blood 9.9 g/dL 13.5-[address] [facility] Hematocrit [Volume Fraction] of Blood by Automated count 29.7 % 4 1-[address] [facility] Erythrocyte mean corpuscular volume [Entitic volume] by Auto mated count 87.8 fL 80-96 [facility] Erythrocyte mean corpuscular hemoglobin [Entitic mass] by Automated count 29.3 pg 27-33 [facility] Erythrocyte mean corpuscular hemoglobin concentration [Mass/volume] by Automated [facility] 33.4 g[facility].0[facility] [Ratio] by Automated count 14.2 % 11.5-14.5 [facility] Platelets [#/volume] in Blood by Automated count 271 10*3/uL 150-400 [facility] Differential cell count method - Blood [facility] Neutrophils/100 leukocytes in Blood by Automated count 66 % [facility] Lymphocytes/100 leukocytes in Blood by Automated count 21 % [facility] Monocytes/100 leukocytes in Blood by Automated count 10 % [facility] Eosinophils/100 leukocytes in Blood by Automated count 2 % [facility] Basophils/100 leukocytes in Blood by Automated count 1 % [facility] Neutrophils [#/volume] in Blood by Automated count 4.87 10*3/uL 1.8-[address] [facility] Lymphocytes [#/volume] in Blood by Automated count 1.49 10*3/uL 1.2-[address] [facility] Monocytes [#/volume] in Blood by Automated count 0.69 10*3/uL 0-0.8 [facility] Eosinophils [#/volume] in Blood by Automated count 0.11 10*3/uL 0-0.5 [facility] Basophils [#/volume] in Blood by Automated count 0.07 10*3/uL 0-0.2 [facility] Nucleated erythrocytes/100 leukocytes [Ratio] in Blood by Automated count 0 /100{WBCs} 0-0 [facility] ID Date Data Source [id number] 01/29/2021 04:39:35 AM EDT [facility] Name Value Range Interpretation Code Description Data Macie rce(s) Supporting Document(s) Bicarbonate [Moles/volume] in Serum 24 mmol/L 22-29 [facility] Chloride [Moles/volume] in Serum or Plasma 100 mmol/L 98-107 [facility] Creatinine [Mass/volume] in Serum or Plasma 0.65 mg/dL 0.70-1.[address] [facility] Glucose [Mass/volume] in Serum or Plasma 102 mg/dL 70-140 [facility] Potassium [Moles/volume] in Serum or Plasma 3.9 mmol/L 3.4-5.1 [facility] Sodium [Moles/volume] in Serum or Plasma 134 mmol/L 136-[address] [facility] Urea nitrogen [Mass/volume] in Serum or Plasma 15 mg/dL 8-23 [facility] Anion gap 3 in Serum or Plasma 10 mmol/L 8-15 [facility] Osmolality of Serum or Plasma by calculation 278 mosm/kg 275-300 [facility] Creatinine/Urea nitrogen [Mass Ratio] in Serum or Plasma 23 [facility] Calcium [Mass/volume] in Serum or Plasma 8.8 mg/dL 8.8-10.2 [facility] Glomerular filtration rate/1.73 sq M pre dicted among non-blacks [Volume Rate/Area] in Serum or Plasma by Creatinine-based formula (MDRD) >[address] [facility] Glomerular filtration rate/1.73 sq M pre dicted among blacks [Volume Rate/Area] in Serum or Plasma by Creatinine-based formula (MDRD) >60 [facility] ID Date Data Source [id number] 01/29/2021 04:39:35 AM [facility] Name Value Range Interpretation Code Description Data Macie rce(s) Supporting Document(s) Phosphate [Mass/volume] in Serum or Plasma 2.7 mg/dL 2.5-4.5 [facility] ID Date Data Source [id number] 01/29/2021 04:39:35 AM [facility] Name Value Range Interpretation Code Description Data Macie rce(s) Supporting Document(s) Magnesium [Mass/volume] in Serum or Plasma 1.8 mg/dL 1.6-2.4 [facility] ID Date Data Source [id number] 01/28/2021 02:57:52 AM [facility] Name Value Range Interpretation Code Description Data Macie rce(s) Supporting Document(s) Leukocytes [#/volume] in Blood by Automated count 5.0 10*3/uL 4-10 [facility] Erythrocytes [#/volume] in Blood by Automated count 3.25 10*6/uL 4.6- 6.[address] [facility] Hemoglobin [Mass/volume] in Blood 9.5 g/dL 13.5-[address] [facility] Hematocrit [Volume Fraction] of Blood by Automated count 28.9 % 4 1-[address] [facility] Erythrocyte mean corpuscular volume [Entitic volume] by Auto mated count 89.0 fL 80-96 [facility] Erythrocyte mean corpuscular hemoglobin [Entitic mass] by Automated count 29.4 pg 27-33 [facility] Erythrocyte mean corpuscular hemoglobin concentration [Mass/volume] by Automated count 33.0 g/dL 32.0-36.[facility] distribution width [Ratio] by Automated count 14.6 % 11.5-14.[address] [facility] Platelets [#/volume] in Blood by Automated count 234 10*3/uL 150-400 [facility] Differential cell count method - Blood [facility] Neutrophils/100 leukocytes in Blood by Automated count 61 % [facility] Lymphocytes/100 leukocytes in Blood by Automated count 27 % [facility] Monocytes/100 leukocytes in Blood by Automated count 9 % [facility] Eosinophils/100 leukocytes in Blood by Automated count 2 % [facility] Basophils/100 leukocytes in Blood by Automated count 1 % [facility] Neutrophils [#/volume] in Blood by Automated count 3.10 10*3/uL 1.8-[address] [facility] Lymphocytes [#/volume] in Blood by Automated count 1.33 10*3/uL 1.2-[address] [facility] Monocytes [#/volume] in Blood by Automated count 0.43 10*3/uL 0-0.8 [facility] Eosinophils [#/volume] in Blood by Automated count 0.09 10*3/uL 0-0.5 [facility] Basophils [#/volume] in Blood by Automated count 0.03 10*3/uL 0-0.2 [facility] Nucleated erythrocytes/100 leukocytes [Ratio] in Blood by Automated count 0 /100{WBCs} 0-0 [facility] ID Date Data Source [id number] 01/28/2021 03:19:17 AM EDT [facility] Name Value Range Interpretation Code Description Data Macie rce(s) Supporting Document(s) Bicarbonate [Moles/volume] in Serum 26 mmol/L 22-29 [facility] Chloride [Moles/volume] in Serum or Plasma 103 mmol/L 98-107 [facility] Creatinine [Mass/volume] in Serum or Plasma 0.72 mg/dL 0.70-1.20 [facility] Glucose [Mass/volume] in Serum or Plasma 133 mg/dL 70-140 [facility] Potassium [Moles/volume] in Serum or Plasma 3.8 mmol/L 3.4-5.1 [facility] Sodium [Moles/volume] in Serum or Plasma 137 mmol/L 136-145 [facility] Urea nitrogen [Mass/volume] in Serum or Plasma 17 mg/dL 8-23 [facility] Anion gap 3 in Serum or Plasma 8 mmol/L 8-15 [facility] Osmolality of Serum or Plasma by calculation 287 mosm/kg 275-300 [facility] Creatinine/Urea nitrogen [Mass Ratio] in Serum or Plasma 24 [facility] Calcium [Mass/volume] in Serum or Plasma 8.3 mg/dL 8.8-10.[address] [facility] Glomerular filtration rate/1.73 sq M pre dicted among non-blacks [Volume Rate/Area] in Serum or Plasma by Creatinine-based formula (MDRD) >[address] [facility] Glomerular filtration rate/1.73 sq M pre dicted among blacks [Volume Rate/Area] in Serum or Plasma by Creatinine-based formula (MDRD) >60 [facility] ID Date Data Source [id number] 01/28/2021 03:19:17 AM EDT [facility] Name Value Range Interpretation Code Description Data Macie rce(s) Supporting Document(s) Magnesium [Mass/volume] in Serum or Plasma 1.8 mg/dL 1.6-2.4 [facility] ID Date Data Source [id number] 01/28/2021 03:19:17 AM EDT [facility] Name Value Range Interpretation Code Description Data Macie rce(s) Supporting Document(s) Phosphate [Mass/volume] in Serum or Plasma 2.7 mg/dL 2.5-4.5 [facility] ID Date Data Source [id number] 01/27/2021 10:55:41 PM EDT [facility] Name Value Range Interpretation Code Description Data Macie rce(s) Supporting Document(s) Operative Note [facility] IICSKp8oRdPRVkAs78/WLIygSOScm1AaDOaxBOv6CHkfOKKeK7ZwKOZ2cU5uMUR3XBqLKkAtPbMjVZA6 lbm IzBehCDqQaKDJdGebFDwYqZZpiPwohzGTjKG4QdSJ0BJJnA11oUMCnPKEsX1AdAXK7NMn+Yi4JJTCgtG NoED3PZgjA4M4gV3oAWn+/lvluchac4tMwVBl+3D9e3OL1G7HB6BdrmWCKPW8YHi7T5a9/WZJtuhG/ YWvNifNzEpAeS8Li2mDTMj1r/+TXksc5cXgx4//zOM HTO4NH//l7q78nez1mT/ypbID96LOIB+Qfqnaz/67D0R0tyveBP0u8DjLtlnMnTYlxrRyVZMj/cPF6P7 d+YwRg7ck2rvL8rMNmAMnf55snRtt+xxb5C2Yx5bj1TowPGlWUd9A0rWfTr2A0o+lv66fPOfGYNNm0uU +/4CabfqxOuxGzo++2c82+ULBqyapXRDLb9sM+ZUd/ 56ufkLyAjbeoSb1dwn8ku3LyfN1U59iRO5pu0WNRKodneRYvxo2/71+LWqy9ksFcv4K6sZC98+JZzP/h aO2AAVOp+aCUa+sF7/AeEfgKmO0b7M+KCU63wooxgR+b601326FH2VYaCXp+XHVQiVV6lBMrEm/0Jph5 5gcakD6IQ3A4uc9NUUBI4BPjedPgcRL7++oJTTLJl8 T5daNZ0Tc2Apb8eSdzyHVfUf07bDXP+SmE/Ds/P7/rDrV3AsDlM2tsy3qeN3Na05Fb+/wunUXO5DpFMd bB/povPRlaISKiYvCOna/pob+qmBr614/UlA3TUt3P7kQ8UvXGJB/raMna07LltHy3Oh8HOsfWDvziid ZJrYCT4b3GqUYR1s1hvVRourC69id7X5EYR9oRt/nA 37FB+QEtQJCNfqdWP30nU2GlIXsb00lv9yyir/deCD2sa1sojX9CamnDUdMGn8NddwhJQ495DT8uWa9/ 3x5DK1/NrmarY+14w3841c22Eoo5rlai864Rm0fZrRSOjrR1nLkz1ydufd0zSu5BBdWXKVIq/o9NmCqK Mandy/nDlEBlokOhwIm+0R8o6nWQg47v71Hjiq9FBnza [file] ICAgICAgICAgICAgICAgICAgICAgICAgICAgICAgICAgICAgICAgICAgICAgICAgICAgICAgICAgICAg BTNxPUOgUXIkJTDpBYWxBRBuHPBtEDWbIJIxWVUaJK7DPTNqTUCvAJDkUHCnTYSwHPKsOIPwBBYgFECy ICAgICAgICAgICAgICAgICAgICAgICAgICAgICAgIC WrMPVgHVHwTVJbXAObLPRxYDPiGXPmSLJbSAJlBICiQSPjKBWiSOQxFW4CVQItHUZwORKsRSKnXYTkOZ AgICAgICAgICAgICAgICAgICAgICAgICAgICAgICAgICAgICAgICAgICAgICAgICAgICAgICAgICAgIC HtWBGeNSLoCYCgTAEoDMUtOPOzJEXgWW8KKGTsJLXj ICAgICAgICAgICAgICAgICAgICAgICAgICAgICAgICAgICAgICAgICAgICAgICAgICAgICAgICAgICAg BDFkUUDsZHZaLSUwYZLtVNRkKIBuBRViHPGhUUYpLLMqCR9MWWSiUUJpVXZwMGWyQCNiBZMfFREmOQKo ICAgICAgICAgICAgICAgICAgICAgICAgICAgICAgIC OzZJQvATVcRAItQTChXHOwJQSxSIVoRTPnVBQfDFQyUVXoBORnWLAeWQFvWG9NZNEqKDRdVQZnLRWxBA AgICAgICAgICAgICAgICAgICAgICAgICAgICAgICAgICAgICAgICAgICAgICAgICAgICAgICAgICAgIC SjAKLlWLNaMMQhJCZbRSAwEMUhSXFmPNLpVK1ZTMJe ICAgICAgICAgICAgICAgICAgICAgICAgICAgICAgICAgICAgICAgICAgICAgICAgICAgICAgICAgICAg LBUxFMBcVWEzIAYqGMInVCPsBGFcRMIpRVQfQUHuDGYuGGKmOS4FJBCmTYKfAJZxZZUhCBTyNNNkDZQs ICAgICAgICAgICAgICAgICAgICAgICAgICAgICAgIC SjPKCmARXdMEXrLSNoBEShXLZqIVMuSWNtREVfHSVyVGKfXVJgLMAvGNTcDAFaCI9WKVRnPWFqZPKwKN AgICAgICAgICAgICAgICAgICAgICAgICAgICAgICAgICAgICAgICAgICAgICAgICAgICAgICAgICAgIC OzTQSdJBNyEGOkTSNaVTXrNXRfWTAeHCZxXCWoQE9R ICAgICAgICAgICAgICAgICAgICAgICAgICAgICAgICAgICAgICAgICAgICAgICAgICAgICAgICAgICAg IBIsDBPwAZAsOTJtPDMyTAAnFXBxLOSuSEFcSTGtUPNuOANtSDZvJI5JBQ04wBDly9B4NKLfWI5mltx/ Ko1QQSucfeMbgXNaAJ6EFpUhUQ8vlc3PRnAvUL9fwg 7JXIePCjAdA7J3jECbPCDjPLFGEhHqJ19fFQtzVu06OLzrPBYzCjUjCPj2Gx3AMtQxI4erPBHgAfK8YZ SyUnI9BFEdAxU4GENtApIgVEztIY2Vz2PdxBNyKUq+Df5YZU9ls2NiRAkiInVxJF9jqr3RHEdCMrMgM0 ZkxtF8CHS9NGBjIk3AIKApGURxxRXoZTWkIZASGxIh Z4XabT11AFQBWj2+KEixeyEwXpnQXuA0OPEql2TsNJs8KD7UDOXeYNd6bAZeT5ScguJ1cLUhKN0kgMVt HzdbFZjniJKkcHXYHEJdF7yryafrVY8kZHEhOV4oZD3qWXAoQEO6UxFgOSQTAH6QEQSwGDRfvINxWVNa DZCJHE7ROBolJFX8PJPftzZwbTNfSPdeMQ5GSGBvyp QgMjcgMCBSDQo+Nk2IUS2mm5FbWVfkBLSaJC8bph7YIAmYQsRnM8K3mDDuE4Z9CQeoPx2OCQPvKZYvFw QeHQYNBChyJZ6SWJ5eyeL4JO3XaIHrVBPrIOVduZYeMNd1E47fhOGbDYqnGW7DJWL+Robert+Su3AYZVsWN PaYNTaEcDgJUQVNjCcW9RrR8DXm4OaK0MgUB17vWmi nsBzVGgrXX0IRB1fZMIaHYPJAR3XmQRciM4hfpRwEcQxPVVPHkHrD21ndPAjITLlOKW3YBMvMk2TYUMk X7OydaCafCrsqbToFXSlZZKSHW9CDGmvrpSytZBvnBleSR33tSfjVV1CCi1ADnFqEM9det1OcXHmQj3Y ISGdSK7VHLPaRRAdAYNvRJM1EKEvTsXlHWqnBDDcYL OsFOC4HIZsWJDwOW1WJwHxVFLwNQt9ZDjsVLPiHRVqux2XNAHySMWyLPBoQzCzOHBvVFOxEUteBOGyKA PtSNZ3LBYiOGDyIP7CZwVsMTYoHYJ1LxItGKAqIYMuoj2IZEDoRDXlSPKiJDFkPHQyKVDiLRtvHDBzAO E0NZqhIHCdQEBfKB8TRdFzAQIiFGwjYWScOEWcQSUo ir1GYTXfRSLuLAV0TBDqYFMgJWNnKXjbWIZnZUNiHhZaDRFmZBMnPV9OShZvGZJnZEO2SxSpIJKlRYDk rz6QJLBwCWDfRCl8BTYsLGOjOWTuUAqcHCIlXINmBLHuOYAlSUWqOD8VMlTfSBXjRHQzHAXqZZLdMABa uz8COERrOCJpDtWzKeFvBFQzJBRnHXtnZOIfZTJlOh vdMKTiPDNnPT3GQoOaDACkIXOcROYrILCqMEQwng0KVYZwYEMoUVB7LxUhBHHaCHPnGSwnYUYjZOR9Lr YoLMFdUJYdFL3HJiFgUNDuALM1XDJnFRPeCBCxll3IAVFbUTGnSBu8XdUjKENeJQDuQMcdGDDkTYS7HQ gwYWYoBRSvRP9EUxNvFAJrUZujQCBoKQKiUHZkys7M LZFxYQPrQuC3LLFwHFHkPSUkODhnFAAmKYT8MQG5WAHcNWPmOB1JQrBbDPZeHTl4GEZdENGiDLFnqi0Y FWHaFDHuRRE8IiEtBXMeEBLmZSfpONQlCPK9GJP6OPWnIXDoPE1HEtRgMFUzMIn0SxShMFJwLOXulj3P jBOpxCuiwb6FZZhWRw7NwFqdRDTgHNoaTt4goAYcUP KcQOUSIu1ZevOeKFBuAHBKGYskYULoSVJ1LSFaGEytSzf7ZeXfBNCsVwmhLdVgIIsdKFPjU1G1YvL8Ab B5VAA8OJZvIBOrLGN5CbO2A8VsU6ZjLfDeTrFaAFY+UM7oFMa+Vz9Pp2MpvqK4ukWxGGzcRBzhUH8ISA NEQ8CXEb== ID Date Data Source [id number] 01/27/2021 12:13:47 PM EDT [facility] Name Value Range Interpretation Code Description Data Macie rce(s) Supporting Document(s) Progress Note [facility] IEFGCq5vJmATAzFu15/TTPuxMZIif0LaISmsSVb9TOspORGsU0JwJNH9pF0eNIA9VLbPHlKbIiFgYMJ4 lbm JcHrvDRgBeLTCkMhjCIjLwHAmgEciuzCPdPI6UsMX0LAFbZ91xJOPwISRdX0FxBSZoKPI+Cr3CRVVjvD XoZG9SSlwT9R3tr6cOCy0+rQ8JPxfcUwMco++SkHyfqdOL6vb72TbFmC+UHlP1VxqwJZmj//ujSMnyTO rtIpniiLymM3PAAhr2Y6QbruXm1Y2/hV88xArIfE+/ +TNOPdO/MH/6g5n24ty4r42+ZC+QQ4cI9nVkL/I/qqptBsw9Yzj/OCafzRx/yh+xobJGfK3jQXD48NeE 9lv6pzIpJTtKaB/m5NHB+7Lbq7BvB1TI27ey+Oxp6yq2okxQqeDShTK3lgddOuYZHKalvdQ7GJm98qTp iLlK6lXUoKFn43je6rNYgCI0Q9mKCGFjsGv43T8u0p aZ+gC4kc79tiHfIZ0gpSG32mF4r10VJd938sVg4Hvy/2zJ9WaueerS94NN7/Js2L/Vj6zIydCHzrPQc+ eIC9k/gdifQLVzJknKDY6xcVoMreDeYiUjcf7g3R5SX/Lp1Yem9+e5t81yXvuKY9l9qd6Ie+Qx7dTked 3paXeD4K6lFEJKoJQ2/G1cvd2dtg8tLb9R0if1ET7+ oAneJDOFLSzkMT5fBMhEswFoIDk/QFWS+sI8bcfjcYu6CI395gm9ZbCPxYA0Eg+nzlz4bwjd/Kathleen+Itx [file] ICAgICAgICAgICAgICAgICAgICAgICAgICAgICAgICAgICAgICAgICAgICAgICANCiAgICAgICAgICAg ICAgICAgICAgICAgICAgICAgICAgICAgICAgICAgIC AgICAgICAgICAgICAgICAgICAgICAgICAgICAgICAgICAgICAgICAgICAgICAgICAgICAgICAgICANCi AgICAgICAgICAgICAgICAgICAgICAgICAgICAgICAgICAgICAgICAgICAgICAgICAgICAgICAgICAgIC AgICAgICAgICAgICAgICAgICAgICAgICAgICAgICAg ICAgICAgICANCiAgICAgICAgICAgICAgICAgICAgICAgICAgICAgICAgICAgICAgICAgICAgICAgICAg ICAgICAgICAgICAgICAgICAgICAgICAgICAgICAgICAgICAgICAgICAgICAgICAgICANCiAgICAgICAg ICAgICAgICAgICAgICAgICAgICAgICAgICAgICAgIC AgICAgICAgICAgICAgICAgICAgICAgICAgICAgICAgICAgICAgICAgICAgICAgICAgICAgICAgICAgIC ANCiAgICAgICAgICAgICAgICAgICAgICAgICAgICAgICAgICAgICAgICAgICAgICAgICAgICAgICAgIC AgICAgICAgICAgICAgICAgICAgICAgICAgICAgICAg ICAgICAgICAgICANCiAgICAgICAgICAgICAgICAgICAgICAgICAgICAgICAgICAgICAgICAgICAgICAg ICAgICAgICAgICAgICAgICAgICAgICAgICAgICAgICAgICAgICAgICAgICAgICAgICAgICANCiAgICAg ICAgICAgICAgICAgICAgICAgICAgICAgICAgICAgIC AgICAgICAgICAgICAgICAgICAgICAgICAgICAgICAgICAgICAgICAgICAgICAgICAgICAgICAgICAgIC AgICANCiAgICAgICAgICAgICAgICAgICAgICAgICAgICAgICAgICAgICAgICAgICAgICAgICAgICAgIC AgICAgICAgICAgICAgICAgICAgICAgICAgICAgICAg ICAgICAgICAgICAgICANCiAgICAgICAgICAgICAgICAgICAgICAgICAgICAgICAgICAgICAgICAgICAg ICAgICAgICAgICAgICAgICAgICAgICAgICAgICAgICAgICAgICAgICAgICAgICAgICAgICAgICANCjw/ lMYbY1uydDGbtvJ9V3dhAj0HNa7DUG8ml5OxKIEwNL hyrcFbDyrCNgDsDGBwTqsQFwq0NKgcFH1DaAErW8EnH1BaPZcyTE7THESkQGZyvLNjNXNgTLKcAoC7RG RcNNkaDM8YrYLgYJbgVWMwJSHgFjRyKXVvJHMcKSOeBN6PLEXtL828ncUxYt4EJx6NByKyZF5dnx3VVw XdVQVaPhgWQnu7JOmfNR8JsUAwyMAjIWIzYOWMIyJi R4nkh8YrSqCwAURTDZkrSR5Ic7SfgBSlBJz+Sx6TSE5qz4HtVJtnMERtZG8omg1QUAiZKlJhU9VmhPgn DJFqo6adMODbZO6ayBNsGRD8MZ2qT7ttSZlpWMGLkhFoTAWpAEHEKZU5XWGnJtAwLvTxZQVxFKu0ZtPO ETmMJxJzE9Wed0XrYxI1KRZvJiVhTRznTFNnWpA8AN 59qWgzBM1MDVLhQHFwVE84NPByHWRePr2IGv9QKrIcZL9nmn4DNcGmAVYbPrgOAnx1UXqaOR0RmIXsG3 UdtRGim2xLRhFyX6ESTAJwTAKbDk0CAPXgVkUqTDVfUKsyCQ0wKPOnCAKYiMarqmR9PR8FGU5qvjKcPE 3HPmVwJh0qCg3CIoWoL2ZzG7XfFUAhGBLWQBhoZL4J FJsmQY6oAZ3Eo5JJyRDbyM2nuk4EJZQrDMKrGnjtkh1VDpliM2Y7nEgaBVAbPgCcJTLHUGibGR5QAEAq TTG3ZLZcZlOxZUGXFpGbG98eVL9UT5Dls08vYzZ5ZSYlYkHwMQyaDF10pCpmnzTddYYtqKykKV7MVk1+ DQplbmRvYmoNCnhyZWYNCjAgMjYNCjAwMDAwMDAwMD OkAeN5XxPeSa2AVVOsIWQdOGPyHlQpHZJlFXCbRYnuJFExCZI6SAW9AYOcIZEdCX8IHcFrRCLtTjs4Ye ZrSOAeWGAkjy7WLABeIUUaBXK0EsNwWOCePHWeQWvtDQHrOEX7QAi4ZPFzOPRlNE7IOoSvMYFeZOQ5ZH BvJZZiKGGlyv2LKDZwEBHhVXKfOHPxDOJiWITuYAxs XNAwBDZ4KnTzIGBdGTJfRS1TGpBqFNZsDGL2LfChVEIsWKKqvo2GABUcXIByQXCbEdBzFWNzNUVqGPdj RBCbKVZcIQg9XMJnBGHgTY7FPpUoAVHdBDGjTMPcOIEvABDqsy0TSSPnFTQrGtI1PyVbYBNlXBLyQIlb TPPzVPYyQwS5KFOjTIVpQS8VWiVqYWNiPSN1ZffpJO UkFDWcfl2WWTXgNFCgEfdkXiVmNCVnHDNuPIfpJJGgRVJ6ROwhSSCwYZInGJ7SVdViPSBiKwJaSAbyZJ OiZRIfgo0BHHThZPYmVYCtDlXzGBKyNOLhNZkyJCJgJVF6LRQ9JKTfBRTwSW7DDdGuBLBoHmZ6SHJlMP AtOHIgmy5FDFDqKMSzCoZ8NyIjCHMyCMFvFIbqBORn HFU7GWDpGATiTTBwXF4SEvWfKSIzLth7KIFuPXHiDUDsjq3WVTOlWSPbYBX4ALGeNJZmKQIjGJu9nlEa aWKxKPa8XI2VS5XgssNkVjMVEv9Sh237AOE0ZPWbBn0CC2mcZi0fNTZfPSILCs2NIYl1O8A7ABR3ZEPi AQP9IvE8QNtsV3UrHIVyESXgQZP3YWO+IDwzZjYwZT WhCrNgAtZ8AFp2NQHlMdXuVKPcIUZqFxomBJ2eEBVKHu3+XCdzmTHsoMclPVBDTbA7NdR9LGmsYMNRNm 0K ID Date Data Source [id number] 01/27/2021 05:50:35 AM [facility] Name Value Range Interpretation Code Description Data Macie rce(s) Supporting Document(s) HIV 1+2 Ab+HIV1 p24 Ag [Presence] in Serum or Plasma by Immu noassay Non Reactive [facility] Negative for HIV-1 p24 antigenand HIV-1/ HIV-2 antibodies. Nolaboratory evidence of HIVinfection. ID Date Data Source [id number] 01/27/2021 08:28:52 AM [facility] Name Value Range Interpretation Code Description Data Macie rce(s) Supporting Document(s) Hepatitis C virus Ab [Presence] in Serum or Plasma by Immuno assay Non Reactive [facility] No serological evidence of active infect ion. If recent exposure is suspected, test for HCV RNA. ID Date Data Source [id number] 01/27/2021 05:21:27 AM [facility] Name Value Range Interpretation Code Description Data Macie rce(s) Supporting Document(s) Leukocytes [#/volume] in Blood by Automated count 10.7 10*3/uL 4-[address] [facility] Erythrocytes [#/volume] in Blood by Automated count 3.22 10*6/uL 4.6- 6.[address] [facility] Hemoglobin [Mass/volume] in Blood 9.5 g/dL 13.5-[address] [facility] Hematocrit [Volume Fraction] of Blood by Automated count 28.4 % 4 1-[address] [facility] Erythrocyte mean corpuscular volume [Entitic volume] by Auto mated count 88.4 fL 80-96 [facility] Erythrocyte mean corpuscular hemoglobin [Entitic mass] by Automated count 29.4 pg 27-33 [facility] Erythrocyte mean corpuscular hemoglobin concentration [Mass/volume] by Automated count 33.3 g/dL 32.0-[facility].0 [facility] width [Ratio] by Automated count 14.8 % 11.5-14.[address] [facility] Platelets [#/volume] in Blood by Automated count 239 10*3/uL 150-400 [facility] Differential cell count method - Blood [facility] Neutrophils/100 leukocytes in Blood by Automated count 84 % [facility] Lymphocytes/100 leukocytes in Blood by Automated count 10 % [facility] Monocytes/100 leukocytes in Blood by Automated count 6 % [facility] Eosinophils/100 leukocytes in Blood by Automated count 0 % [facility] Basophils/100 leukocytes in Blood by Automated count 0 % [facility] Neutrophils [#/volume] in Blood by Automated count 9.02 10*3/uL 1.8-[address] [facility] Lymphocytes [#/volume] in Blood by Automated count 1.05 10*3/uL 1.2-[address] [facility] Monocytes [#/volume] in Blood by Automated count 0.67 10*3/uL 0-0.8 [facility] Eosinophils [#/volume] in Blood by Automated count 0.00 10*3/uL 0-0.5 [facility] Basophils [#/volume] in Blood by Automated count 0.01 10*3/uL 0-0.2 [facility] Nucleated erythrocytes/100 leukocytes [Ratio] in Blood by Automated count 0 /100{WBCs} 0-0 [facility] ID Date Data Source [id number] 01/27/2021 05:37:01 AM EDT [facility] Name Value Range Interpretation Code Description Data Macie rce(s) Supporting Document(s) Bicarbonate [Moles/volume] in Serum 22 mmol/L -29 [facility] Chloride [Moles/volume] in Serum or Plasma 100 mmol/L 98-107 [facility] Creatinine [Mass/volume] in Serum or Plasma 0.74 mg/dL 0.70-1.20 [facility] Glucose [Mass/volume] in Serum or Plasma 122 mg/dL 70-140 [facility] Potassium [Moles/volume] in Serum or Plasma 4.2 mmol/L 3.4-5.1 [facility] Sodium [Moles/volume] in Serum or Plasma 131 mmol/L 136-[address] [facility] Urea nitrogen [Mass/volume] in Serum or Plasma 24 mg/dL 8-[address] [facility] Anion gap 3 in Serum or Plasma 9 mmol/L 8-15 [facility] Osmolality of Serum or Plasma by calculation 277 mosm/kg 275-300 [facility] Creatinine/Urea nitrogen [Mass Ratio] in Serum or Plasma 33 [facility] Calcium [Mass/volume] in Serum or Plasma 8.2 mg/dL 8.8-10.[address] [facility] Glomerular filtration rate/1.73 sq M pre dicted among non-blacks [Volume Rate/Area] in Serum or Plasma by Creatinine-based formula (MDRD) >[address] [facility] Glomerular filtration rate/1.73 sq M pre dicted among blacks [Volume Rate/Area] in Serum or Plasma by Creatinine-based formula (MDRD) >60 [facility] ID Date Data Source [id number] 01/27/2021 05:37:01 AM [facility] Name Value Range Interpretation Code Description Data Macie rce(s) Supporting Document(s) Magnesium [Mass/volume] in Serum or Plasma 1.8 mg/dL 1.6-2.4 [facility] ID Date Data Source [id number] 01/27/2021 05:37:01 AM [facility] Name Value Range Interpretation Code Description Data Macie rce(s) Supporting Document(s) Phosphate [Mass/volume] in Serum or Plasma 3.7 mg/dL 2.5-4.5 [facility] ID Date Data Source [id number] 01/26/2021 09:36:31 PM T [facility] XR CHEST FRONTAL ONLY [id number] RESULTI nterpreted by:Katherine Tom [facility] Exam: XR Chest Exam date and time: 01/26/21 08:48 PM Age: 70 years old Clinical indication: Illness, unspecified; Other: Port placement TECHNIQUE: Imaging protocol: XR of the chest. Views: 1 view. COMPARISON: No relevant prior studies available. FINDINGS: Lungs: Unremarkable. No consolidation. Pleural spaces: No pneumothorax. Heart/Mediastinum: Unremarkable. No cardiomegaly. Vasculature: Right subclavian MediPort catheter overlies the SVC. Bones/joints: Unremarkable. IMPRESSION: 1. Right subclavian MediPort catheter overlies the SVC. 2. No pneumothorax. THIS DOCUMENT HAS BEEN ELECTRONICALLY SIGNED BY KATHERINE TOM MDThis document has been electronically signed by Katherine Tom MD on 01/26/2021 9:36 PM Name Value Range Interpretation Code Description Data Macie rce(s) Supporting Document(s) ID Date Data Source [id number] 01/26/2021 03:30:31 PM EDT [facility] FLUORO NON-RAD PROC-OR [id number] RESULT This statement is intended for documentation purposes only.This exam was performed in the Operating Room by the Surgeon and a Radiologist was not present. Please refer to the Operative note in EPIC. Name Value Range Interpretation Code Description Data Macie rce(s) Supporting Document(s) ID Date Data Source [id number] 01/26/2021 02:12:59 PM EDT [facility] Name Value Range Interpretation Code Description Data Macie rce(s) Supporting Document(s) History and Physical [facility] EEDTEf8dTdLJAoXx68/MRMekXIWjs6OlLCzpXTt0DVwqJUGgB2HwCIG5vZ8jCTR2EZwIVwUnIpLrGAT0 lbm [file] [id number] ID Date Data Source [id number] 02/02/2021 04:57:00 PM T [facility] CYTOPATHOLOGY REPORTName: SHRAVAN FAUSTINN Lexie Number: [id number] Date: 01/26/2021 00:00Received Date: 01/30/2021 10:57Physician(s): EDDIE HEALY,EDDIE LERNER, Specimen(s) ReceivedA: PERITONEAL WASHINGClinical History:History of esophageal adenocarcinoma per EPIC. Now with liver mass. Seealso [id number], and [id number].DiagnosisPERITONEAL WASHING: NO EVIDENCE OF MALIGNANCYComment/bs/calReviewing Cytotech: Vibha Stroud, , [place] (ASCP)Pari Steven M.D.;Resident PathologistElectronically Signed By Varsha Fisher M.D. 02/02/2021 16:57:03The attending pathologist named above attests that he/she has personallyreviewed the relevant preparation(s) for the specimen(s) and rendered thefinal diagnosis. Microscopic DescriptionThe specimen is composed of sheets of mesothelial cells, with reactivechanges. /bsGross Rervoowevtv22 ml clear, pink-tinged fluid received: 2 slides prepared bycytocentrifugation: 1 Diff Quik and 1 Pap stain.This report may include one or more immunohistoche mical stain results thatuse analyte specific reagents. All positive and negative controls havebeen reviewed by the attending pathologist and are satisfactory. The testswere developed and their performance characteristics determined by [facility] Pathololgy department. They have not been cleared or approved by [place] Food and Drug Administration. The FDA has determined that suchclearance or approval is not necessary. Name Value Range Interpretation Code Description Data Macie rce(s) Supporting Document(s) ID Date Data Source [id number] 01/31/2021 05:55:00 PM [facility] Surgical Pathology ReportName: STEFAN FAUSTIN RNMRN: [id number] Number: [id number] Date: 01/26/2021 00:00Received Date: 01/30/2021 08:58Physician(s): EDDIE HEALY,EDDIE LERNER,DOSpecimen(s) ReceivedA: LIver mass FSClinical HistoryLiver mass.DiagnosisLIVER NODULE/MASS, BIOPSY: BENIGN LIVER PARENCHYMA WITH FIBROUSHYALINIZED NODULE. NO MALIGNANCY IDENTIFIED./Ricardo Burnette M.D.;Resident PathologistElectronically Signed By Joe Guaman MD;, Attending Pathologist01/31/2021 17:55:48 The attending pathologist named above attests that he/she has personallyreviewed the relevant preparation(s) for the specimen, performedmicroscopic examination when indicated, and rendered the final diagnosis.Unless 'gross-only' is specified, the final diagnosis is based on amicroscopic examination of commercial sales representative sections of tissue.Intraoperative Consultation [facility]SA) Liver nodule, biopsy: Benign liver parenchyma. Per Dr. Baker on01/26/21.DAVID/DZ/pmwThe attending pathologist named above attests that he/she has personallyexamined the frozen section preparation and rendered the diagnosis. Gross DescriptionThe specimen is received fresh for intraoperative consultation and labeledwith the patient's name, "Sonu Faustin" and "liver nodule". It consists ofa 0.5 x 0.3 x 0.2 cm elongated portion of red-brown, rubbery soft tissue,which is submitted in toto for frozen section and the residual frozensection tissue is entirely submitted in one cassette. DAVID\\This report may include one or more immunohistochemical stain results thatuse analyte specific reagents. All positive and negative controls havebeen reviewed by the attending pathologist and are satisfactory. The testswere developed and their performance characteristics determined by [facility] Pathology department. They have not been cleared or approved by the USFood and Drug Administration. The FDA has determined that such clearanceor approval is not necessary. Name Value Range Interpretation Code Description Data Macie rce(s) Supporting Document(s) ID Date Data Source [id number] 01/24/2021 12:20:00 PM EDT [facility] Exam Number: [id number] OF EXAMINATIO N: 01/24/2021 11:46 EDTPET/CT HEAD TO MID THIGHCOMPARED TO:No priorsHISTORY: Newly diagnosed cancer. Esophageal cancer.TECHNIQUE: Following intravenous injection of 8.8 to mCi of FDG, atotal body PET scan was performed from the base of the of the skull tothe upper thighs. Prior to the PET scan, transmission CT wasperformed. Fusion images were created from the source data.Attenuation correction was applied.FINDINGS:There is diffuse thickening of the gastric cardia and fundus extendinginto the proximal gastric body with multifocal areas of abnormaluptake of activity highest at 7.6 in this patient with known cancer.Given the predominantly gastric involvement adenocarcinoma of gastriccardia and fundus should be considered. There are several enlargedgastrohepatic largest measuring 1.9 x 1.2 cm and the second largestmeasuring 1.5 x 1.2 cm and revealing SUVs in the range of 2-2 0.6consistent with wilfred spread of disease. There is no evidence for anyabnormal hepatic or osseous uptake. 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 There isno ascites.IMPRESSION:Multilobulated thickening of the gastric cardia and fundus withmultifocal areas of abnormal uptake more consistent withadenocarcinoma of the gastric cardia/fundus. Distal esophagealcarcinoma with invasion of the gastric wall can't also appear in thismanner. There are abnormal regional nodes as described aboveconsistent with wilfred spread of disease.Thank you for allowing us to participate in the care of your patient.I would be glad to review the i mages with you and answer any questionsthat you may have.Electronically signed in PS360 by: Negin Florence M.D. 112:07 EDT Reported By: - Delia FLORENCE M.D. Signed By: Delia FLORENCE M.D. Name Value Range Interpretation Code Description Data Macie rce(s) Supporting Document(s) ID Date Data Source [id number] 01/01/2021 08:57:00 AM EDT [facility] ([facility]) Name Value Range Interpretation Code Description Data Macie rce(s) Supporting Document(s) Surgical Pathology Consult [facility] test [facility] Surgical Pathology Report Name: SONU FAUSTIN Collection Date: 01/01/2021 00:00 Received Date: 01/01/2021 08:58 Physician(s): YOU SHEPARD MD ADJAPONG, OPOKU, MD Specimen(s) Received A: Material received for consultation, [place], [place] [address] Clinical History GE junction mass. Do HER2 testing for esophageal adenocarcinoma. Outside diagnosis of "invasive adenocarcinoma, poorly differentiated". Diagnosis IMMUNOHISTOCHEMISTRY, GE JUNCTION MASS, BIOPSY ([id number]; 12/26/20): HER2: Equivocal (2+). (See note). Note A rare residual minute cluster of tumor cells is present in the deeper tissue section used for our HER2 immunostain and shows equivocal (2+) staining. Given the paucity of cells in the remaining tissue block, HER2 FISH cannot be performed with this specimen. Additional tissue will be needed in order to perform HER2 FISH testing. Electronically Signed By Joe Guaman MD;, Attending Pathologist 01/03/2021 15:35:18 Unless 'gross-only' is specified, the final diagnosis is based on a microscopic examination of commercial sales representative sections of tissue. Gross Description Received from [facility] in [place], [place] are one H and E stained slide and one paraffin block labeled [id number] with the corresponding pathology report. /jrs This report may include one or more immunohistochemical stain results that use analyte specific reagents. All positive and negative controls have been reviewed by the attending pathologist and are satisfactory. The tests were developed and their performance characteristics determined by [facility] Pathology department. They have not been cleared or approved by the US Food and Drug Administration. The FDA has determined that such clearance or approval is not necessary. ID Date Data Source [id number] 01/03/2021 03:35:00 PM [facility] Surgical Pathology ReportName: LINOSTEFAN RNMRN: [id number] Number: [id number] Date: 01/01/2021 00:00Received Date: 01/01/2021 08:58Physician(s): YOU SHEPARD MD ADJAPONG, OPOKU, MDSpecimen(s) ReceivedA: Material received for consultation, [place], [place] [phone] HistoryGE junction mass. Do HER2 testing for esophageal adenocarcinoma. Outside diagnosis of "invasive adenocarcinoma, poorly differentiated".DiagnosisIMMUNOHISTOCHEMISTRY, GE JUNCTION MASS, BIOPSY ([id number]; 12/26/20): HER2: Equivocal (2+). (See note). NoteA rare residual minute c luster of tumor cells is present in the deepertissue section used for our HER2 immunostain and shows equivocal (2+)staining. Given the paucity of cells in the remaining tissue block, BFS6AMPW cannot be performed with this specimen. Additional tissue will beneeded in order to perform HER2 FISH testing. Electronically Signed By Joe Guaman MD;, Attending Pathologist01/03/2021 15:35:18 Unless 'gross-only' is specified, the final diagnosis is based on amicroscopic examination of commercial sales representative sections of tissue.Gross DescriptionReceived from [facility] in [place], [place] are one H and Estained slide and one paraffin block labeled [id number] with thecorresponding pathology report./jrsThis report may include one or more immunohistochemical stain results thatuse analyte specific reagents. All positive and negative controls havebeen reviewed by the attending pathologist and are satisfactory. The testswere developed and their performance characteristics determined by [facility] Pathology department. They have not been cleared or approved by the USFood and Drug Administration. The FDA has determined that such clearanceor approval is not necessary. Name Value Range Interpretation Code Description Data Macie rce(s) Supporting Document(s) ID Date Data Source [id number] 12/26/2020 03:07:00 PM EDT [facility] ([facility], ) Name Value Range Interpretation Code Description Data Macie rce(s) Supporting Document(s) Surgical pathology study Laboratory test result [facility] ([facility], ) Addendum 1 Entered: 01/04/2021-0826 HER2: Equivocal (2+). Note: A rare residual minute cluster of tumor cells is present in the deeper tissue section used for our HRE2 immunostain and shows equivocal (2+) staining. Given the paucity of the cells in the remaining tissue block, HER2 FISH cannot be performed with this specimen. Additional tissue will be needed in order to perform HER2 testing. See [facility] [id number] 01/04/2021825 Addendum Signed____ MAINE SCHUMACHER MD 01/04/2021825 FINAL DIAGNOSIS Esophagus, GE junction mass, biopsy: Invasive adenocarcinoma, poorly differentiated. 4/TR. HER2 testing result to follow. 12/28/2020 - [address], dysphagia, colon screening 12/27/2020 - 123 GROSS DIAGNOSIS Received in formalin labeled "biopsy GE junction mass" and consists of fragments of tissue 0.2 x 0.1 x 0.1 cm. All in one. -OA 12/27/2020 - 1230 Signed MAINE SCHUMACHER MD 12/29/2020 0911 ID Date Data Source [id number] 12/22/2020 12:30:00 PM EDT [facility] Name Value Range Interpretation Code Description Data Macie rce(s) Supporting Document(s) SARS-CoV-2 (COVID-19) RNA [Presence] in Respiratory specimen by RAN with probe detection Not Detected [facility] This lab was ordered by [facility] and reported by [facility]. Procedure Social History Code Duration Value Status Description Data Source(s ) Smoking 06/21/2021 12:00:00 AM EDT Current Smoker completed Curre nt Smoker eCW1 ([facility]) Smoking 06/21/2021 12:00:00 AM EDT Current Smoker completed Curre nt Smoker eCW1 ([facility]) Smoking 06/15/2021 12:00:00 AM EDT Current Smoker completed Curre nt Smoker eCW1 ([facility]) Smoking 06/15/2021 12:00:00 AM EDT Current Smoker completed Curre nt Smoker eCW1 ([facility]) Smoking 06/12/2021 12:00:00 AM EDT Current Smoker completed Curre nt Smoker eCW1 ([facility]) Smoking 06/06/2021 12:00:00 AM EDT Current Smoker completed Curre nt Smoker eCW1 ([facility]) Smoking 05/29/2021 12:00:00 AM EDT Current Smoker completed Curre nt Smoker eCW1 ([facility]) Smoking 05/21/2021 12:00:00 AM EDT Current Smoker completed Curre nt Smoker eCW1 ([facility]) Smoking 05/21/2021 12:00:00 AM EDT Current Smoker completed Curre nt Smoker eCW1 ([facility]) Smoking 05/17/2021 12:00:00 AM EDT Current Smoker completed Curre nt Smoker eCW1 ([facility]) Smoking 04/26/2021 12:00:00 AM EDT Current Smoker completed Curre nt Smoker eCW1 ([facility]) Smoking 04/05/2021 12:00:00 AM EDT Current Smoker completed Curre nt Smoker eCW1 ([facility]) Smoking 04/05/2021 12:00:00 AM EDT Current Smoker completed Curre nt Smoker eCW1 ([facility]) Smoking 03/29/2021 12:00:00 AM EDT Current Smoker completed Curre nt Smoker eCW1 ([facility]) Smoking 03/22/2021 12:00:00 AM EDT Current Smoker completed Curre nt Smoker eCW1 ([facility]) Smoking 03/15/2021 12:00:00 AM EDT Current Smoker completed Curre nt Smoker eCW1 ([facility]) Smoking 03/08/2021 12:00:00 AM EDT Current Smoker completed Curre nt Smoker eCW1 ([facility]) Smoking 02/28/2021 12:00:00 AM EDT Current Smoker completed Curre nt Smoker eCW1 ([facility]) Smoking 02/28/2021 12:00:00 AM EDT Current Smoker completed Curre nt Smoker eCW1 ([facility]) Smoking 02/23/2021 12:00:00 AM EDT Current Smoker completed Curre nt Smoker eCW1 ([facility]) Smoking 02/16/2021 12:00:00 AM EDT Current Smoker completed Curre nt Smoker eCW1 ([facility]) Smoking 02/09/2021 12:00:00 AM EDT Current Smoker completed Curre nt Smoker eCW1 ([facility]) Alcohol intake 01/30/2021 12:00:00 AM EDT Current drinker of al cohol (finding) completed Current drinker of alcohol (finding) [facility] Tobacco use and exposure 01/30/2021 12:00:00 AM EDT Never used co mpleted Never used [facility] Cigarettes smoked current (pack per day) - Reported 01/31/20 12:00:00 AM EDT UNK completed [facility] Smoking 01/30/2021 12:00:00 AM EDT Current some day smoker com pleted Current some day smoker [facility] Alcohol intake 01/22/2021 12:00:00 AM EDT Current drinker of al cohol (finding) completed Current drinker of alcohol (finding) [facility] Smoking 01/18/2021 12:00:00 AM EDT Current Smoker completed Curre nt Smoker eCW1 ([facility]) Smoking 01/18/2021 12:00:00 AM EDT Current Smoker completed Curre nt Smoker eCW1 ([facility]) Smoking 01/18/2021 12:00:00 AM EDT Current Smoker completed Curre nt Smoker eCW1 ([facility]) Smoking 01/18/2021 12:00:00 AM EDT Current Smoker completed Curre nt Smoker eCW1 ([facility]) Smoking 12/20/2020 12:00:00 AM EDT Current Smoker completed Curre nt Smoker eCW1 ([facility]) Smoking 12/20/2020 12:00:00 AM EDT Current Smoker completed Curre nt Smoker eCW1 ([facility]) Smoking 05/10/2020 12:00:00 AM EDT Current Smoker completed Curre nt Smoker eCW1 ([facility]) Smoking 05/10/2020 12:00:00 AM EDT Current Smoker completed Curre nt Smoker eCW1 ([facility]) Vital Signs ID Date Data Source UNK Name Value Range Interpretation Code Description Data Source(s) Body weight 134 [lb_av] 134 [lb_av] eCW1 ([facility]) Body weight 60.78 kg 60.78 kg eCW1 ([facility]) Body height 66 [in_i] 66 [in_i] eCW1 ([facility]) Body mass index (BMI) [Ratio] 21.63 kg/m2 21.63 kg/m2 eCW1 ([facility]) Heart rate 94 /min 94 /min eCW1 ([facility]) Respiratory rate 18 /min 18 /min eCW1 ([facility]) Body temperature 98.2 [degF] 98.2 [degF] eCW1 ( [facility]) Systolic blood pressure 122 mm[Hg] 122 mm[Hg] e CW1 ([facility]) Diastolic blood pressure 78 mm[Hg] 78 mm[Hg] eCW1 ([facility]) Body weight 138.6 [lb_av] 138.6 [lb_av] eCW1 ([facility]) Body temperature 98.6 [degF] 98.6 [degF] eCW1 ( [facility]) Systolic blood pressure 143 mm[Hg] 143 mm[Hg] e CW1 ([facility]) Diastolic blood pressure 66 mm[Hg] 66 mm[Hg] eCW1 ([facility]) Body weight 62.87 kg 62.87 kg eCW1 ([facility]) Body height 66 [in_i] 66 [in_i] eCW1 ([facility]) Body mass index (BMI) [Ratio] 22.37 kg/m2 22.37 kg/m2 eCW1 ([facility]) Heart rate 89 /min 89 /min eCW1 ([facility]) Respiratory rate 18 /min 18 /min eCW1 ([facility]) Body mass index (BMI) [Ratio] 22.37 kg/m2 22.37 kg/m2 eCW1 ([facility]) Body height 66 [in_i] 66 [in_i] eCW1 ([facility]) Body weight 138.6 [lb_av] 138.6 [lb_av] eCW1 ([facility]) Body weight 62.87 kg 62.87 kg eCW1 ([facility]) Respiratory rate 18 /min 18 /min eCW1 ([facility]) Body temperature 98.5 [degF] 98.5 [degF] eCW1 ( [facility]) Systolic blood pressure 138 mm[Hg] 138 mm[Hg] e CW1 ([facility]) Diastolic blood pressure 74 mm[Hg] 74 mm[Hg] eCW1 ([facility]) Heart rate 90 /min 90 /min eCW1 ([facility]) Body weight 135 [lb_av] 135 [lb_av] eCW1 ([facility]) Body weight 61.24 kg 61.24 kg eCW1 ([facility]) Body height 66 [in_i] 66 [in_i] eCW1 ([facility]) Body mass index (BMI) [Ratio] 21.79 kg/m2 21.79 kg/m2 eCW1 ([facility]) Heart rate 76 /min 76 /min eCW1 ([facility]) Respiratory rate 18 /min 18 /min eCW1 ([facility]) Body temperature 98.7 [degF] 98.7 [degF] eCW1 ( [facility]) Systolic blood pressure 120 mm[Hg] 120 mm[Hg] e CW1 ([facility]) Diastolic blood pressure 68 mm[Hg] 68 mm[Hg] eCW1 ([facility]) Body weight 135 [lb_av] 135 [lb_av] eCW1 ([facility]) Body weight 61.24 kg 61.24 kg eCW1 ([facility]) Body height 66 [in_i] 66 [in_i] eCW1 ([facility]) Body mass index (BMI) [Ratio] 21.79 kg/m2 21.79 kg/m2 eCW1 ([facility]) Heart rate 91 /min 91 /min eCW1 ([facility]) Respiratory rate 18 /min 18 /min eCW1 ([facility]) Body temperature 98.0 [degF] 98.0 [degF] eCW1 ( [facility]) Systolic blood pressure 130 mm[Hg] 130 mm[Hg] e CW1 ([facility]) Diastolic blood pressure 72 mm[Hg] 72 mm[Hg] eCW1 ([facility]) Body weight 132.6 [lb_av] 132.6 [lb_av] eCW1 ([facility]) Body height 66 [in_i] 66 [in_i] eCW1 ([facility]) Body mass index (BMI) [Ratio] 21.40 kg/m2 21.40 kg/m2 eCW1 ([facility]) Heart rate 97 /min 97 /min eCW1 ([facility]) Respiratory rate 18 /min 18 /min eCW1 ([facility]) Body temperature 98.7 [degF] 98.7 [degF] eCW1 ( [facility]) Systolic blood pressure 120 mm[Hg] 120 mm[Hg] e CW1 ([facility]) Diastolic blood pressure 68 mm[Hg] 68 mm[Hg] eCW1 ([facility]) Body weight 128 [lb_av] 128 [lb_av] eCW1 ([facility]) Body height 66 [in_i] 66 [in_i] eCW1 ([facility]) Body mass index (BMI) [Ratio] 20.66 kg/m2 20.66 kg/m2 eCW1 ([facility]) Heart rate 101 /min 101 /min eCW1 ([facility]) Respiratory rate 16 /min 16 /min eCW1 ([facility]) Body temperature 98 [degF] 98 [degF] eCW1 ([facility]) Systolic blood pressure 150 mm[Hg] 150 mm[Hg] e CW1 ([facility]) Diastolic blood pressure 65 mm[Hg] 65 mm[Hg] eCW1 ([facility]) Diastolic blood pressure 61 mm[Hg] 61 mm[Hg] eCW1 ([facility]) Body weight 128 [lb_av] 128 [lb_av] eCW1 ([facility]) Body height 66 [in_i] 66 [in_i] eCW1 ([facility]) Body mass index (BMI) [Ratio] 20.66 kg/m2 20.66 kg/m2 eCW1 ([facility]) Heart rate 82 /min 82 /min eCW1 ([facility]) Respiratory rate 16 /min 16 /min eCW1 ([facility]) Body temperature 98 [degF] 98 [degF] eCW1 ([facility]) Systolic blood pressure 89 mm[Hg] 89 mm[Hg] e CW1 ([facility]) Body weight 128 [lb_av] 128 [lb_av] eCW1 ([facility]) Body weight kg eCW1 ([facility]) Body height 66 [in_i] 66 [in_i] eCW1 ([facility]) Body mass index (BMI) [Ratio] 20.66 kg/m2 20.66 kg/m2 eCW1 ([facility]) Heart rate 56 /min 56 /min eCW1 ([facility]) Respiratory rate 17 /min 17 /min eCW1 ([facility]) Body temperature 98.4 [degF] 98.4 [degF] eCW1 ( [facility]) Systolic blood pressure 130 mm[Hg] 130 mm[Hg] e CW1 ([facility]) Diastolic blood pressure 60 mm[Hg] 60 mm[Hg] eCW1 ([facility]) Body weight 128 [lb_av] 128 [lb_av] eCW1 ([facility]) Body weight kg eCW1 ([facility]) Body height 66 [in_i] 66 [in_i] eCW1 ([facility]) Body mass index (BMI) [Ratio] 20.66 kg/m2 20.66 kg/m2 eCW1 ([facility]) Heart rate 87 /min 87 /min eCW1 ([facility]) Respiratory rate 18 /min 18 /min eCW1 ([facility]) Body temperature 97.3 [degF] 97.3 [degF] eCW1 ( [facility]) Systolic blood pressure 124 mm[Hg] 124 mm[Hg] e CW1 ([facility]) Diastolic blood pressure 60 mm[Hg] 60 mm[Hg] eCW1 ([facility]) Body weight 132 [lb_av] 132 [lb_av] eCW1 ([facility]) Body weight kg eCW1 ([facility]) Body height 66 [in_i] 66 [in_i] eCW1 ([facility]) Body mass index (BMI) [Ratio] 21.30 kg/m2 21.30 kg/m2 eCW1 ([facility]) Heart rate 102 /min 102 /min eCW1 ([facility]) Respiratory rate 17 /min 17 /min eCW1 ([facility]) Body temperature 97.9 [degF] 97.9 [degF] eCW1 ( [facility]) Systolic blood pressure 140 mm[Hg] 140 mm[Hg] e CW1 ([facility]) Diastolic blood pressure 69 mm[Hg] 69 mm[Hg] eCW1 ([facility]) Body weight 132 [lb_av] 132 [lb_av] eCW1 ([facility]) Body weight kg eCW1 ([facility]) Body height 66 [in_i] 66 [in_i] eCW1 ([facility]) Body mass index (BMI) [Ratio] 21.30 kg/m2 21.30 kg/m2 eCW1 ([facility]) Body temperature 98.5 [degF] 98.5 [degF] eCW1 ( [facility]) Systolic blood pressure 157 mm[Hg] 157 mm[Hg] e CW1 ([facility]) Diastolic blood pressure 73 mm[Hg] 73 mm[Hg] eCW1 ([facility]) Heart rate 89 /min 89 /min eCW1 ([facility]) Respiratory rate 16 /min 16 /min eCW1 ([facility]) Body weight 139 [lb_av] 139 [lb_av] eCW1 ([facility]) Body weight kg eCW1 ([facility]) Body height 66 [in_i] 66 [in_i] eCW1 ([facility]) Body mass index (BMI) [Ratio] 22.43 kg/m2 22.43 kg/m2 eCW1 ([facility]) Heart rate 82 /min 82 /min eCW1 ([facility]) Respiratory rate 17 /min 17 /min eCW1 ([facility]) Body temperature 99.3 [degF] 99.3 [degF] eCW1 ( [facility]) Systolic blood pressure 132 mm[Hg] 132 mm[Hg] e CW1 ([facility]) Diastolic blood pressure 61 mm[Hg] 61 mm[Hg] eCW1 ([facility]) Body weight 139 [lb_av] 139 [lb_av] eCW1 ([facility]) Systolic blood pressure 146 mm[Hg] 146 mm[Hg] e CW1 ([facility]) Diastolic blood pressure 68 mm[Hg] 68 mm[Hg] eCW1 ([facility]) Body weight kg eCW1 ([facility]) Body height 66 [in_i] 66 [in_i] eCW1 ([facility]) Body mass index (BMI) [Ratio] 22.43 kg/m2 22.43 kg/m2 eCW1 ([facility]) Heart rate 101 /min 101 /min eCW1 ([facility]) Respiratory rate 18 /min 18 /min eCW1 ([facility]) Body temperature 98.7 [degF] 98.7 [degF] eCW1 ( [facility]) Systolic blood pressure 129 mm[Hg] 129 mm[Hg] e CW1 ([facility]) Diastolic blood pressure 60 mm[Hg] 60 mm[Hg] eCW1 ([facility]) Body weight 139 [lb_av] 139 [lb_av] eCW1 ([facility]) Body weight kg eCW1 ([facility]) Body height 66 [in_i] 66 [in_i] eCW1 ([facility]) Body mass index (BMI) [Ratio] 22.43 kg/m2 22.43 kg/m2 eCW1 ([facility]) Heart rate 87 /min 87 /min eCW1 ([facility]) Respiratory rate 16 /min 16 /min eCW1 ([facility]) Body temperature 98.9 [degF] 98.9 [degF] eCW1 ( [facility]) Respiratory rate 16 /min 16 /min eCW1 ([facility]) Body mass index (BMI) [Ratio] 22.43 kg/m2 22.43 kg/m2 eCW1 ([facility]) Body temperature 99.5 [degF] 99.5 [degF] eCW1 ( [facility]) Systolic blood pressure 136 mm[Hg] 136 mm[Hg] e CW1 ([facility]) Diastolic blood pressure 78 mm[Hg] 78 mm[Hg] eCW1 ([facility]) Body weight kg eCW1 ([facility]) Body height 66 [in_i] 66 [in_i] eCW1 ([facility]) Heart rate 91 /min 91 /min eCW1 ([facility]) Body weight 139 [lb_av] 139 [lb_av] eCW1 ([facility]) Systolic blood pressure 120 mm[Hg] 120 mm[Hg] e CW1 ([facility]) Body height 68 [in_i] 68 [in_i] eCW1 ([facility]) Diastolic blood pressure 78 mm[Hg] 78 mm[Hg] eCW1 ([facility]) Body weight 142 [lb_av] 142 [lb_av] eCW1 ([facility]) Body weight 64.41 kg 64.41 kg eCW1 ([facility]) Body mass index (BMI) [Ratio] 21.59 kg/m2 21.59 kg/m2 eCW1 ([facility]) Heart rate 90 /min 90 /min eCW1 ([facility]) Oxygen saturation in Arterial blood by Pulse oximetry 96 % 96 % W1 ([facility]) Systolic blood pressure 139 mm[Hg] 139 mm[Hg] M EDENT ([facility]) Diastolic blood pressure 83 mm[Hg] 83 mm[Hg] [facility] ([facility]) Heart rate 89 /min 89 /min [facility] ([facility]) Body height 68 [in_i] 68 [in_i] [facility] ([facility]) 5'8" Body weight 140.25 [lb_av] 140.25 [lb_av] [facility]) Body mass index (BMI) [Ratio] 21.3 kg/m2 21.3 k g/m2 [facility] ([facility]) [place] body weight 154 [lb_av] 154 [lb_av] [facility] ([facility]) Body weight 63.617 kg 63.617 kg [facility] ([facility]) Body surface area Derived from formula 1.76 m2 1.76 m2 [facility] ([facility]) Systolic blood pressure 124 mm[Hg] 124 mm[Hg] e CW1 ([facility]) Diastolic blood pressure 80 mm[Hg] 80 mm[Hg] eCW1 ([facility]) Body height 68 [in_i] 68 [in_i] eCW1 ([facility]) Body weight 143 [lb_av] 143 [lb_av] eCW1 ([facility]) Body weight 64.86 kg 64.86 kg eCW1 ([facility]) Body mass index (BMI) [Ratio] 21.74 kg/m2 21.74 kg/m2 W1 ([facility]) Body temperature 98.2 [degF] 98.2 [degF] eCW1 ( [facility]) Heart rate 86 /min 86 /min eCW1 ([facility]) Oxygen saturation in Arterial blood by Pulse oximetry 96 % 96 % W1 ([facility]) Body weight 64.865 kg 64.865 kg [facility] ([facility]) [place] body weight 154 [lb_av] 154 [lb_av] [facility] ([facility]) Systolic blood pressure 154 mm[Hg] 154 mm[Hg] M EDENT ([facility]) Diastolic blood pressure 74 mm[Hg] 74 mm[Hg] [facility] ([facility]) Body height 68 [in_i] 68 [in_i] [facility] ([facility]) 5'8" Body weight 143.00 [lb_av] 143.00 [lb_av] [facility] ([facility]) Body mass index (BMI) [Ratio] 21.7 kg/m2 21.7 k g/m2 [facility] ([facility]) Body surface area Derived from formula 1.77 m2 1.77 m2 [facility] ([facility]) Body height 68 [in_i] 68 [in_i] W1 ([facility]) Body weight 158 [lb_av] 158 [lb_av] eCW1 ([facility]) Body mass index (BMI) [Ratio] 24.02 kg/m2 24.02 kg/m2 W1 ([facility]) Body temperature 97.2 [degF] 97.2 [degF] W1 ( [facility]) Heart rate 87 /min 87 /min W1 ([facility]) Oxygen saturation in Arterial blood by Pulse oximetry 95 % 95 % eCW1 ([facility]) Systolic blood pressure 128 mm[Hg] 128 mm[Hg] e CW1 ([facility]) Diastolic blood pressure 76 mm[Hg] 76 mm[Hg] eCW1 ([facility]) Body weight 71.67 kg 71.67 kg W1 ([facility]) ID Date Data Source [id number] 02/06/2021 02:58:00 PM EDT [facility] Name Value Range Interpretation Code Description Data Source(s) WEIGHT RECORDED 138.45 lb 138.45 lb [facility] Body height Measured 67 in 67 in [facility] WEIGHT RECORDED 139 lb 139 lb [facility] ID Date Data Source [id number] 01/27/2021 12:13:42 PM [facility] Name Value Range Interpretation Code Description Data Source(s) WEIGHT RECORDED 139.8 lb 139.8 lb [facility] Body height Measured 67 in 67 in [facility] Patient Treatment Plan of Care Planned Activity Planned Date Details Description Data Source (s) Levofloxacin 500 MG Oral [facility]t [facility] Levofl[facility] 500 MG Oral Tablet [facility] 0.4 ML Enoxaparin sodium 100 MG/ML Prefilled Syringe 021 12:00:00 AM [facility] oxyCODONE (ROXICODONE) 5 MG/5ML solution 2.5 mg 01/29/2021 02:58:56 PM [facility] Acetaminophen 32 MG/ML Oral Solution 01/27/2021 07:49:00 PM [facility] sodium chloride 0.9 % bag 3-20 mL 01/27/2021 01:32:39 PM [facility] ondansetron (ZOFRAN) injection 4 mg 01/26/2021 07:02:05 PM [facility]
[2021-06-29] MEDS ORDERED: propofoL 200 MG/20 ML VIAL As Ordered ONE (10:11)
[2021-06-29] MEDS ORDERED: LIDOCAINE 2% 100MG/5ML SDV (FOR ANES.) As Ordered ONE (10:11)
[2021-06-29] MEDS ORDERED: ROCURONIUM BROMIDE 50 MG/5 ML VIAL As Ordered ONE (10:11)
[2021-06-29] MEDS ORDERED: fentaNYL 100 MCG/2 ML INJECTION (J3010) As Ordered ONE (10:11)
[2021-06-29] MEDS ORDERED: dexameTHASONE 4 MG/ML 1ML VIAL (J1100 PER 1MG) As Ordered ONE (10:12)
[2021-06-29] MEDS ORDERED: ONDANSETRON 4MG/2ML VIAL As Ordered ONE (10:12)
[2021-06-29] MEDS ORDERED: SUGAMMADEX SODIUM 500 MG/5 ML VIAL (BRIDION) As Ordered ONE (10:14)
[2021-06-29] MEDS ORDERED: ALBUTEROL 6.7GM INHALER **FOR ANES. CART/OMNICELL ONLY As Ordered ONE (11:33)
[2021-06-29] MEDS ORDERED: ACETAMINOPHEN 1000MG 100ML IV BTL (OFIRMEV) (J0131 PER 10MG) As Ordered ONE (11:33)
--- NOTE | 2021-06-29 12:27 | REP ---
INDICATION: CYSTO, POSSIBLE LEFT URETERAL STENT PLACEMENT. COMPARISON: None. TECHNIQUE: Two KUB spot views obtained during left-sided retrograde pyelography and double pigtail stent placement. Fluoroscopy time provided Dr. Love 7 seconds. FINDINGS: Radiographic contrast material opacifies the left renal collecting system. The double pigtail stent is seen proximal portion of which is in the renal pelvis and distal portion of which is in the urinary bladder on the left. IMPRESSION: As above <Electronically signed by Mickey Coe > 06/29/21 [id number]
--- NOTE | 2021-06-29 12:55 | RO ---
OPERATIVE NOTE DATE OF OPERATION: 06/29/2021 PREOPERATIVE DIAGNOSIS: Bladder tumor. POSTOPERATIVE DIAGNOSIS: Bladder tumor, urethral meatal stenosis, bladder stones. PROCEDURE: Cystoscopy, transurethral resection of bladder tumors (greater than 5 cm), urethral meatal dilation, removal of bladder stones, left retrograde pyelogram with intraop interpretation of images, left ureteral stent placement. SURGEON: Jamar Love MD INCIDENT ANALYST: None. ANESTHESIA: General. OPERATIVE INDICATIONS: This is a 71-year-old male who was found to have a large collection of bladder tumors on his left trigone on office cystoscopy. He is brought to the operating room today for treatment. DESCRIPTION OF PROCEDURE: The patient was brought to the operating room and general anesthesia was induced. Prophylactic antibiotics were infused. He was then placed in dorsal lithotomy position and prepped and draped in usual sterile fashion. At this point I attempted to insert the resectoscope into urethral meatus but it would not go as the meatus was too narrow. I then dilated his urethral meatus to 30-Serbian using curved metal sounds. Once I was done I was able to get the resectoscope into the bladder. The bladder was then thoroughly examined. Of note, the patient had a large collection of bladder tumors over the left trigone and going up the left lateral wall. They were over 5 cm in size. There were also a few small bladder stones. The bladder stones were drained out of the bladder and sent for analysis. At this point I utilized bipolar loop to resect all of the bladder tumor. This was sent off as two different specimens. The superficial portion was sent off as bladder tumors. The deep portion was sent off as resection of bladder tumor base. Once all of the bladder tumor was completely removed, it was noted that I did have to resect over the left ureteral orifice. Therefore, I decided to place ureteral stent. At this point a 5-Serbian open ureteral catheter was used to cannulize the left ureteral orifice. A retrograde pyelogram was performed and it was negative for hydronephrosis, filling defects or extravasation. A guidewire was then advanced up the left collecting system. I then utilized the guidewire to advance a 7- Serbian x 22-32 cm JJ ureteral stent up the left collecting system. The wire was removed and there were adequate curls of the stent in left renal pelvis and in the bladder. At this point the resectoscope was removed. I then inserted an 18-Serbian Berman into the bladder and the balloon was filled with 10 mL of sterile water. The catheter was connected to gravity drainage and this marked the conclusion of the procedure. The patient was taken out of dorsal lithotomy position, awakened from anesthesia and transported to the recovery room in stable condition. ESTIMATED BLOOD LOSS: 5 mL. COMPLICATIONS: None. SPECIMEN: Bladder stones, bladder tumors, resection of bladder tumor base. PLAN: The patient will follow up in urology clinic in about one week for catheter removal and pathology results. We will remove his stent in 3-4 weeks. MACARIO
[2021-06-29 13:05] VITALS: BP 148/68
[2021-06-29] MEDS ORDERED: oxyCODONE 5MG TAB PO PRN (13:45)
[2021-06-29] MEDS ORDERED: fentaNYL 100 MCG/2 ML INJECTION (J3010) IV PRN (13:45)
[2021-06-29] MEDS ORDERED: ONDANSETRON 4MG/2ML VIAL IV PRN (13:45)
[2021-06-29] MEDS ORDERED: LR 1,000 ML IV SCH (13:45)
[2021-06-29] MEDS ORDERED: ACETAMINOPHEN TAB 650MG DOSE (2X325MG) PO PRN (13:45)
[2021-06-30] MEDS ORDERED: ACET-683 PO (18:01)
[2021-07-05 16:10] LABS: CA Oxalate Dihy 90 % (.); Ca Ox Monohydrate 5 % (.); Size 4x4 mm (.)
== END 2021-06-29 13:42 | disposition home or self-care (01) ==
LOC: M SDC 09:22
PROVIDERS: ATTEND Urology
DX: C67.0 Malignant neoplasm of trigone of bladder (principal); N35.911 Unspecified urethral stricture, male, meatal; N21.0 Calculus in bladder; I71.4 Abdominal aortic aneurysm, without rupture; Z85.01 Personal history of malignant neoplasm of esophagus; D64.9 Anemia, unspecified; M54.9 Dorsalgia, unspecified; R91.1 Solitary pulmonary nodule; Z92.21 Personal history of antineoplastic chemotherapy; Z86.14 Personal history of Methicillin resistant Staphylococcus aureus infection; Z92.3 Personal history of irradiation; F17.210 Nicotine dependence, cigarettes, uncomplicated; Z79.82 Long term (current) use of aspirin; Z79.899 Other long term (current) drug therapy
CPT/HCPCS: 52240; 52332; 74420; 82365; 88300; 88305; C1769; C2617; J0131; J0690; J1100; J2405; J3010; Q9961

== ENCOUNTER 2021-06-30 17:54 | Emergency (ER) | payer SELFPAY ==
[~2021-06-30] VITALS: Ht 170.2 cm; Wt 60.9 kg
[~2021-06-30 17:54] MED LIST changes: -CONRAY-60 60% 50ML VIAL (Q9961) As Ordered ONE; -EMLA CREAM 5GM TUBE (LIDOCAINE/PRILOCAINE) TOP PRN; -LIDOCAINE 1% MDV 20ML VIAL SQ PRN; -LR 1,000 ML IV ONE; -ceFAZolin SOD 2 GM in IV 1 EA IV ONE
[2021-06-30] MEDS ORDERED: ACET-683 PO (18:01)
[2021-06-30] MEDS ORDERED: ONDANSETRON 4 MG TAB PO ONE (18:40)
--- OUTSIDE RECORDS SUMMARY | 2021-06-30 18:40 | CCD ---
Author Author [facility] Organization [facility] Address Unknown Phone Unavailable Care Team Providers Care Manager Infrastructure Name Role Phone Toi LÓPEZ MD Unavailable [...] Adrien HAND Unavailable Unavailable YOUNG, A FATUMA AUTOMOBILE TESTER Unavailable Unavailable YOUNG, A FATUMA AUTOMOBILE TESTER Unavailable Unavailable YOUNG, A FATUMA AUTOMOBILE TESTER Unavailable Unavailable YOUNG, A FATUMA AUTOMOBILE TESTER Unavailable Unavailable YOUNG, A FATUMA AUTOMOBILE TESTER Unavailable Unavailable YOUNG, A FATUMA AUTOMOBILE TESTER Unavailable Unavailable YOUNG, A FATUMA AUTOMOBILE TESTER Unavailable Unavailable YOUNG, A FATUMA AUTOMOBILE TESTER Unavailable Unavailable YOUNG, A FATUMA AUTOMOBILE TESTER Unavailable Unavailable BUDNIKROSEANNE MD Unavailable Unavailable BUDNIKROSEANNE [...] ROSEANNE MD Unavailable Unavailable Mat, L Khadra AUTOMOBILE TESTER Unavailable Unavailable Mat, L Khadra AUTOMOBILE TESTER Unavailable Unavailable Mat, L Khadra AUTOMOBILE TESTER Unavailable Unavailable Mat, L Khadra AUTOMOBILE TESTER Unavailable Unavailable Mat, L Khadra AUTOMOBILE TESTER Unavailable Unavailable Mat, L Khadra AUTOMOBILE TESTER Unavailable Unavailable Mat, L Khadra AUTOMOBILE TESTER Unavailable Unavailable Mat, L Khadra AUTOMOBILE TESTER Unavailable Unavailable Mat, L Khadra AUTOMOBILE TESTER Unavailable Unavailable Mat, L Khadra AUTOMOBILE TESTER Unavailable Unavailable Mat, L Khadra AUTOMOBILE TESTER Unavailable Unavailable Mat, L Khadra AUTOMOBILE TESTER Unavailable Unavailable Mat, L Khadra AUTOMOBILE TESTER Unavailable Unavailable Mat, L Khadra AUTOMOBILE TESTER Unavailable Unavailable Mat, L Khadra AUTOMOBILE TESTER Unavailable Unavailable Mat, L Khadra AUTOMOBILE TESTER Unavailable Unavailable Mat, L Khadra AUTOMOBILE TESTER Unavailable Unavailable Mat, L Khadra AUTOMOBILE TESTER Unavailable Unavailable Mat, L Khadra AUTOMOBILE TESTER Unavailable Unavailable Mat, L Khadra AUTOMOBILE TESTER Unavailable Unavailable Mat, L Khadra AUTOMOBILE TESTER Unavailable Unavailable Mat, L Khadra AUTOMOBILE TESTER Unavailable Unavailable Mat, L Khadra AUTOMOBILE TESTER Unavailable Unavailable Mat, L Khadra AUTOMOBILE TESTER Unavailable Unavailable Mat, L Khadra AUTOMOBILE TESTER Unavailable Unavailable Healy I, A Eddie DO [...] Healy I, A Eddie DO Unavailable Unavailable Heayl I, A Eddie DO Unavailable Unavailable Healy [...] Unavailable Unavailable Tamara SHEPARD MD Unavailable Unavailable Tamraa SHEPARD MD Unavailable Unavailable Tamara SHEPARD MD [...] is protected by Article 27-F of the [facility] Public Health law. If you continue you may have access to information: Regarding HIV / AIDS; Provided by facilities licensed or operated by the [facility] Office of Mental Health; or Provided by the [facility] Office for People With Developmental Disabilities. If such information is present, then the following [facility] mandated warning applies: This information has been [...] law may result in a fine or correction sentence or both. A general authorization for the release of medical or other information is NOT sufficient authorization for further disc losure. Allergies and Adverse Reactions Type Description Substance Reaction Status Data Source(s ) Propensity to adverse reactions NO KNOWN ALLERGIES NO KNOWN ALLERGIES [facility] Encounters Encounter Providers Location Date Indications Data Source(s ) ([id number]) For Template [facility] [address] [place] [address] 06/27/2021 12:00:00 AM EDT eCW1 ([facility]) Outpatient Attender: FATUMA GOMEZ [facility] 06/25/2021 02:59:0 0 PM EDT [facility] Unknown [address] [facility] [address] 06/25/2021 12:00:00 AM EDT eCW1 ([facility]) (COVIDSWAB) COVID Swab Only [address] [place] [address] 06/25/2021 12:00:00 AM EDT eCW1 ([facility]) Outpatient [address] [facility] [address] 06/21/2021 12:00:00 AM EDT eCW1 ([facility]) Outpatient Attender: ROSEANNE DUKE MD ER-RAD 06/20/2021 01:21:00 AM EDT [facility] [place] [address] [facility] [address] 06/18/2021 12:00:00 AM EDT eCW1 ([facility]) Unknown [address] [facility] [address] 06/15/2021 12:00:00 AM EDT eCW1 ([facility]) ([id number]) For Template [facility] [address] [place] [address] 06/12/2021 12:00:00 AM EDT eCW1 ([facility]) Outpatient [address] [facility] [address] 06/06/2021 12:00:00 AM EDT eCW1 ([facility]) Unknown [address] [facility] [address] 05/29/2021 12:00:00 AM EDT eCW1 ([facility]) (Cysto1) Urology [address] [place] [address] 05/21/2021 12:00:00 AM EDT eCW1 ([facility]) Outpatient [address] [facility] [address] 05/17/2021 12:00:00 AM EDT eCW1 ([facility]) Outpatient [address] [facility] [address] 05/03/2021 12:00:00 AM EDT eCW1 ([facility]) ([id number]) For Template [facility] [address] [place] [address] 04/26/2021 12:00:00 AM EDT eCW1 ([facility]) Unknown [address] [facility] [address] 04/18/2021 12:00:00 AM EDT eCW1 ([facility]) ([id number]) For Template Fry [address] [place] [address] 04/05/2021 12:00:00 AM EDT eCW1 ([facility]) ([id number]) For Template [facility] [address] [place] [address] 03/29/2021 12:00:00 AM EDT eCW1 ([facility]) ([id number]) For Template [facility] [address] [place] [address] 03/22/2021 12:00:00 AM EDT eCW1 ([facility]) [place] [address] [facility] [address] 03/15/2021 12:00:00 AM EDT eCW1 ([facility]) Preadmit Attender: Khadra HIRSCHP CPSCAORT-IMAPD 03/09/2021 02:00:00 PM EDT [facility] DYSPHAGIA Outpatient [address] [facility] [address] 03/08/2021 12:00:00 AM EDT eCW1 ([facility]) Outpatient [address] [facility] [place] [address] 02/28/2021 12:00:00 AM EDT eCW1 ([facility]) Outpatient [address] [facility] [place] [address] 02/23/2021 12:00:00 AM EDT eCW1 ([facility]) Unknown [address] [place] [address] [place] [address] 02/19/2021 12:00:00 AM EDT eCW1 ([facility]) ([id number]) For Template [facility] [address] [place] [address] 02/16/2021 12:00:00 AM EDT eCW1 ([facility]) Outpatient Attender: Jenny Connolly 02/14/2021 12:00:00 AM EDT [facility] (WND NP120) New Patient [address] [place] [address] 02/08/2021 12:00:00 AM EDT eCW1 ([facility]) Outpatient [address] [facility] [address] [place] [address] 02/01/2021 12:00:00 AM EDT eCW1 ([facility]) Outpatient Attender: Jenny Connolly [id number] 01/30/2021 04:01:2 0 PM EDT [facility] Inpatient Attender: Eddie Healy IAdmitter: Eddie cooper I [id number] 01/26/2021 12:00:00 AM EDT - 01/30/2021 03:09:00 PM EDT Illness, unspecified [facility] Illness, unspecified Patient discharged. Outpatient Attender: CARMEN LÓPEZ MD ER-RAD 01/24/2021 03:08:0 0 AM EDT [facility] Outpatient Attender: Eddie Healy IReferrer: ROSEANNE Mcdonald MD [id number] 01/22/2021 12:00:00 AM EDT - 01/23/2021 12:59:53 PM EDT [facility] Outpatient Attender: Adrien Basilio MD ER-CARD 01/18/2021 10:14:00 AM EDT [facility] Outpatient [address] [place] [address] [address] [place] [address] 01/18/2021 12:00:00 AM EDT eCW1 ([facility]) Outpatient [address] [facility] [address] [place] [address] 01/18/2021 12:00:00 AM EDT eCW1 ([facility]) Outpatient [address] [facility] [address] [place] [address] 01/12/2021 12:00:00 AM EDT eCW1 ([facility]) Outpatient Attender: KYLER Corral/Medardo/Regino/ Nyla 01/11/2021 02:45:00 PM EDT MEDENT ([facility]) Outpatient Admitter: YOU SHEPARD MDReferrer: BRAEDEN SHEPARD MD 01/01/2021 12:00:00 AM EDT Other specified diseases of [facility] Other specified diseases of intestine Outpatient [address] [facility] [address] [place] [address] 12/20/2020 12:00:00 AM EDT eCW1 ([facility]) Outpatient Attender: YOU Corral/Medardo/Dre quezada/Nyla 12/19/2020 01:00:00 PM EDT MEDENT ([facility]) Outpatient [address] [place] [address] 12/18/2020 12:00:00 AM EDT eCW1 ([facility]) Outpatient [address] [place] [address] 05/10/2020 12:00:00 AM EDT eCW1 ([facility]) [facility] [address] [place] [address] 05/09/2020 12:00:00 AM EDT eCW1 ([facility]) Immunizations Vaccine Date Status Description Data Source(s) pneumococcal polysaccharide PPV23 05/03/2021 04:37:00 PM EDT comple sarthak eCW1 ([facility]) pneumococcal polysaccharide PPV23 05/03/2021 04:37:00 PM EDT comple sarthak eCW1 ([facility]) pneumococcal polysaccharide PPV23 05/03/2021 04:37:00 PM EDT comple sarthak eCW1 ([facility]) pneumococcal polysaccharide PPV23 05/03/2021 04:37:00 PM EDT comple sarthak eCW1 ([facility]) pneumococcal polysaccharide PPV23 05/03/2021 04:37:00 PM EDT comple sarthak eCW1 ([facility]) pneumococcal polysaccharide PPV23 05/03/2021 04:37:00 PM EDT comple sarthak eCW1 ([facility]) pneumococcal polysaccharide PPV23 05/03/2021 04:37:00 PM EDT comple sarthak eCW1 ([facility]) pneumococcal polysaccharide PPV23 05/03/2021 04:37:00 PM EDT comple sarthak eCW1 ([facility]) pneumococcal polysaccharide PPV23 05/03/2021 04:37:00 PM EDT comple sarthak eCW1 ([facility]) pneumococcal polysaccharide PPV23 05/03/2021 04:37:00 PM EDT comple sarthak eCW1 ([facility]) pneumococcal polysaccharide PPV23 05/03/2021 04:37:00 PM EDT comple sarthak eCW1 ([facility]) COVID Vaccine 2nd Dose (Pfizer) 12/28/2020 08:47:00 AM EDT complete d eCW1 ([facility]) COVID Vaccine 2nd Dose (Pfizer) 12/28/2020 08:47:00 AM EDT complete d eCW1 ([facility]) COVID Vaccine 2nd Dose (Pfizer) 12/28/2020 08:47:00 AM EDT complete d eCW1 ([facility]) COVID Vaccine 2nd Dose (Pfizer) 12/28/2020 08:47:00 AM EDT complete d eCW1 ([facility]) COVID-19 VACCINE Pfizer 12/28/2020 12:00:00 AM EDT completed [facility] Vaccine Series Complete: YESThis Data wa s Submitted to [facility] [employer]. COVID-19 VACCINE Pfizer 12/07/2020 12:00:00 AM EDT completed [facility] Vaccine Series Complete: NOThis Data was Submitted to [facility] [employer]. COVID Vaccine 1st Dose (Pfizer) 11/30/2020 08:47:00 AM EDT complete d eCW1 ([facility]) COVID Vaccine 1st Dose (Pfizer) 11/30/2020 08:47:00 AM EDT complete d eCW1 ([facility]) COVID Vaccine 1st Dose (Pfizer) 11/30/2020 08:47:00 AM EDT complete d eCW1 ([facility]) COVID Vaccine 1st Dose (Pfizer) 11/30/2020 08:47:00 AM EDT complete d eCW1 ([facility]) Medications Medication Brand Name Start Date Product Form Dose Route Admi nistrative Instructions Pharmacy Instructions Status Indications Reaction Description Data Source(s) [id number] 03/06/2021 12:00:00 AM EDT Suspension 240 TAKE [...] {tablet} active Le vaquin 500 MG eCW1 ([facility]) Levofloxacin 500 MG Oral Tablet Levaquin 500 MG Levaquin 500 MG 02/28/2021 12:00:00 AM EDT 1.0 {tablet} active Le vaquin 500 MG eCW1 ([facility]) Levofloxacin 500 MG Oral Tablet Levaquin 500 MG Levaquin 500 MG 02/28/2021 12:00:00 AM EDT 1.0 {tablet} active Le vaquin 500 MG eCW1 ([facility]) 0.4 ML Enoxaparin sodium 100 MG/ML Prefi lled Syringe Enoxaparin Sodium 40 MG/0.4ML Subcutaneous Solution (LOVENOX) Enoxaparin Sodium 40 MG/0.4ML Subcutaneous Solution (LOVENOX) 01/31/2021 12:00:00 AM EDT 40 mg Subcutaneous active Inject 0.4 mLs into the s kin daily for 6 days [facility] oxyCODONE (ROXICODONE) 5 MG/5ML solution 2.5 [...] 7-10), not relieved by non-narcotic, Starting on Fri01/29/21 at 1458, For 72 hours [Order 2 End] [facility] Medication administered onsite Docusate Sodium 10 MG/ML Oral Suspension docusate (COLACE) 50 MG/5ML liquid 100 mg docusate (COLACE) 50 MG/5ML liquid 100 mg 01/28/2021 09:00:00 AM EDT 100 mg Per G Tube active 100 mg, P er G Tube, 2 Times Daily, First dose on 01/28/21 at 0900, For 30 days [facility] Medication administered onsite Lactulose 667 MG/ML Oral Solution lactulose (CHRONULAC ) solution 30 mL lactulose (CHRONULAC) solution 30 mL 01/28/2021 09:00:00 AM EDT 30 mL Per J Tube aborted 30 mL, Per J Tube, T hree Times Daily Standard, First dose on 01/28/21 at 0900, For 30 days [facility] Medication administered onsite Docusate Sodium 100 MG Oral Capsule docusate sodium (C OLACE) capsule 100 mg docusate sodium (COLACE) capsule 100 mg 01/28/2021 09:00:00 AM EDT 100 mg Oral aborted 100 mg, Oral, 2 Times Daily, First dose on 01/28/21 at 0900, For 30 days [facility] Medication administered onsite Acetaminophen 32 MG/ML Oral [...] mg from all sources in 24 hours.
[facility] Medication administered onsite sodium chloride (preservative free) 0.9 % flush 3 mL 01/27/2021 05:00:00 PM EDT 3 mL Intravenous active [Ord er 1 Start] Name: Peripheral IV Signed Summary: Routine, CONTINUOUS, Starting on 01/27/21 at 1333, Until Fri02/26/21, For 30 days [Order 1 End] [Order [...] 1333, For 1 occurrence [Order 4 End] [facility] Medication administered onsite sodium chloride 0.9 % bag 3-20 mL [id number] 01/27/2021 01:32:39 PM EDT mL Intravenous active 3-20 mL, Intr avenous, at 1-999 mL/hr, PRN, For Medication Administration and Line Clearance, Starting on 01/27/21 at 1332, For 30 days
Flush line with sufficient amount of fluid needed based on air commodore recommendation for specific line size. Rate should be run at the same rate as medication in the line being flushed.
[facility] Medication administered onsite 0.4 ML Enoxaparin sodium [...] 10-12 hours prior to removing epidural catheter.
[facility] Medication administered onsite Aspirin 81 MG Chewable Tablet aspirin chewable tablet 81 mg aspirin chewable tablet 81 mg 01/27/2021 09:00:00 AM EDT 81 mg Per G Tube a ctive 81 mg, Per G Tube, Daily Standard, First dose on 01/27/21 at 0900, For 30 doses [facility] Medication administered onsite Acetaminophen 10 MG/ML Injectable Soluti on acetaminophen (OFIRMEV) infusion 1,000 mg acetaminophen (OFIRMEV) infusion 1,000 mg 01/27/2021 02:30:00 AM EDT 1000 mg Intravenous aborted 1,000 mg , Intravenous, Administer over 15 Minutes, Every 8 hours, First dose on 01/27/21 at 0230, For 1 day
Maximum daily dose of acetaminophen from all sources 3,000 mg daily.
[facility] Medication administered onsite Cefazolin 2000 MG Injection ceFAZolin (ANCEF) IVPB 2 g in dextrose (premix) ceFAZolin (ANCEF) IVPB 2 g in dextrose (premix) 01/26/2021 10:30:00 PM EDT 2 g Intravenous completed 2 g, Int ravenous, Administer over 30 Minutes, Every 8 hours, First dose on Fri01/26/21 at 2230, For 16 hours
3 gram for patients weighing >/= to 120 kg
[facility] Medication administered onsite hypromellose 25 MG/ML Ophthalmic Solutio n hydroxypropyl methylcellulose (GONIOSOL) 2.5 % ophthalmic solution 1 drop hydroxypropyl methylcellulose (GONIOSOL) 2.5 % ophthalmic solution 1 drop 01/26/2021 08:34:07 PM EDT 1 [drp] Both Eyes active 1 drop, Francisco J th Eyes, PRN, Dry Eyes, Starting on Fri01/26/21 at 2033, For 30 days [facility] Medication administered onsite ondansetron (ZOFRAN) injection 4 mg [id number] 01/26/2021 07:02:0 5 PM EDT 4 mg Intravenous active 4 mg, In travenous, Every 8 hours PRN, Nausea, Vomiting, Starting on Fri01/26/21 at 1902, For 5 days [facility] Medication administered onsite Calcium Chloride 0.0014 MEQ/ML / Potassi um Chloride 0.004 MEQ/ML / Sodium Chloride 0.103 MEQ/ML / Sodium Lactate 0.028 MEQ/ML Injectable Solution lactated ringers infusion lactated ringers infusion 01/26/2021 06:15:00 PM EDT 100 mL/h Intravenous aborted at 100 m L/hr, Intravenous, Continuous, Starting on Fri01/26/21 at 1815, For 30 days [facility] Medication administered onsite Acetaminophen 10 MG/ML Injectable Soluti on acetaminophen (OFIRMEV) infusion 1,000 mg acetaminophen (OFIRMEV) infusion 1,000 mg 01/26/2021 06:15:00 PM EDT 1000 mg Intravenous completed 1,000 mg , Intravenous, Once, On Fri01/26/21 at 1815, For 1 dose
If NPO and has not yet received an acetaminophen product in prior 4 hours.
[facility] Medication administered onsite Acetaminophen 325 MG / Hydrocodone Bitartrate 5 MG Ora l Tablet Hydrocodone-Acetaminophen 01/25/2021 12:00:00 AM EDT ORAL active MEDENT ([facility], ) Clenpiq Clenpiq 12/20/2020 12:00:00 AM EDT complet ed MEDENT ([facility] ) Bisacodyl 5 MG Delayed Release Oral Tablet [Dulcolax] Dulcol ax 12/20/2020 12:00:00 AM EDT completed MEDENT ([facility] ) Insurance Providers Payer name Policy type / Coverage type Policy ID Covered constitution party ID Covered constitution party's relationship to fry Policy Fry Plan Information MEDICAID [id number] S [id number] [facility] [id number] S [id number] R MEDICARE [id number] S [id number] MEDICARE [id number] S [id number] A [facility] [id number] S [id number] Medicare [place] Medicare Primary [id number] Self [id number] MEDICARE A [id number] Self [id number] Medicaid [employer] Part B [id number] Self [id number] MEDICARE [id number] Other [id number] A MEDICAID [id number] Other [id number] SELF-PAY UNAVAILABLE [place]NA[place]IL[place] BLE MEDICA[place] [id number] S [id number] [place] [id number] SP [id number] MEDICAID [id number] SP [id number] MEDICAID M [id number] S [id number] SELF PAY O [id number] S [id number] ANSI-Medicaid [id number] ANSI-Medicare Part B [id number] ANSI-Medicare Part B [id number] ANSI-Medicaid [id number] MEDICAID [id number] S [id number] MEDICARE [id number] S [id number] A MEDICARE [id number] S [id number] A MCRB [id number] S [id number] A MCRB [id number] S [id number] A [place] MC [id number] S [id number] [place] PROGRESS[employer] [id number] S [id number] [place] PROGRESSIVE MC [id number] S [id number] CHA CARE [id number] S [id number] CHA CARE [id number] S [id number] CHA CARE [id number] S [id number] MEDICAID [id number] S [id number] [place] PROGRESSIVE [id number] S [id number] MEDICARE [id number] S [id number] A MEDICAID [id number] S [id number] SELF PAY ONLY [id number] SP [id number] SELF-PAY [id number] S [id number] MEDICARE [id number] S [id number] [id number] MEDICARE [id number] SP [id number] Q82 SELF-PAY UNAVAILABLE S UNAVAILA BLE SELF PAY ONLY [id number] SP [id number] MEDICARE [id number] SP [id number] Q82 SELF PAY ONLY [id number] SP [id number] MEDICARE [id number] Other [id number] [id number] Problems, Conditions, and Diagnoses Code Display Name Description Problem Type Effective Dates Data Source(s) 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 SITES Diagnosis 06/20/2021 01:21:00 AM EDT [facility] beryl 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, unspeci fied Malignant neoplasm of esophagus, unspecified Diagnosis 01/26/2021 01:22:23 PM EDT [facility] R69 Illness, unspecified Illness, unspecified Diagnosis 01/26/2021 10:16:00 AM EDT [facility] Esophageal mass Esophageal mass Diagnosis 01/26/2021 10:1 6:00 AM EDT [facility] K22.8 Other specified diseases of esophagus OT HER SPECIFIED DISEASES OF ESOPHAGUS Diagnosis 01/18/2021 10:14:00 AM EDT [facility] beryl Z01.818 Encounter for other preprocedural examin ation ENCOUNTER FOR OTHER PREPROCEDURAL EXAMINATION Diagnosis 01/18/2021 10:14:00 AM EDT [facility] K63.89 Other specified diseases of intestine Ot her specified diseases of intestine Diagnosis 01/01/2021 08:55:00 AM EDT [facility] Z01.818 Pre-procedure evaluation check Preop testing Problem 05/29/2021 12:00:00 AM EDT eCW1 ([facility]) N39.0 Urinary tract infectious disease UTI (urinary tract in fection) Problem 05/29/2021 12:00:00 AM EDT eCW1 ([facility]) 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 Problem 05/29/2021 12 :00:00 AM EDT eCW1 ([facility]) I71.4 [id number] Abdominal aortic aneurysm (AAA) without r upture Problem 05/03/2021 12:00:00 AM EDT eCW1 ([facility]) N32.89 [id number] Bladder mass Problem 05/03/2021 12:00:00 AM EDT eCW1 ([facility]) R91.1 [id number] Pulmonary nodule Problem 05/03/2021 12:00:00 AM EDT eCW1 ([facility]) L97.912 [id number] 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 layer exposed Problem 02/09/2021 12:00:00 AM EDT eCW1 ([facility]) N32.89 [id number] Bladder mass Problem 12/20/2020 12:00:00 AM EDT eCW1 ([facility]) K22.8 [id number] Esophageal mass Problem 12/20/2020 12:00:00 AM EDT eCW1 ([facility]) R63.4 [id number] Weight loss Problem 12/20/2020 12:00:00 AM E DT eCW1 ([facility]) I71.4 [id number] Abdominal aortic aneurysm (AAA) without r upture Problem 12/20/2020 12:00:00 AM EDT eCW1 ([facility]) Surgeries/Procedures Procedure Description Date Indications Data Source(s) FINE NEEDLE ASPIRATION W/O IMAGING GUIDANCE 06/27/2021 12:00:00 AM EDT eCW1 ([facility]) FINE NEEDLE ASPIRATION W/O IMAGING GUIDANCE 06/12/2021 12:00:00 AM EDT eCW1 ([facility]) Med: Lidocaine Jelly 2% 6ml Intravesically (Glydo) 05/21/2021 12:00:00 AM EDT eCW1 ([facility]) FINE NEEDLE ASPIRATION W/O IMAGING GUIDANCE 04/26/2021 12:00:00 AM EDT eCW1 ([facility]) FINE NEEDLE ASPIRATION W/O IMAGING GUIDANCE 04/05/2021 12:00:00 AM EDT eCW1 ([facility]) FINE NEEDLE ASPIRATION W/O IMAGING GUIDANCE 03/29/2021 12:00:00 AM EDT eCW1 ([facility]) FINE NEEDLE ASPIRATION W/O IMAGING GUIDANCE 03/22/2021 12:00:00 AM EDT eCW1 ([facility]) FINE NEEDLE ASPIRATION W/O IMAGING GUIDANCE 03/15/2021 12:00:00 AM EDT eCW1 ([facility]) FINE NEEDLE ASPIRATION W/O IMAGING GUIDANCE 03/08/2021 12:00:00 AM EDT eCW1 ([facility]) FINE NEEDLE ASPIRATION W/O IMAGING GUIDANCE 02/28/2021 12:00:00 AM EDT eCW1 ([facility]) FINE NEEDLE ASPIRATION W/O IMAGING GUIDANCE 02/23/2021 12:00:00 AM EDT eCW1 ([facility]) FINE NEEDLE ASPIRATION W/O IMAGING GUIDANCE 02/16/2021 12:00:00 AM EDT eCW1 ([facility]) BLOOD COUNT COMPLETE AUTO&AUTO DIFRNTL WBC COUNT <td>C BC AND DIFFERENTIAL</td><td>Routine</td><td>01/30/2021 5:21 AM EDT</td><td></td><td> </td> 01/30/2021 05:21:00 AM [facility] PHOSPHORUS INORGANIC <td>PHOSPHORUS LEVEL</td><td >Routine</td><td>01/30/2021 5:21 AM EDT</td><td></td><td> </td> 01/30/2021 05:21:00 AM [facility] MAGNESIUM <td>MAGNESIUM LEVEL</td><td> Routine</td><td>01/30/2021 5:21 AM EDT</td><td></td><td> </td> 01/30/2021 05:21:00 AM [facility] BASIC METABOLIC PANEL CALCIUM TOTAL <td>BASIC METABOLI C PANEL</td><td>Routine</td><td>01/30/2021 5:21 AM EDT</td><td></td><td> </td> 01/30/2021 05:21:00 AM [facility] BLOOD COUNT COMPLETE AUTO&AUTO DIFRNTL WBC COUNT <td>C BC AND DIFFERENTIAL</td><td>Routine</td><td>01/29/2021 3:56 AM EDT</td><td></td><td> </td> 01/29/2021 03:56:00 AM [facility] PHOSPHORUS INORGANIC <td>PHOSPHORUS LEVEL</td><td >Routine</td><td>01/29/2021 3:56 AM EDT</td><td></td><td> </td> 01/29/2021 03:56:00 AM [facility] MAGNESIUM <td>MAGNESIUM LEVEL</td><td> Routine</td><td>01/29/2021 3:56 AM EDT</td><td></td><td> </td> 01/29/2021 03:56:00 AM [facility] BASIC METABOLIC PANEL CALCIUM TOTAL <td>BASIC METABOLI C PANEL</td><td>Routine</td><td>01/29/2021 3:56 AM EDT</td><td></td><td> </td> 01/29/2021 03:56:00 AM [facility] BLOOD COUNT COMPLETE AUTO&AUTO DIFRNTL WBC COUNT <td>C BC AND DIFFERENTIAL</td><td>Routine</td><td>01/28/2021 2:11 AM EDT</td><td></td><td> </td> 01/28/2021 02:11:00 AM [facility] PHOSPHORUS INORGANIC <td>PHOSPHORUS LEVEL</td><td >Routine</td><td>01/28/2021 2:11 AM EDT</td><td></td><td> </td> 01/28/2021 02:11:00 AM [facility] MAGNESIUM <td>MAGNESIUM LEVEL</td><td> Routine</td><td>01/28/2021 2:11 AM EDT</td><td></td><td> </td> 01/28/2021 02:11:00 AM [facility] BASIC METABOLIC PANEL CALCIUM TOTAL <td>BASIC METABOLI C PANEL</td><td>Routine</td><td>01/28/2021 2:11 AM EDT</td><td></td><td> </td> 01/28/2021 02:11:00 AM [facility] IAAD EIA HIV-1 AG W/HIV-1&HIV-2 ANTBDY SINGLE <td>HIV AG AB COMBO SCREEN</td><td>Routine</td><td>01/27/2021 4:35 AM EDT</td><td></td><td> </td> 01/27/2021 04:35:00 AM [facility] HEPATITIS C ANTIBODY <td>HEPATITIS C ANTIBODY</td ><td>Routine</td><td>01/27/2021 4:35 AM EDT</td><td></td><td> </td> 01/27/2021 04:35:00 AM [facility] BLOOD COUNT COMPLETE AUTO&AUTO DIFRNTL WBC COUNT <td>C BC AND DIFFERENTIAL</td><td>Routine</td><td>01/27/2021 4:35 AM EDT</td><td></td><td> </td> 01/27/2021 04:35:00 AM [facility] PHOSPHORUS INORGANIC <td>PHOSPHORUS LEVEL</td><td >Routine</td><td>01/27/2021 4:35 AM EDT</td><td></td><td> </td> 01/27/2021 04:35:00 AM [facility] MAGNESIUM <td>MAGNESIUM LEVEL</td><td> Routine</td><td>01/27/2021 4:35 AM EDT</td><td></td><td> </td> 01/27/2021 04:35:00 AM [facility] BASIC METABOLIC PANEL CALCIUM TOTAL <td>BASIC METABOLI C PANEL</td><td>Routine</td><td>01/27/2021 4:35 AM EDT</td><td></td><td> </td> 01/27/2021 04:35:00 AM [facility] XR CHEST FRONTAL ONLY [id number] <td>XR CHEST FRONTAL ONLY [id number]</td><td>STAT</td><td>01/26/2021 8:57 PM EDT</td><td></td><td> </td> 01/26/2021 08:57:00 PM [facility] FLUORO CENTRAL VENOUS ACCESS DEV PLACEMENT <td>FLUORO GUID VENOUS ACC PROC [id number]</td><td>Routine</td><td>01/26/2021 3:20 PM EDT</td><td> Diagnosis unknown</td><td> </td> 01/26/2021 03:20:00 PM EDT Diagnosis unknown [facility] Diagnosis unknown REPLACEMENT OF GASTRO-JEJUNOSTOMY TUBE, PERCUTANEOUS, UNDER FLUOROSCOPIC GUIDANCE <td>REPLACEMENT OF GASTRO-JEJUNOSTOMY TU BE, PERCUTANEOUS, UNDER FLUOROSCOPIC GUIDANCE</td><td></td><td>01/26/2021 2:20 PM EDT</td><td> Esophageal mass</td><td></td> 01/26/2021 02:20:00 PM EDT - 01/26/2021 06:20:00 PM EDT Esophageal mass [facility] Esophageal mass UPPER GI ENDOSCOPY W/INSERTION, GUIDE WIRE/DILATION OV ER GUIDE WIRE <td>UPPER GI ENDOSCOPY W/INSERTION, GUIDE WIRE/DILATION OVER GUIDE WIRE</td><td></td><td>01/26/2021 2:20 PM EDT</td><td> Esophageal mass</td><td></td> 01/26/2021 02:20:00 PM EDT - 01/26/2021 06:20:00 PM EDT Esophageal mass [facility] Esophageal mass Endoscopy Upper GI Biopsy 12/26/2020 12:00:00 AM EDT [facility] ([facility], ) Colonoscopy Flexible Proximal To Splenic Flexure Diagnostic W/Or 12/26/2020 12:00:00 AM EDT [facility] ([facility], ) Results ID Date Data Source [id number] 06/25/2021 12:00:00 PM EDT [facility] Name Value Range Interpretation Code Description Data Macie rce(s) Supporting Document(s) LCOVID-19 RHEONIX ASSAY Negative [facility] This lab was ordered by [facility] and reported by [facility]. ID Date Data Source [id number] 06/26/2021 06:37:00 PM EDT [facility] FAX TO FAHAD VILLA [phone] Name Value Range Interpretation Code Description Data Macie rce(s) Supporting Document(s) COVID19 RHEONIX Negative NEGATIVE N [facility] The Rheonix COVID-19 MDx Assay is an end point RT-PCR assayintended for the qualitative detection of nucleic acid kgpeIRWZ-XtL-1 virus. Positive results are indicative of thepresence of SARS-CoV-2 RNA; clinical correlation withpatient history and other diagnostic information isnecessary to determine patient infection status. Negativeresults do not preclude SARS-CoV-2 infection and should notbe used as the sole basis for patient management decisions. The TrenDemon MDx Assay is only for use under the Food andDrug Administration's Emergency Use Authorization. ID Date Data Source [id number] 06/20/2021 10:20:00 AM EDT [facility] Exam Number: [id number] OF EXAMINATIO N: 06/20/2021 8:24 EDTPET/CT HEAD [...] rce(s) Supporting Document(s) ID Date Data Source [id number] 04/18/2021 08:44:00 PM EDT [facility] Name Value Range Interpretation Code Description Data Macie rce(s) Supporting Document(s) SARS coronavirus 2 RNA [Presence] in Res piratory specimen by RAN with probe detection NEGATIVE [facility] This lab was ordered by [facility] a nd reported by [facility]. ID Date Data Source [id number] 02/02/2021 11:14:00 AM EDT [facility] Exam Number: [id number] Reported By: Wero BAHENA M.D. Signed By: Gregory BAHENA M.D. Name Value Range Interpretation Code Description Data Macie rce(s) Supporting Document(s) ID Date Data Source [id number] 01/31/2021 05:40:12 PM EDT [facility] Name Value Range Interpretation Code Description Data Macie rce(s) Supporting Document(s) Discharge Summary [facility] LNLZHi8nCfMTNzTb88/LJIdwZZNhb8MwUNujIPa3XAmtAGPkN5XjDWD5jR4vBRK2DObKJxRrFbQoGfUm [facility] [file] gztwPZ8VG2Co2yos4WFWZnsC9msfsnVU1S8Zn/G/Meléndez [file] AgICAgICAgICAgICAgICAgICAgICAgICAgICAgICAg ICAgICAgICAgICAgICAgICAgICAgICAgICAgICAgICAgICAgICAgICAgICAgICAgICAgICAgICAgICAg DQogICAgICAgICAgICAgICAgICAgICAgICAgICAgICAgICAgICAgICAgICAgICAgICAgICAgICAgICAg ICAgICAgICAgICAgICAgICAgICAgICAgICAgICAgIC AgICAgICAgICAgDQogICAgICAgICAgICAgICAgICAgICAgICAgICAgICAgICAgICAgICAgICAgICAgIC AgICAgICAgICAgICAgICAgICAgICAgICAgICAgICAgICAgICAgICAgICAgICAgICAgICAgDQogICAgIC AgICAgICAgICAgICAgICAgICAgICAgICAgICAgICAg ICAgICAgICAgICAgICAgICAgICAgICAgICAgICAgICAgICAgICAgICAgICAgICAgICAgICAgICAgICAg ICAgDQogICAgICAgICAgICAgICAgICAgICAgICAgICAgICAgICAgICAgICAgICAgICAgICAgICAgICAg ICAgICAgICAgICAgICAgICAgICAgICAgICAgICAgIC AgICAgICAgICAgICAgDQogICAgICAgICAgICAgICAgICAgICAgICAgICAgICAgICAgICAgICAgICAgIC AgICAgICAgICAgICAgICAgICAgICAgICAgICAgICAgICAgICAgICAgICAgICAgICAgICAgICAgDQogIC AgICAgICAgICAgICAgICAgICAgICAgICAgICAgICAg ICAgICAgICAgICAgICAgICAgICAgICAgICAgICAgICAgICAgICAgICAgICAgICAgICAgICAgICAgICAg ICAgICAgDQogICAgICAgICAgICAgICAgICAgICAgICAgICAgICAgICAgICAgICAgICAgICAgICAgICAg ICAgICAgICAgICAgICAgICAgICAgICAgICAgICAgIC AgICAgICAgICAgICAgICAgDQogICAgICAgICAgICAgICAgICAgICAgICAgICAgICAgICAgICAgICAgIC AgICAgICAgICAgICAgICAgICAgICAgICAgICAgICAgICAgICAgICAgICAgICAgICAgICAgICAgICAgDQ ogICAgICAgICAgICAgICAgICAgICAgICAgICAgICAg ICAgICAgICAgICAgICAgICAgICAgICAgICAgICAgICAgICAgICAgICAgICAgICAgICAgICAgICAgICAg FYRwQEQxSIZdCLp4K2shKDZjATFjQZ9tIZs9Fn3+FMrEObKqGAW3inAqiR5LUH7yx9VwMOgpWYYeo0St SPj3IM5ACBRuGAtvUC9JYZalvx8KYIOyMOFwnWUAa2 reUfHlOLL1YZXiVokjYX7XCZAhC6fgycDhKRHgEZKBWCuvCGYWNFchHNPAJF8IUzYaH2IauH06XSGUAm 4+DFivxrJyHtqCNgXtENOmg3XeUDd1EH3VUCLnRpods3CeXdDdYJKPHUawRY4GDVN1IWGsIXHyEn6GPN EoU080jbLgCG9YGw8MKcEnEN2wre1YHwUgGSIlVgpH Dmm8XFbyRH2GsTSgUQsYbFPwtDBiF7KoH2PxwUCxyFPcuTFXKCYisZXZJUc2xvMkRY3OUIJ2TNRvJR2h MZBvNEHkOfW1AFQFMT7JCLCpLABkqWRvCJFuZRCTNC9KMDnyHFT9OFSutjJpgGNeEOxdFI4CICQxbuNp MzEgMCBSDQo+Li8SIT3gj5SpEThwAeYtGH3hkx5QRL dFFvVlE9N8wAQlN4L9BMptJl3PAIGeMLBzOmilJIBNEYihDP5CGB2itdJ2LQ9CzGQfYGPdTGRjpIGdOB q6Z49poGVgVDkhKI9TEHI+Robert+Ab7XTRKrQCGuRLRmKiTlDAQCGtEhQ7AgB1KAf8ZkY3JrCA77wRvjtn FpXRaxJJ9DCZ1bQSGbRGABKE0EcMTcqV5xjhAmCVDx AMDIRyQmW60oeZLxMEFaYQJrLGHuSj1YUELnR2HokpDqkLrxnwCrPYRlDGTABA2ZKYtsglXitPWuaJib VZ16cNcrXC3INb2NPgTbCP2tpn7EgGUuIa4TIYMpIU9FPQNoOXFpAISxOAC1GSApPwDiKCtaVPCkTVZm ZFA6RFTjOCQaNY4TKdWcBVWxGwDpINsjQCTnLERlar 6XQOUtMYFsDkZ1ILKzNNHhHGRjHOwsCZQuZGEsMAB7YBHfKOJcZI6VMgCsUCQzKUGsPyKhQKTpEISuvv 1TPGBmCZJoFjOnIjPyXQJeWLEzKWsuEMNsKYT9AWh5XUDgGCVsVA8CMqUjDOSfAHnhRFNbXIQmWBNvwo 3ANJNhJCKgNEU3DFTtIAMfGZMqXZfzFLVpIHW6NoB4 NDSyCNNcEH9GIxQvEGHbYNYgMgfrQKGhBMMlcf7QEHAjFHBaLOJbSKOgZPTqXPWiQCwpWWGvOOMhMfG3 INDwYZFcXR5QXaDxFORxOQY3VqlbAHGcYKMfcz9JRZUuILNaSVo4DHUxZVIuXGKdDRuiQUBnWPRyXMG3 RMXtJMUkJD7QUyFkIZOqZQU3NMvoCTHcJZZddi9SYK MpBPDrOiKaJAOhDRCwBPQlBHimGEVvOKBmAkq5BNOtKZAdHY2UXpKqZTXxPqX2LNUbLQNbJMKjee1GPC LlRWAsRHJlIIJgTFCkVPKhAZcxRLDyDPF3BmJ7KYWtYUOhYO4JHeWbJIWnUmA0AKurWSHbYWSuhh1KJY VcGTXyKXX6PRAkBMUbXPNxPTgnTSHoCDWwFFLwRZNv VQYcDG0BPfAxDEXkQfX3GlpoZBXvGMEddp9TYYDgQNOwBTi3RFOvWICwTICfTZfwNRQcFUVpBcFrILDe XJNeVV3YJuPyDSZwKeHdSiphVQNaEKKdcd0AGAJnJVRrQUqpXIUsSWNcCIUyFAurNWQwQCNgOxSoOPVi KKLtYO0RObDjBRHeAsLdFmBsELMpQNYwrv7TIADkLQ WtOcC5VOBfGOUdOCNsBQg3vkMvaZIgQDb4ET6RP2HlgyCwTkFKZp2Dv986AAEtNZRrLr6QB9epWm5tKO SfBNALOe8WQUc9EuCpKzT8IXVgIOVrBTN5OyRnMYX9YdNpYcFoJ1QkZSR+XFt5RSAeJlj9RpFmAhApSO KcDnBdJuXdJsU4UaXoJKMyOn6fFXMNUa4+OZqxeJCngNtgTKMQWiIjBaF5ZIckNWYNKw2X ID Date Data Source [id number] 01/30/2021 04:01:20 PM EDT [facility] Name Value Range Interpretation Code Description Data Macie rce(s) Supporting Document(s) Progress Note [facility] EZGTVw4bJjZLToEy45/PIKxnFJOtx3EgIThaJOs8NWneWGXaS3UnZZB6zB6kAKC2YUjPIySyGsWfJyTi lbm [file] EdIzLsNJq7HaT7KKTzVZukDgV0LkcxHZf+IF0gDQ o+Is3Rd9OvfdI4qoTyPKhfPBSeGH4SPXXDZ3QHZs== ID Date Data Source [id number] 01/30/2021 01:03:18 PM EDT [facility] Name Value Range Interpretation Code Description Data Macie rce(s) Supporting Document(s) Consultation [facility] PURSJq7jQeVTQkTt13/KWQgbGTMzv1RnRXriTMy1JKpbMQKhL6KyDDK4nV3nFUH7GWmHQaSiSuXzAmIj lbm [file] ICAgICAgICAgICAgICAgICAgICAgICAgICAgICAgIC AgICAgICAgICAgICAgICAgICAgICAgICAgICAgICAgICANCiAgICAgICAgICAgICAgICAgICAgICAgIC AgICAgICAgICAgICAgICAgICAgICAgICAgICAgICAgICAgICAgICAgICAgICAgICAgICAgICAgICAgIC AgICAgICAgICAgICAgICANCiAgICAgICAgICAgICAg ICAgICAgICAgICAgICAgICAgICAgICAgICAgICAgICAgICAgICAgICAgICAgICAgICAgICAgICAgICAg ICAgICAgICAgICAgICAgICAgICAgICAgICANCiAgICAgICAgICAgICAgICAgICAgICAgICAgICAgICAg ICAgICAgICAgICAgICAgICAgICAgICAgICAgICAgIC AgICAgICAgICAgICAgICAgICAgICAgICAgICAgICAgICAgICANCiAgICAgICAgICAgICAgICAgICAgIC AgICAgICAgICAgICAgICAgICAgICAgICAgICAgICAgICAgICAgICAgICAgICAgICAgICAgICAgICAgIC AgICAgICAgICAgICAgICAgICANCiAgICAgICAgICAg ICAgICAgICAgICAgICAgICAgICAgICAgICAgICAgICAgICAgICAgICAgICAgICAgICAgICAgICAgICAg ICAgICAgICAgICAgICAgICAgICAgICAgICAgICANCiAgICAgICAgICAgICAgICAgICAgICAgICAgICAg ICAgICAgICAgICAgICAgICAgICAgICAgICAgICAgIC AgICAgICAgICAgICAgICAgICAgICAgICAgICAgICAgICAgICAgICANCiAgICAgICAgICAgICAgICAgIC AgICAgICAgICAgICAgICAgICAgICAgICAgICAgICAgICAgICAgICAgICAgICAgICAgICAgICAgICAgIC AgICAgICAgICAgICAgICAgICAgICANCiAgICAgICAg ICAgICAgICAgICAgICAgICAgICAgICAgICAgICAgICAgICAgICAgICAgICAgICAgICAgICAgICAgICAg ICAgICAgICAgICAgICAgICAgICAgICAgICAgICAgICANCiAgICAgICAgICAgICAgICAgICAgICAgICAg ICAgICAgICAgICAgICAgICAgICAgICAgICAgICAgIC AgICAgICAgICAgICAgICAgICAgICAgICAgICAgICAgICAgICAgICAgICANCjw/kPMsR2jyiXHjjqV5M4 xoBs6ZZp5GFP2cc6ZxGONfXBljzuBdCjzSMwCsFBHwZzyDMty2SCuoJJ2BsYGoB5CvR9MeZUfaCD7CYZ TnHOMsdAKvINJoNNUkOmL8KIRnSFrdSS5DjLUhEWsj UBIfTKBzVlVaKHXrYRQwKQIiTB8SZXQbX396xmIrDm8MGc1ZIdLmGT9bya2NSdSxQUFnIzlEWnz5ELqb JG3XfJAhhDDbFBThEPBIPwGeP4tjh0OqPzXhCQHNNOyhSC1Jc3PcgGDaVXr+Xp9KFV7td6ZjUCjlAPMu RN7hlc8XQHbJIwFlA7FhcJmuJGAbnaU3vFIjCIW1ZR XdBnbsMOCvP4XyGTdeFuDrHWXkHl0mUtIuPyVsJHR6IRGfBA6fDShqCO9AJPB2WZewFHDmWAKuR1hQOc LxSZDrAsQzeClbXE4AJrGrA2PbstWkbNWcFeIwPBSXIc4+UOxljdYwWsqHZgI5PIVhx4GvOFw7RC3FRS McBRqzMN3NIRUtbI9kGWkbAT4AMmPySNMdDWOFPkMo L22jfHUgNHf4X8CiDrFfZHVdNxwnUUSbFShuOlDoGINoSfSpMDsmQD9+ID4+NHazFS3QXUqgjgEvYNCs Ga7AKOJcUVXvNC8qCHDnTSQqW2C6xGcqDCGEHvQaS7pfrnvsUL8zLCEhL420mGmojnHlZSRuJOLwFh6X POJmHAP6EDJgrPQdBtWgHQGICCzsCZ6FkFVeIXA8zQ 1qBJhtDREjMZOaE5lLOeDscOzkCJ44dTwyzkRfsPErZFh+Jn8RKY9hi2AwHIm2lcKsPAikYGA2UWegRI SeALNsXEHaHNI4HTQ9BQYICyFcAWGbCQKsDHrfWGJrMFQyfl6XKEQePLHbFfK5AxXyIUIpZSKuQSwoZM WbJQN0RokrDEYaEQDfQA4JGzCjONOrAWDiFIxqKRWc GXEerb0GQQOiTPKnYfXrBLZwXNCsZTBpLZrhOBYlHGNuMGYyYVQaNRGqIU6QIcIoAOQzMSMaJYDpGVZk RNDkbp0MZCHoPXDrBdZ8RMFePYZoNPQvAUlcQZUwAQT2ZVOpNVBdYIVmIY3MEoKbUYLbAJlcWOCeDEJc WNAfdm4NXBKwFDAqZVCtZJHmLNMqHGYhCWkoIJHtOF H9GzWvDUHaDEHnZR9TMgHyIMVlQXgzKJEoNLNqGYHpph7OJLIqTWAdEUA1FoTtHXOtUURzGTkpXMJgON FuCBD6MEKbKEOpTC0JNsWhPPCaNAN9LBVsCLBhUJRvni6SWJUiXSLhIpDvFMPoYQPfXBHnNEooLIUcFL UtRAM8ISMvKIWbSJ9ZRvRbMFXfOeD8LLGqOZDxWRBf fl1EZQWmQFYcYsy5IWPmRZBhKRLgWVsaLCZaTGRaFWPlEEUoHJDeAE8IWfHmJJUjVgQ0NOYfWKMpANXy nt5JZTMlSBMjZMg3OLCxKAIsMBYjZJejDBVpVSJ6UULwIYFeHNVmIM6QKgJrKNCgMpGfUETmGSJeTRTw jl5HdTChzWwiuu8WLKhWXz3RtBhbRWR2SXccCr5tcA TrBHRdUWYJHd3XnoMaNSUeYGDWCJmeVLTvJQXiDWF5LXQ9DgTwDlM1DQWiFBU3VbN5ZkFjHhXnGWLmRz I6VOAjQnQsLPFgUcM3HXW2XjV2JnRrWdKpGWJmNIB3OTL+DX4sFEd+Ux6Lt3FgyxE3oaJeGCqlSLN6Di 2YZYAXK3SJIx== ID Date Data Source [id number] 01/30/2021 05:59:48 AM EDT [facility] Name Value Range Interpretation Code Description Data Macie rce(s) Supporting Document(s) Leukocytes [#/volume] in Blood by Automated count 7.2 10*3/uL 4-10 [facility] Erythrocytes [#/volume] in Blood by Automated count 3.47 10*6/uL 4.6- 6.1 L [facility] Hemoglobin [Mass/volume] in Blood 10.1 g/dL 13.5-18 L [facility] Hematocrit [Volume Fraction] of Blood by Automated count 30.6 % 4 1-53 L [facility] Erythrocyte mean corpuscular volume [Entitic volume] by Auto mated count 88.2 fL 80-96 [facility] Erythrocyte mean corpuscular hemoglobin [Entitic mass] by Automated count 29.2 pg 27-33 [facility] Erythrocyte mean corpuscular hemoglobin concentration [Mass/volume] by Automated count 33.1 g/dL 32.0-36.[facility] distribution width [Ratio] by Automated count 14.3 % 11.5-14.5 [facility] Platelets [#/volume] in Blood by Automated count 293 10*3/uL 150-400 [facility] Differential cell count method - Blood [facility] Neutrophils/100 leukocytes in Blood by Automated count 65 % [facility] Lymphocytes/100 leukocytes in Blood by Automated count 23 % [facility] Monocytes/100 leukocytes in Blood by Automated count 8 % [facility] Eosinophils/100 leukocytes in Blood by Automated count 3 % [facility] Basophils/100 leukocytes in Blood by Automated count 1 % [facility] Neutrophils [#/volume] in Blood by Automated count 4.68 10*3/uL 1.8-7 .0 [facility] Lymphocytes [#/volume] in Blood by Automated count 1.65 10*3/uL 1.2-4 .0 [facility] Monocytes [#/volume] in Blood by Automated count 0.56 10*3/uL 0-0.8 [facility] Eosinophils [#/volume] in Blood by Automated count 0.23 10*3/uL 0-0.5 [facility] Basophils [#/volume] in Blood by Automated count 0.05 10*3/uL 0-0.2 [facility] Nucleated erythrocytes/100 leukocytes [Ratio] in Blood by Automated count 0 /100{WBCs} 0-0 [facility] ID Date Data Source [id number] 01/30/2021 06:10:44 AM EDT [facility] Name Value Range Interpretation Code Description Data Macie rce(s) Supporting Document(s) Bicarbonate [Moles/volume] in Serum 26 mmol/L 22-29 [facility] Chloride [Moles/volume] in Serum or Plasma 102 mmol/L 98-107 [facility] Creatinine [Mass/volume] in Serum or Plasma 0.67 mg/dL 0.70-1.20 L [facility] Glucose [Mass/volume] in Serum or Plasma 101 mg/dL 70-140 [facility] Potassium [Moles/volume] in Serum or Plasma 4.2 mmol/L 3.4-5.1 [facility] Sodium [Moles/volume] in Serum or Plasma 133 mmol/L 136-145 L [facility] Urea nitrogen [Mass/volume] in Serum or Plasma 19 mg/dL 8-23 [facility] Anion gap 3 in Serum or Plasma 5 mmol/L 8-15 L [facility] Osmolality of Serum or Plasma by calculation 279 mosm/kg 275-300 [facility] Creatinine/Urea nitrogen [Mass Ratio] in Serum or Plasma 28 [facility] Calcium [Mass/volume] in Serum or Plasma 9.1 mg/dL 8.8-10.2 [facility] Glomerular filtration rate/1.73 sq M pre dicted among non-blacks [Volume Rate/Area] in Serum or Plasma by Creatinine-based formula (MDRD) >6 0 [facility] Glomerular filtration rate/1.73 sq M pre dicted among blacks [Volume Rate/Area] in Serum or Plasma by Creatinine-based formula (MDRD) >60 [facility] ID Date Data Source [id number] 01/30/2021 06:10:44 AM [facility] Name Value Range Interpretation Code Description Data Macie rce(s) Supporting Document(s) Magnesium [Mass/volume] in Serum or Plasma 1.9 mg/dL 1.6-2.4 [facility] ID Date Data Source [id number] 01/30/2021 06:10:44 AM [facility] Name Value Range Interpretation Code Description Data Macie rce(s) Supporting Document(s) Phosphate [Mass/volume] in Serum or Plasma 3.2 mg/dL 2.5-4.5 [facility] ID Date Data Source [id number] 01/29/2021 04:20:35 AM [facility] Value Range Interpretation Code Description Data Macie rce(s) Supporting Document(s) Leukocytes [#/volume] in Blood by Automated count 7.2 10*3/uL 4-10 [facility] Erythrocytes [#/volume] in Blood by Automated count 3.39 10*6/uL 4.6- 6.1 L [facility] Hemoglobin [Mass/volume] in Blood 9.9 g/dL 13.5-18 L [facility] Hematocrit [Volume Fraction] of Blood by Automated count 29.7 % 4 1-53 L [facility] Erythrocyte mean corpuscular volume [Entitic volume] by Auto mated count 87.8 fL 80-96 [facility] Erythrocyte mean corpuscular hemoglobin [Entitic mass] by Automated count 29.3 pg 27-33 [facility] Erythrocyte mean corpuscular hemoglobin concentration [Mass/volume] by Automated count 33.4 g/dL 32.0-36.0 [facility] E[facility]throcyte distribution width [Ratio] by Automated count 14.2 % 11.5-14.5 [facility] Platelets [#/volume] in Blood by Automated count 271 10*3/uL 150-400 [facility] Differential cell count method - Blood [facility] Neutrophils/100 leukocytes in Blood by Automated count 66 % [facility] Lymphocytes/100 leukocytes in Blood by Automated count 21 % [facility] Monocytes/100 leukocytes in Blood by Automated count 10 % [facility] Eosinophils/100 leukocytes in Blood by Automated count 2 % [facility] Basophils/100 leukocytes in Blood by Automated count 1 % [facility] Neutrophils [#/volume] in Blood by Automated count 4.87 10*3/uL 1.8-7 .0 [facility] Lymphocytes [#/volume] in Blood by Automated count 1.49 10*3/uL 1.2-4 .0 [facility] Monocytes [#/volume] in Blood by Automated count 0.69 10*3/uL 0-0.8 [facility] Eosinophils [#/volume] in Blood by Automated count 0.11 10*3/uL 0-0.5 [facility] Basophils [#/volume] in Blood by Automated count 0.07 10*3/uL 0-0.2 [facility] Nucleated erythrocytes/100 leukocytes [Ratio] in Blood by Automated count 0 /100{WBCs} 0-0 [facility] ID Date Data Source [id number] 01/29/2021 04:39:35 AM EDT [facility] Name Value Range Interpretation Code Description Data Macie rce(s) Supporting Document(s) Bicarbonate [Moles/volume] in Serum 24 mmol/L 22-29 [facility] Chloride [Moles/volume] in Serum or Plasma 100 mmol/L 98-107 [facility] Creatinine [Mass/volume] in Serum or Plasma 0.65 mg/dL 0.70-1.20 L [facility] Glucose [Mass/volume] in Serum or Plasma 102 mg/dL 70-140 [facility] Potassium [Moles/volume] in Serum or Plasma 3.9 mmol/L 3.4-5.1 [facility] Sodium [Moles/volume] in Serum or Plasma 134 mmol/L 136-145 L [facility] Urea nitrogen [Mass/volume] in Serum or Plasma 15 mg/dL 8-23 [facility] Anion gap 3 in Serum or Plasma 10 mmol/L 8-15 [facility] Osmolality of Serum or Plasma by calculation 278 mosm/kg 275-300 [facility] Creatinine/Urea nitrogen [Mass Ratio] in Serum or Plasma 23 [facility] Calcium [Mass/volume] in Serum or Plasma 8.8 mg/dL 8.8-10.2 [facility] Glomerular filtration rate/1.73 sq M pre dicted among non-blacks [Volume Rate/Area] in Serum or Plasma by Creatinine-based formula (MDRD) >6 0 [facility] Glomerular filtration rate/1.73 sq M pre dicted among blacks [Volume Rate/Area] in Serum or Plasma by Creatinine-based formula (MDRD) >60 [facility] ID Date Data Source [id number] 01/29/2021 04:39:35 AM [facility] Name Value Range Interpretation Code Description Data Macie rce(s) Supporting Document(s) Phosphate [Mass/volume] in Serum or Plasma 2.7 mg/dL 2.5-4.5 [facility] ID Date Data Source [id number] 01/29/2021 04:39:35 AM [facility] Name Value Range Interpretation Code Description Data Macie rce(s) Supporting Document(s) Magnesium [Mass/volume] in Serum or Plasma 1.8 mg/dL 1.6-2.4 [facility] ID Date Data Source [id number] 01/28/2021 02:57:52 AM [facility] Value Range Interpretation Code Description Data Macie rce(s) Supporting Document(s) Leukocytes [#/volume] in Blood by Automated count 5.0 10*3/uL 4-10 [facility] Erythrocytes [#/volume] in Blood by Automated count 3.25 10*6/uL 4.6- 6.1 L [facility] Hemoglobin [Mass/volume] in Blood 9.5 g/dL 13.5-18 L [facility] Hematocrit [Volume Fraction] of Blood by Automated count 28.9 % 4 1-53 L [facility] Erythrocyte mean corpuscular volume [Entitic volume] by Auto mated count 89.0 fL 80-96 [facility] Erythrocyte mean corpuscular hemoglobin [Entitic mass] by Automated count 29.4 pg 27-33 [facility] Erythrocyte mean corpuscular hemoglobin concentration [Mass/volume] by Automated count 33.0 g/dL 32.0-[facility] distribution width [Ratio] by Automated count 14.6 % 11.5-14.5 H [facility] Platelets [#/volume] in Blood by Automated count 234 10*3/uL 150-400 [facility] Differential cell count method - Blood [facility] Neutrophils/100 leukocytes in Blood by Automated count 61 % [facility] Lymphocytes/100 leukocytes in Blood by Automated count 27 % [facility] Monocytes/100 leukocytes in Blood by Automated count 9 % [facility] Eosinophils/100 leukocytes in Blood by Automated count 2 % [facility] Basophils/100 leukocytes in Blood by Automated count 1 % [facility] Neutrophils [#/volume] in Blood by Automated count 3.10 10*3/uL 1.8-7 .0 [facility] Lymphocytes [#/volume] in Blood by Automated count 1.33 10*3/uL 1.2-4 .0 [facility] Monocytes [#/volume] in Blood by Automated count 0.43 10*3/uL 0-0.8 [facility] Eosinophils [#/volume] in Blood by Automated count 0.09 10*3/uL 0-0.5 [facility] Basophils [#/volume] in Blood by Automated count 0.03 10*3/uL 0-0.2 [facility] Nucleated erythrocytes/100 leukocytes [Ratio] in Blood by Automated count 0 /100{WBCs} 0-0 [facility] ID Date Data Source [id number] 01/28/2021 03:19:17 AM EDT [facility] Name Value Range Interpretation Code Description Data Macie rce(s) Supporting Document(s) Bicarbonate [Moles/volume] in Serum 26 mmol/L 22-29 [facility] Chloride [Moles/volume] in Serum or Plasma 103 mmol/L 98-107 [facility] Creatinine [Mass/volume] in Serum or Plasma 0.72 mg/dL 0.70-1.20 [facility] Glucose [Mass/volume] in Serum or Plasma 133 mg/dL 70-140 [facility] Potassium [Moles/volume] in Serum or Plasma 3.8 mmol/L 3.4-5.1 [facility] Sodium [Moles/volume] in Serum or Plasma 137 mmol/L 136-145 [facility] Urea nitrogen [Mass/volume] in Serum or Plasma 17 mg/dL 8-23 [facility] Anion gap 3 in Serum or Plasma 8 mmol/L 8-15 [facility] Osmolality of Serum or Plasma by calculation 287 mosm/kg 275-300 [facility] Creatinine/Urea nitrogen [Mass Ratio] in Serum or Plasma 24 [facility] Calcium [Mass/volume] in Serum or Plasma 8.3 mg/dL 8.8-10.2 L [facility] Glomerular filtration rate/1.73 sq M pre dicted among non-blacks [Volume Rate/Area] in Serum or Plasma by Creatinine-based formula (MDRD) >6 0 [facility] Glomerular filtration rate/1.73 sq M pre dicted among blacks [Volume Rate/Area] in Serum or Plasma by Creatinine-based formula (MDRD) >60 [facility] ID Date Data Source [id number] 01/28/2021 03:19:17 AM [facility] Name Value Range Interpretation Code Description Data Macie rce(s) Supporting Document(s) Magnesium [Mass/volume] in Serum or Plasma 1.8 mg/dL 1.6-2.4 [facility] ID Date Data Source [id number] 01/28/2021 03:19:17 AM [facility] Value Range Interpretation Code Description Data Macie rce(s) Supporting Document(s) Phosphate [Mass/volume] in Serum or Plasma 2.7 mg/dL 2.5-4.5 [facility] ID Date Data Source [id number] 01/27/2021 10:55:41 PM [facility] Value Range Interpretation Code Description Data Macie rce(s) Supporting Document(s) Operative Note [facility] RVEACj1jPaNQWtUk22/UZLufDIHtv9BqMLaeCMk0MRycHVUdX9TjYPK6eF3kJCF2RQvAGyWjXnUyRTJ2 lbm SqEhsRHaGsQUXuSapHWcJtGDcdXbexmPLzNA3MyDQ8IRGyU77kFEOrTWYmV5JfSIW2MVi+Sd0CENTsiI JjMR5WLptB6V9zU9eZVk+/umslpqum0wItHWn+6J3t7KK0O0EG0DjcbWDWVG6CZr4O7q2/WZJtuhG/uK CTsXmyNtFeFdN2Ia2dQNKj8d/+ZXzad5gPuc4//zOM HTO4NH//q9k81pji8yO/zaaLO42ZFIP+Qfqnaz/81H3X0tqalAU7m3PiAuqtXeNIixpTcTSSd/cPF6P7 d+YePf5xc4ceP7iJPbTDqa35mjVjl+bfh0S5Tk4xm5DhoWJrBJd3H9pDyVc0J1h+cc51nWUfXATVu2jP +/4CabfqxOuxGzo++2c82+DDHgvasGKLCk1uS+ZUd/ 92vemGqNgnsbSw4zmm8tt6UgzL3K27hSD5uh8DMDAwrjfYXlgv4/71+HXgm9geZzb9U5gZU24+JZzP/h pF7DHIFq+aCUa+sF7/VtVshRsS6d0X+PPQ88ayercV+y430840TS7XFmLUx+XLERtMW3oQRuKg/0Jph5 2zntsT1SQ1C6jy8GCIYI1HNtdgEspJS6++oJTTLJl8 C2jaHI4Ki4Sts0jCiisBVeTc27nCOS+SmE/Ds/P7/aCpF5EmAgS9vpz5vvO2Yw49Cp+/abbKOJ3NdFXc bB/povPRlaISKiYvCOna/pob+nkYa937/WuI0UWa2D5iD7ZuFXLB/mzTey23HdyBu5Df5WAjjRLhosrq ZSoFIU9a8ObVXJ9y3eaABpffL17oj2U6OKE3zHa/nA 37FB+RMfNXJIfpjHP95eF9XeXCfr52ga2ttuv/udOO9hs4fkgW8EosbNVrPDm8GydlkBM946UW6tYv3/ 3x5DK1/NrmarY+02l8469t03Dmy2ncri729Ul3eEgXOIfoH8qRxa4gvsph1wIu1NMtEDHUCo/v6SgMoI Mandy/nDlEBlokOhwIm+1N5m7lXEo82s73Nhln7WHlgq [file] ICAgICAgICAgICAgICAgICAgICAgICAgICAgICAgICAgICAgICAgICAgICAgICAgICAgICAgICAgICAg BGFvBKNxVSFkCHHcEAFrNQXyUMAjYMXiMEIySWYxPX6BLXVzURUtMTXkNTNtKEAcEAUvRXBjPGYcAICs ICAgICAgICAgICAgICAgICAgICAgICAgICAgICAgIC DjLVSgXZEhZDWeAVAiJMHoWITeWOEiNISlAXNbLQZwIQByBMJjHIXdYM3DQXGxWEAaXLWyNFHsFBGiFN AgICAgICAgICAgICAgICAgICAgICAgICAgICAgICAgICAgICAgICAgICAgICAgICAgICAgICAgICAgIC IbFXUmVZUsMLYqZMAbOAVeDJGtERPdNM6MLBPyQIVh ICAgICAgICAgICAgICAgICAgICAgICAgICAgICAgICAgICAgICAgICAgICAgICAgICAgICAgICAgICAg GSMiNLEtXYMoVSCeDFUsRDHsXFQiRZUsOSBwZISiILWsBG6TUPByIZUjMZYfBHMcVAJaAWGfMDGvYODr ICAgICAgICAgICAgICAgICAgICAgICAgICAgICAgIC FaWRLtIIMnMWAhBRJcZSFcJPVqCRLwEAAyNDEvSVPnYGEyNTHhRTIjEOJqLG6JXQMoYKDeJZEhTRHjZU AgICAgICAgICAgICAgICAgICAgICAgICAgICAgICAgICAgICAgICAgICAgICAgICAgICAgICAgICAgIC QxJTTvPCBeEIEbHBTaTKFvHOPhIJSmSJDgLB3KMYCi ICAgICAgICAgICAgICAgICAgICAgICAgICAgICAgICAgICAgICAgICAgICAgICAgICAgICAgICAgICAg XFPfUEZpLIEpKWUiBAJzKKTgSRTxJSFtDSNlJPGqJJAsVOCaOM4ZASExYUPcMLCfVYTcCLZhFBLvQHHa ICAgICAgICAgICAgICAgICAgICAgICAgICAgICAgIC UjAFDtTJRiSDAzKDIhQUXdLISzDVTnBEToVOOuTVXeBLYbNWMoBYAzUOSsHMYlVA5UWHQbDDXqXUWtYQ AgICAgICAgICAgICAgICAgICAgICAgICAgICAgICAgICAgICAgICAgICAgICAgICAgICAgICAgICAgIC GaQYQgAHRkUFUcRTUtAZCjUHQbPUGeADKgUSQrUK9Y ICAgICAgICAgICAgICAgICAgICAgICAgICAgICAgICAgICAgICAgICAgICAgICAgICAgICAgICAgICAg KRGoOHKfIZClUHTrKTKeKBAzJJKqBWAmVTRuLQXoROCdWADuVNGwTZ5TXM51nNLaf5I4WJSqDM7vrna/ Xk5WAVdaqiOcsYRmIU0VMzNbRR6pgq4DInMrLR2udn 3GDZzINyMfV1T2tFQwRNYoXGPWQhFxC89xTDeiKe06FYjjLPKyFwMyIBq2Tm2TZbGoI3maAEBfNyR9HY WoEtV3PYUeKbG6SNZeJkBlLNriVE0Li9SqwCLqUKq+Jx3NXT7vq5UnXKgxYnEcYS1bfa6TSJqMIhYhA5 UaypD0FCP3SZXdFw0KIRIrEXCxzBVlTWBbEHLTSmXj G4VubU35HYMWCc3+XMnqkqZiXxiXVbI0XPSfe2LhHXt8JN8ICLEyCOm9yEYrO3MojjJ5mTRgFQ0oiREj WamjKTsliQVwlQYYQMNgZ1rgccktHF7uRKVbPF9vNX0rRBLdPRU3CsGaSLFALT2VVCCqCEMleNMuVRDw XURCFH2FVAbtVPS9FDEemzEnfVAcYOebGO8SWGObip QgMjcgMCBSDQo+Eq3KNX0ns2YuEBooWLKcFM4yad7HTIdGDgEkJ2W4aSWjO8L9ZHweQs7PNUEdQQCxIn RvDRHPVBufSB0CCZ3hmlP1BE3PxPUxSNDiDLLwdGBmPMq1K96txKCuLSlsUE5RDYS+Robert+Qb6LWOAhYN ZsRRDwHkFtLVDAPjMdE1AnE6BZk1RvE9NkGA24oOvz qrMgJVauZU9VPL1dYHDjEXMZAW0CwRArqI0ukmFdOpCtPLBAYfHdK00puNVeGALwZGI1KMBgJy0KRJKq T4UvlmDflWlpqjThJNMmPWNVBB5VHTxkysRhlONlsXteTC40kTruOZ6ZEp7DOuVmPD5vpf0PuIFbJe1F BBToTE4AULMhMPYuNGMpRVI5YRPhFkXhQUfdSFFgIT HqWRX2EREwMCGxJG2ZXjMjSERqBNa8UPjrMIBbURGtko9XQVDvVVFsSGAwXbBuCFSyNDZdYMwvKNHvRC UbXPA7KMOxGGKzVN9FKhBiMUDlOVC8AgJyXYVsQQPtmy3SBOJzANAwSXXqVIYxSGRwEEShSRspNZKyCH I3JGtvFITbQXUkNH5XXjBcGNNbREsaWLXeJZUpEICw ou5WIXMxSPMkQML7FQWkMHMpDKNcFGqgKNIjSCJcYjSbSTDlKKQqRL1CJzLaBOVgLJG7KlXaQJEwNSRs ml7RKGWtKINoROh3WKSsCLVbSHStTCfiZEWnAVTcYQGhUBTnMGUhEF8JDpGeWMPdRLBbRKBgOEQnKLCp cz8BDNXrJQUvTxFbIeMwNPPkVDMwEQqhFPFgCWTqZx fvXNJoNFYuKK3XZlQuNVBnPXKpMMPkPYPtQCCkxh3CKQFmCVPuHGA1SdNnXVRiCPCzPKwfKCRqRIF0Yh NyRROzBXXxYW1UKaQzQHSzFWV0TQRbKQEzNCFfdn8MMSMwSYWxRMe4BwJtLRZfBAZhCAxpRYYyGAO0WG ceTGEaBCAwPX1STaKiXSPvDPqsGTKwTMReHOYsje7O JZWxFDYjFjF7EGAdYEUqWJQuQMfwNRAxNFE6UBP9IXZfBXFfOS6YQeWeJBXfKBw1DZSvSKBjGLFcyi7D JGKtALJlAHF2GkAwQNSsLVGqSElnUZDpAEH4NCB9HBFoXTVhJA3ABmGjHSDcOTe8YtYhZQHiHYTolc7Y yGAokEprtv0MUDuAPd2XxChtASBwENauQo9ibFWwJP KzWVWQPo7WyeMbCCVkFAROPHbyGTKeBVF1MKIuGJypNlx1MkPaGWBbSowtViSaZNhmTGOdW4F8WiL5Cd N5ZIG0FSSeZUPuTNX1DmF1U9TdI2CrVqZwIpPkXSE+WF8xEBm+Js5Rk3MpdwQ7rfWqERdmOWccWN6AKL QBB7RQKy== ID Date Data Source [id number] 01/27/2021 12:13:47 PM EDT [facility] Name Value Range Interpretation Code Description Data Macie rce(s) Supporting Document(s) Progress Note [facility] DTDHGp9cIkPXWcKi82/KPGheXDDqe6IqOSqgBZh0ESkgXFCnX6RfGCE0zL4qZFD5XAjZIzGeEfEpUGT6 lbm QnCgxTXiFoSCHlCmnQOtJoVKrvYuwgrYWdNQ1IfZT6FYWcX74mJRFwFUCmC3CuTXKiFDE+Lc6IAMVklA JsQA1LGeuQ9L9ey6eXRv9+gF2GNkjxKiFqx++ImCdwhbXW0vc68CdYfC+LGyA4FehyYKab//ujSMnyTO jjIxkywXuyL3SUYtm2X0MchgRd2W7/jQ04iPwAeX+/ +TNOPdO/MH/3q0e43gm1k52+ZC+MX6gG2sFaZ/I/efjvQbf3Lxs/OCafzRx/yh+mhzEWgF1uHBU17GqB 0cx0xuIpKBmQmI/m5NHB+0Qey1RyB1ZI60su+Mhn3bv6mmeXdhKZyUN0ymkrOfZEQQvljcV5IZj57xQw kSeX0fUPqAXr26ea7bAAgAA1S6bPKSUrtMh17O9r7j aZ+nQ8zc83uqMqPV0sqEL35pZ2t73YZu729nBt9Twa/6xQ8EphvlpX16PA0/Js2L/Vs3hQaeRLbrEMw+ eIC9k/eqczTXKlVvjJDV3syTyGhoKvSiEprz5e2K7UV/Rk6Upy8+p6k11bXtwME6b8xj2Ps+Fv2lWfcj 5xmMpY9R3kSKJBtCL5/D5xci8slq0jVg0L1hj6FJ2+ bCbmWYLLBQsbZO5pLFsGbxVbTSd/QFWS+kN2wrgsvRo1VP220lz4OhDPxSK6Qg+whpt6irlx/Kathleen+Itx [file] ICAgICAgICAgICAgICAgICAgICAgICAgICAgICAgICAgICAgICAgICAgICAgICANCiAgICAgICAgICAg ICAgICAgICAgICAgICAgICAgICAgICAgICAgICAgIC AgICAgICAgICAgICAgICAgICAgICAgICAgICAgICAgICAgICAgICAgICAgICAgICAgICAgICAgICANCi AgICAgICAgICAgICAgICAgICAgICAgICAgICAgICAgICAgICAgICAgICAgICAgICAgICAgICAgICAgIC AgICAgICAgICAgICAgICAgICAgICAgICAgICAgICAg ICAgICAgICANCiAgICAgICAgICAgICAgICAgICAgICAgICAgICAgICAgICAgICAgICAgICAgICAgICAg ICAgICAgICAgICAgICAgICAgICAgICAgICAgICAgICAgICAgICAgICAgICAgICAgICANCiAgICAgICAg ICAgICAgICAgICAgICAgICAgICAgICAgICAgICAgIC AgICAgICAgICAgICAgICAgICAgICAgICAgICAgICAgICAgICAgICAgICAgICAgICAgICAgICAgICAgIC ANCiAgICAgICAgICAgICAgICAgICAgICAgICAgICAgICAgICAgICAgICAgICAgICAgICAgICAgICAgIC AgICAgICAgICAgICAgICAgICAgICAgICAgICAgICAg ICAgICAgICAgICANCiAgICAgICAgICAgICAgICAgICAgICAgICAgICAgICAgICAgICAgICAgICAgICAg ICAgICAgICAgICAgICAgICAgICAgICAgICAgICAgICAgICAgICAgICAgICAgICAgICAgICANCiAgICAg ICAgICAgICAgICAgICAgICAgICAgICAgICAgICAgIC AgICAgICAgICAgICAgICAgICAgICAgICAgICAgICAgICAgICAgICAgICAgICAgICAgICAgICAgICAgIC AgICANCiAgICAgICAgICAgICAgICAgICAgICAgICAgICAgICAgICAgICAgICAgICAgICAgICAgICAgIC AgICAgICAgICAgICAgICAgICAgICAgICAgICAgICAg ICAgICAgICAgICAgICANCiAgICAgICAgICAgICAgICAgICAgICAgICAgICAgICAgICAgICAgICAgICAg ICAgICAgICAgICAgICAgICAgICAgICAgICAgICAgICAgICAgICAgICAgICAgICAgICAgICAgICANCjw/ dSKyL2ipzRGqkgY1L9thSj3GHg0NIC3na2QdIYYsQP mvbkLqVyaRObKqVBLkTyhTMup7SGxvUQ1DvTEeR8PkH0ZnVTlrDA5EHVOgCMVzyGQqWLLmTOHqCmR4FX CaSLcsOV0WqLXhBYitBLOfPTCvCySsAFHcQSVqQMBiQB0AQNHnF853zoVpVu3DJn2ULpAySL5sfi6VTn LuTLHaGdwICfa2UIbhDD9NxDEkcMQdEYYeQGVTQtUh U8oyo6YuEwVeVDIPAZuyAJ1Zg3JwyQYqSXi+Nk0SWT1hb0ZdMOgeGVGiJY5lbk2QOAjSXcInT1LgtVqr ABCvx3yyKVTgJA6ipRAaCAH0MI1rS8odXHrcSGVOaoCoTUNlIGIUOYU4DPRoRmHxRzKdNPHcHSu4QfZP TLpPEsRdE6Cbr1DrWgW4ACCqAtYpRKvyYVNuTrM9TP 52xMejPT2MMYBiPQRzSV64UXSxUWBsPu8PEh0XYyLrVZ7ezr2IBkUhAFEfNbdVYlm0INvbDG1VsVIeK6 AxrDRgf1nWUcDgK5EJIBCmBGXgTm4QUPXhOuKpAPQsVChmJM9cLZSlOIAScKycvxQ2PC7WLY5ldxYpAE 9FRuHwBq3bWr2JFgDdV6IvO7ReICFwKXDMDOprGC2K HHkkBD3bBA9Wk8SXmJDaqZ7van6KTPZaDKEzClargi6HExppH9F4iBheUZCuQsLgHDUGFUaxEX5YMAEg ZPN7ZFTgBcXcMLXHVgTnK80vWQ4CT7Qjy70sHgD1ZMQrMoVkPWzrTL62iJdpsxSzbRCnlMofIO2MIc9+ DQplbmRvYmoNCnhyZWYNCjAgMjYNCjAwMDAwMDAwMD MaKjE3QnBeMi2ETSVhEDIrROMfUhCiUCInBBFjLRjqTPIwMSM0OFF2XJInVXXtCX8YUoFeGKXzQip0Is CsJRCcYGLweg9SGNEuWVScKFT4NkInDZHiHGJuLLwwBEEuAAT4QXi6JZVmXLNqRN8LUpOjXCTjVQI3XM BvNAPnTGFftx5ILPVwEKCbFHWqHYNsZIYcAOMfDWbp HJEmEJX5NkLeNWZvFVPjBC2ESoAiLHDhFQL1HzNlCKWcKBBfqf3KXQPhGUVgAHJiGpReNXGxWJTnDFln SCJvFQVxRFf6WITsZPGvXD9RNiZaQNDcJFCvLSZcSHFoIMFrdr3KUNGxVDXcDuH9EjXpUVSzWFXqAFqi LNJdUHSuWmU0RAYnKFNhTD7OApYyQHAlFLC8VdnjKW NfWZNutr3MOARsRMGjVbwiRjFoXSByGCWpHDqvFIUgAQB7ITxiCFTzMQXvCE2LJwSfVUPuPqXoINbrAN RvJHRbyf3BYZXjQIHlZKRdOyHiFXMqZOJsJIfjQZZuRGH4ESP2UQHnBPUeYI5LZpCfQDXuZtI5BUHqSR HzUJHgtj8OOIRmYSMtAsJ0OfKhKZNmXXYvAWhdFPRl HTP0FISbIFJmOYDyHE7AHhDaSWQaGqj1FBXyAVEtSOHibz5ZZVUbKSAcSGX0HGHaEVPbJKGhLHv4jbNf aSPxGEn0SZ1IT1ZulhVaQrGBRn9Yu160IQS2JAUuRr7QC0dbHd4iFKFiCRFXZq4MAVr9C0C7ZNB9CIXc VSG9UtH7HNrnQ0SrPFVrLTXlWBJ0QLZ+IDwzZjYwZT HuLpMqQpV1GWl7EIBcVoOjFJVsREPwIjeyBU7uVNDYCl4+XNadsSRhzGqyZNQVFwV7MbF9ZUqfEAZURb 0K ID Date Data Source [id number] 01/27/2021 05:50:35 AM EDT [facility] Name Value Range Interpretation Code Description Data Macie rce(s) Supporting Document(s) HIV 1+2 Ab+HIV1 p24 Ag [Presence] in Serum or Plasma by Immu noassay Non Reactive [facility] Negative for HIV-1 p24 antigenand HIV-1/ HIV-2 antibodies. Nolaboratory evidence of HIVinfection. ID Date Data Source [id number] 01/27/2021 08:28:52 AM EDT [facility] Name Value Range Interpretation Code Description Data Macie rce(s) Supporting Document(s) Hepatitis C virus Ab [Presence] in Serum or Plasma by Immuno assay Non Reactive [facility] No serological evidence of active infect ion. If recent exposure is suspected, test for HCV RNA. ID Date Data Source [id number] 01/27/2021 05:21:27 AM [facility] Name Value Range Interpretation Code Description Data Macie rce(s) Supporting Document(s) Leukocytes [#/volume] in Blood by Automated count 10.7 10*3/uL 4-10 H [facility] Erythrocytes [#/volume] in Blood by Automated count 3.22 10*6/uL 4.6- 6.1 L [facility] Hemoglobin [Mass/volume] in Blood 9.5 g/dL 13.5-18 L [facility] Hematocrit [Volume Fraction] of Blood by Automated count 28.4 % 4 1-53 L [facility] Erythrocyte mean corpuscular volume [Entitic volume] by Auto mated count 88.4 fL 80-96 [facility] Erythrocyte mean corpuscular hemoglobin [Entitic mass] by Automated count 29.4 pg 27-33 [facility] Erythrocyte mean corpuscular hemoglobin concentration [Mass/volume] by Automated count 33.3 g/dL [facility].0-[facility] distribution width [Ratio] by Automated count 14.8 % 11.5-14.5 H [facility] Platelets [#/volume] in Blood by Automated count 239 10*3/uL 150-400 [facility] Differential cell count method - Blood [facility] Neutrophils/100 leukocytes in Blood by Automated count 84 % [facility] Lymphocytes/100 leukocytes in Blood by Automated count 10 % [facility] Monocytes/100 leukocytes in Blood by Automated count 6 % [facility] Eosinophils/100 leukocytes in Blood by Automated count 0 % [facility] Basophils/100 leukocytes in Blood by Automated count 0 % [facility] Neutrophils [#/volume] in Blood by Automated count 9.02 10*3/uL 1.8-7 .0 H [facility] Lymphocytes [#/volume] in Blood by Automated count 1.05 10*3/uL 1.2-4 .0 L [facility] Monocytes [#/volume] in Blood by Automated count 0.67 10*3/uL 0-0.8 [facility] Eosinophils [#/volume] in Blood by Automated count 0.00 10*3/uL 0-0.5 [facility] Basophils [#/volume] in Blood by Automated count 0.01 10*3/uL 0-0.2 [facility] Nucleated erythrocytes/100 leukocytes [Ratio] in Blood by Automated count 0 /100{WBCs} 0-0 [facility] ID Date Data Source [id number] 01/27/2021 05:37:01 AM T [facility] Name Value Range Interpretation Code Description Data Macie rce(s) Supporting Document(s) Bicarbonate [Moles/volume] in Serum 22 mmol/L -29 [facility] Chloride [Moles/volume] in Serum or Plasma 100 mmol/L 98-107 [facility] Creatinine [Mass/volume] in Serum or Plasma 0.74 mg/dL 0.70-1.20 [facility] Glucose [Mass/volume] in Serum or Plasma 122 mg/dL 70-140 [facility] Potassium [Moles/volume] in Serum or Plasma 4.2 mmol/L 3.4-5.1 [facility] Sodium [Moles/volume] in Serum or Plasma 131 mmol/L 136-145 L [facility] Urea nitrogen [Mass/volume] in Serum or Plasma 24 mg/dL 8-23 H [facility] Anion gap 3 in Serum or Plasma 9 mmol/L 8-15 [facility] Osmolality of Serum or Plasma by calculation 277 mosm/kg 275-300 [facility] Creatinine/Urea nitrogen [Mass Ratio] in Serum or Plasma 33 [facility] Calcium [Mass/volume] in Serum or Plasma 8.2 mg/dL 8.8-10.2 L [facility] Glomerular filtration rate/1.73 sq M pre dicted among non-blacks [Volume Rate/Area] in Serum or Plasma by Creatinine-based formula (MDRD) >6 0 [facility] Glomerular filtration rate/1.73 sq M pre dicted among blacks [Volume Rate/Area] in Serum or Plasma by Creatinine-based formula (MDRD) >60 [facility] ID Date Data Source [id number] 01/27/2021 05:37:01 AM [facility] Name Value Range Interpretation Code Description Data Macie rce(s) Supporting Document(s) Magnesium [Mass/volume] in Serum or Plasma 1.8 mg/dL 1.6-2.4 [facility] ID Date Data Source [id number] 01/27/2021 05:37:01 AM [facility] Name Value Range Interpretation Code Description Data Macie rce(s) Supporting Document(s) Phosphate [Mass/volume] in Serum or Plasma 3.7 mg/dL 2.5-4.5 [facility] ID Date Data Source [id number] 01/26/2021 09:36:31 PM [facility] XR CHEST FRONTAL ONLY [id number] RESULTI nterpreted by:Katherine Tom, MDPROCEDURE INFORMATION: Exam: XR Chest Exam date and [...] rce(s) Supporting Document(s) ID Date Data Source [id number] 01/26/2021 03:30:31 PM EDT [facility] FLUORO NON-RAD PROC-OR [id number] RESULT This statement is intended for documentation purposes only.This exam was performed in the Operating Room by the Surgeon and a Radiologist was not present. Please refer to the Operative note in EPIC. Name Value Range Interpretation Code Description Data Macie rce(s) Supporting Document(s) ID Date Data Source [id number] 01/26/2021 02:12:59 PM EDT [facility] Name Value Range Interpretation Code Description Data [facility] rce(s) Supporting Document(s) History and Physical [facility] MPCVUo3cLkZWHtHb43/MOXmaKTPap3ZpKAsuMBx5SXvkWVCbO9CaTRK7xK3wGIQ7AIvVYmRqIxDqPGW3 m [file] [id number] ID Date Data Source [id number] 02/02/2021 04:57:00 PM EDT [facility] CYTOPATHOLOGY REPORTName: SONU FAUSTIN Number: [id number] Date: 01/26/2021 00:00Received Date: 01/30/2021 10:57Physician(s): EDDIE HEALY,EDDIE LERNER, Specimen(s) ReceivedA: PERITONEAL WASHINGClinical History:History of esophageal adenocarcinoma per EPIC. Now with liver mass. Seealso [id number], and [id number].DiagnosisPERITONEAL WASHING: NO EVIDENCE OF MALIGNANCYComment/bs/calReviewing Cytotech: Vibha Stroud, MS, CT (ASCP)Pari Steven M.D.;Resident PathologistElectronically Signed By Varsha Fisher M.D. 02/02/2021 16:57:03The attending pathologist named above attests that he/she has personallyreviewed the relevant preparation(s) for the specimen(s) and rendered thefinal diagnosis. Microscopic DescriptionThe specimen is composed of sheets of mesothelial cells, with reactivechanges. /bsGross Rnozykgwulm98 ml clear, pink-tinged fluid received: 2 slides prepared bycytocentrifugation: 1 Diff Quik and 1 Pap stain.This report may include one or more immunohistoche mical stain results thatuse analyte specific reagents. All positive and negative controls havebeen reviewed by the attending pathologist and are satisfactory. The testswere developed and their performance characteristics determined by [facility] Pathololgy department. They have not been cleared or approved by [place] Food and Drug Administration. The FDA has determined that suchclearance or approval is not necessary. Name Value Range Interpretation Code Description Data Macie rce(s) Supporting Document(s) ID Date Data Source [id number] 01/31/2021 05:55:00 PM [facility] Surgical Pathology ReportName: STEFAN FAUSTIN RNMRN: [id number] Number: [id number] Date: 01/26/2021 00:00Received Date: [...] diagnosis is based on amicroscopic examination of pest control service representative sections of tissue.Intraoperative Consultation [facility]) Liver [...] developed and their performance characteristics determined by [facility] Pathology department. They have not been cleared or approved by the USFood and Drug Administration. The FDA has determined that such clearanceor approval is not necessary. Name Value Range Interpretation Code Description Data Macie rce(s) Supporting Document(s) ID Date Data Source [id number] 01/24/2021 12:20:00 PM EDT Robin cordoba Exam Number: [id number] N: 01/24/2021 11:46 EDTPET/CT HEAD TO MID [...] [place] M.D. 112:07 EDT Reported By: - eDlia FLORENCE M.D. Signed By: Delia FLORENCE M.D. Name Value Range Interpretation Code Description Data Macie rce(s) Supporting Document(s) ID Date Data Source [id number] 01/01/2021 08:57:00 AM EDT [facility] ([facility], ) Name Value Range Interpretation Code Description Data Macie rce(s) Supporting Document(s) Surgical Pathology Consult Laboratory test result [facility] ([facility]) Surgical Pathology Report Name: SONU FAUSTIN Collection Date: 01/01/2021 00:00 Received Date: 01/01/2021 08:58 Physician(s): YOU SHEPARD MD ADJAPONG, OPOKU, MD Specimen(s) Received A: Material received for consultation, [place], [place] [address] Clinical History GE junction mass. Do HER2 testing for esophageal adenocarcinoma. Outside diagnosis of "invasive adenocarcinoma, poorly differentiated". Diagnosis IMMUNOHISTOCHEMISTRY, GE JUNCTION MASS, BIOPSY ([id number]; 12/26/20): HER2: Equivocal (2+). (See note). Note [...] is based on a microscopic examination of pest control service representative sections of tissue. Gross Description Received from [facility] in [place], [place] are one H and E stained slide and one paraffin block labeled [id number] with the corresponding pathology report. /jrs This report may include one or more immunohistochemical stain results that use analyte specific reagents. All positive and negative controls have been reviewed by the attending pathologist and are satisfactory. The tests were developed and their performance characteristics determined by [facility] Pathology department. They have not been cleared or approved by the [place] Food and Drug Administration. The FDA has determined that such clearance or approval is not necessary. ID Date Data Source [id number] 01/03/2021 03:35:00 PM [facility] Surgical Pathology ReportName: STEFAN FAUSTIN RNMRN: [id number] Number: [id number] Date: 01/01/2021 00:00Received Date: 01/01/2021 08:58Physician(s): YOU SHEPARD MD ADJAPONG, OPOKU, MDSpecimen(s) ReceivedA: Material received for consultation, [place], [place] [address]Olinical HistoryGE junction mass. Do HER2 testing for esophageal adenocarcinoma. Outside diagnosis of "invasive adenocarcinoma, poorly differentiated".DiagnosisIMMUNOHISTOCHEMISTRY, GE JUNCTION MASS, BIOPSY ([id number]; 12/26/20): HER2: Equivocal (2+). (See note). NoteA rare residual minute c luster of tumor cells is present in the deepertissue section used for our HER2 immunostain and shows equivocal (2+)staining. Given the paucity of cells in the remaining tissue block, [id number] cannot be performed with this specimen. Additional tissue will beneeded in order to perform HER2 FISH testing. Electronically Signed By Joe Guaman MD;, Attending Pathologist01/03/2021 15:35:18 Unless 'gross-only' is specified, the final diagnosis is based on amicroscopic examination of pest control service representative sections of tissue.Gross DescriptionReceived from [facility] in [place], [place] are one H and Estained slide and one paraffin block labeled [id number] with thecorresponding pathology report./jrsThis report may include one or more immunohistochemical stain results thatuse analyte specific reagents. All positive and negative controls havebeen reviewed by the attending pathologist and are satisfactory. The testswere developed and their performance characteristics determined by [facility] Pathology department. They have not been cleared or approved by the USFood and Drug Administration. The FDA has determined that such clearanceor approval is not necessary. Name Value Range Interpretation Code Description Data Macie rce(s) Supporting Document(s) ID Date Data Source [id number] 12/26/2020 03:07:00 PM EDT [facility] ([facility], ) Name Value Range Interpretation Code Description Data Macie rce(s) Supporting Document(s) Surgical pathology study Laboratory test result [facility] ([facility], ) Addendum 1 Entered: 01/04/2021-0826 HER2: Equivocal [...] in order to perform HER2 testing. See [facility] [id number] 01/04/2021825 Addendum Signed____ MAINE SCHUMACHER MD 01/04/2021825 FINAL DIAGNOSIS Esophagus, GE junction mass, biopsy: Invasive adenocarcinoma, poorly differentiated. 4/TR. HER2 testing result to follow. 12/28/2020 - [address], dysphagia, colon screening 12/27/20201230 GROSS DIAGNOSIS Received in formalin labeled "biopsy GE junction mass" and consists of fragments of tissue 0.2 x 0.1 x 0.1 cm. All in one. -OA 12/27/20201230 Signed MAINE SCHUMACHER MD 12/29/2020 0911 ID Date Data Source [id number] 12/22/2020 12:30:00 PM EDT [facility] Name Value Range Interpretation Code Description Data Macie rce(s) Supporting Document(s) SARS-CoV-2 (COVID-19) RNA [Presence] in Respiratory specimen by RAN with probe detection Not Detected [facility] This lab was ordered by [facility] and reported by [facility]. Procedure Social History Code Duration Value Status Description Data Source(s ) Smoking 06/27/2021 12:00:00 AM EDT Current Smoker completed Curre nt Smoker eCW1 ([facility]) Smoking 06/21/2021 12:00:00 AM EDT Current Smoker completed Curre nt Smoker eCW1 ([facility]) Smoking 06/21/2021 12:00:00 AM EDT Current Smoker completed Curre nt Smoker eCW1 ([facility]) Smoking 06/15/2021 12:00:00 AM EDT Current Smoker completed Curre nt Smoker eCW1 ([facility]) Smoking 06/15/2021 12:00:00 AM EDT Current Smoker completed Curre nt Smoker eCW1 ([facility]) Smoking 06/12/2021 12:00:00 AM EDT Current Smoker completed Curre nt Smoker eCW1 ([facility]) Smoking 06/06/2021 12:00:00 AM EDT Current Smoker completed Curre nt Smoker eCW1 ([facility]) Smoking 05/29/2021 12:00:00 AM EDT Current Smoker completed Curre nt Smoker eCW1 ([facility]) Smoking 05/21/2021 12:00:00 AM EDT Current Smoker completed Curre nt Smoker eCW1 ([facility]) Smoking 05/21/2021 12:00:00 AM EDT Current Smoker completed Curre nt Smoker eCW1 ([facility]) Smoking 05/17/2021 12:00:00 AM EDT Current Smoker completed Curre nt Smoker eCW1 ([facility]) Smoking 04/26/2021 12:00:00 AM EDT Current Smoker completed Curre nt Smoker eCW1 ([facility]) Smoking 04/05/2021 12:00:00 AM EDT Current Smoker completed Curre nt Smoker eCW1 ([facility]) Smoking 04/05/2021 12:00:00 AM EDT Current Smoker completed Curre nt Smoker eCW1 ([facility]) Smoking 03/29/2021 12:00:00 AM EDT Current Smoker completed Curre nt Smoker eCW1 ([facility]) Smoking 03/22/2021 12:00:00 AM EDT Current Smoker completed Curre nt Smoker eCW1 ([facility]) Smoking 03/15/2021 12:00:00 AM EDT Current Smoker completed Curre nt Smoker eCW1 ([facility]) Smoking 03/08/2021 12:00:00 AM EDT Current Smoker completed Curre nt Smoker eCW1 ([facility]) Smoking 02/28/2021 12:00:00 AM EDT Current Smoker completed Curre nt Smoker eCW1 ([facility]) Smoking 02/28/2021 12:00:00 AM EDT Current Smoker completed Curre nt Smoker eCW1 ([facility]) Smoking 02/23/2021 12:00:00 AM EDT Current Smoker completed Curre nt Smoker eCW1 ([facility]) Smoking 02/16/2021 12:00:00 AM EDT Current Smoker completed Curre nt Smoker eCW1 ([facility]) Smoking 02/09/2021 12:00:00 AM EDT Current Smoker completed Curre nt Smoker eCW1 ([facility]) Alcohol intake 01/30/2021 12:00:00 AM EDT Current drinker of al cohol (finding) completed Current drinker of alcohol (finding) [facility] Tobacco use and exposure 01/30/2021 12:00:00 AM EDT Never used co mpleted Never used [facility] Cigarettes smoked current (pack per day) - Reported 01/31/20 12:00:00 AM EDT UNK completed [facility] Smoking 01/30/2021 12:00:00 AM EDT Current some day smoker com pleted Current some day smoker [facility] Alcohol intake 01/22/2021 12:00:00 AM EDT Current drinker of al cohol (finding) completed Current drinker of alcohol (finding) [facility] Smoking 01/18/2021 12:00:00 AM EDT Current Smoker completed Curre nt Smoker eCW1 ([facility]) Smoking 01/18/2021 12:00:00 AM EDT Current Smoker completed Curre nt Smoker eCW1 ([facility]) Smoking 01/18/2021 12:00:00 AM EDT Current Smoker completed Curre nt Smoker eCW1 ([facility]) Smoking 01/18/2021 12:00:00 AM EDT Current Smoker completed Curre nt Smoker eCW1 ([facility]) Smoking 12/20/2020 12:00:00 AM EDT Current Smoker completed Curre nt Smoker eCW1 ([facility]) Smoking 12/20/2020 12:00:00 AM EDT Current Smoker completed Curre nt Smoker eCW1 ([facility]) Smoking 05/10/2020 12:00:00 AM EDT Current Smoker completed Curre nt Smoker eCW1 ([facility]) Smoking 05/10/2020 12:00:00 AM EDT Current Smoker completed Curre nt Smoker eCW1 ([facility]) Vital Signs ID Date Data Source UNK Name Value Range Interpretation Code Description Data Source(s) Body weight 134 [lb_av] 134 [lb_av] eCW1 ([facility]) Body height 66 [in_i] 66 [in_i] eCW1 ([facility]) Body mass index (BMI) [Ratio] 21.63 kg/m2 21.63 kg/m2 eCW1 ([facility]) Heart rate 70 /min 70 /min eCW1 ([facility]) Respiratory rate 16 /min 16 /min eCW1 [facility] Body temperature 98.2 [degF] 98.2 [degF] eCW1 ( [facility]) Systolic blood pressure 93 mm[Hg] 93 mm[Hg] e CW1 ([facility]) Diastolic blood pressure 57 mm[Hg] 57 mm[Hg] eCW1 ([facility]) Body weight 134 [lb_av] 134 [lb_av] eCW1 ([facility]) Body weight 60.78 kg 60.78 kg eCW1 ([facility]) Body height 66 [in_i] 66 [in_i] eCW1 ([facility]) Body mass index (BMI) [Ratio] 21.63 kg/m2 21.63 kg/m2 eCW1 ([facility]) Heart rate 94 /min 94 /min eCW1 ([facility]) Respiratory rate 18 /min 18 /min eCW1 ([facility] Body temperature 98.2 [degF] 98.2 [degF] eCW1 ( [facility]) Systolic blood pressure 122 mm[Hg] 122 mm[Hg] e CW1 ([facility]) Diastolic blood pressure 78 mm[Hg] 78 mm[Hg] eCW1 ([facility]) Body weight 138.6 [lb_av] 138.6 [lb_av] eCW1 ([facility]) Body weight 62.87 kg 62.87 kg eCW1 ([facility]) Body temperature 98.6 [degF] 98.6 [degF] eCW1 ( [facility]) Body height 66 [in_i] 66 [in_i] eCW1 ([facility]) Body mass index (BMI) [Ratio] 22.37 kg/m2 22.37 kg/m2 eCW1 ([facility]) Heart rate 89 /min 89 /min eCW1 ([facility]) Respiratory rate 18 /min 18 /min eCW1 ([facility] Diastolic blood pressure 66 mm[Hg] 66 mm[Hg] eCW1 ([facility]) Systolic blood pressure 143 mm[Hg] 143 mm[Hg] e CW1 ([facility]) Body height 66 [in_i] 66 [in_i] eCW1 ([facility]) Body mass index (BMI) [Ratio] 22.37 kg/m2 22.37 kg/m2 eCW1 ([facility]) Heart rate 90 /min 90 /min eCW1 ([facility]) Body weight 138.6 [lb_av] 138.6 [lb_av] eCW1 ([facility]) Body weight 62.87 kg 62.87 kg eCW1 ([facility]) Respiratory rate 18 /min 18 /min eCW1 ([facility] Body temperature 98.5 [degF] 98.5 [degF] eCW1 ( [facility]) Systolic blood pressure 138 mm[Hg] 138 mm[Hg] e CW1 ([facility]) Diastolic blood pressure 74 mm[Hg] 74 mm[Hg] eCW1 ([facility]) Body weight 135 [lb_av] 135 [lb_av] eCW1 ([facility]) Body weight 61.24 kg 61.24 kg eCW1 ([facility]) Body height 66 [in_i] 66 [in_i] eCW1 ([facility]) Body mass index (BMI) [Ratio] 21.79 kg/m2 21.79 kg/m2 eCW1 ([facility]) Heart rate 76 /min 76 /min eCW1 ([facility]) Respiratory rate 18 /min 18 /min eCW1 ([facility]) Body temperature 98.7 [degF] 98.7 [degF] eCW1 ( [facility]) Systolic blood pressure 120 mm[Hg] 120 mm[Hg] e CW1 ([facility]) Diastolic blood pressure 68 mm[Hg] 68 mm[Hg] eCW1 ([facility]) Body weight 135 [lb_av] 135 [lb_av] eCW1 ([facility]) Body weight 61.24 kg 61.24 kg eCW1 ([facility]) Body height 66 [in_i] 66 [in_i] eCW1 ([facility]) Body mass index (BMI) [Ratio] 21.79 kg/m2 21.79 kg/m2 eCW1 ([facility]) Heart rate 91 /min 91 /min eCW1 ([facility]) Respiratory rate 18 /min 18 /min eCW1 ([facility] Body temperature 98.0 [degF] 98.0 [degF] eCW1 ( [facility]) Systolic blood pressure 130 mm[Hg] 130 mm[Hg] e CW1 ([facility]) Diastolic blood pressure 72 mm[Hg] 72 mm[Hg] eCW1 ([facility]) Body weight 132.6 [lb_av] 132.6 [lb_av] eCW1 ([facility]) Body height 66 [in_i] 66 [in_i] eCW1 ([facility]) Body mass index (BMI) [Ratio] 21.40 kg/m2 21.40 kg/m2 eCW1 ([facility]) Heart rate 97 /min 97 /min eCW1 ([facility]) Respiratory rate 18 /min 18 /min eCW1 ([facility] Body temperature 98.7 [degF] 98.7 [degF] eCW1 ( [facility]) Systolic blood pressure 120 mm[Hg] 120 mm[Hg] e CW1 ([facility]) Diastolic blood pressure 68 mm[Hg] 68 mm[Hg] eCW1 ([facility]) Body weight 128 [lb_av] 128 [lb_av] eCW1 ([facility]) Body height 66 [in_i] 66 [in_i] eCW1 ([facility]) Body mass index (BMI) [Ratio] 20.66 kg/m2 20.66 kg/m2 eCW1 ([facility]) Heart rate 101 /min 101 /min eCW1 ([facility]) Respiratory rate 16 /min 16 /min eCW1 ([facility] Body temperature 98 [degF] 98 [degF] eCW1 ([facility]) Systolic blood pressure 150 mm[Hg] 150 mm[Hg] e CW1 ([facility]) Diastolic blood pressure 65 mm[Hg] 65 mm[Hg] eCW1 ([facility]) Body weight 128 [lb_av] 128 [lb_av] eCW1 ([facility]) Body height 66 [in_i] 66 [in_i] eCW1 ([facility]) Body mass index (BMI) [Ratio] 20.66 kg/m2 20.66 kg/m2 eCW1 ([facility]) Heart rate 82 /min 82 /min eCW1 ([facility]) Respiratory rate 16 /min 16 /min eCW1 ([facility] Body temperature 98 [degF] 98 [degF] eCW1 ([facility]) Systolic blood pressure 89 mm[Hg] 89 mm[Hg] e CW1 ([facility]) Diastolic blood pressure 61 mm[Hg] 61 mm[Hg] eCW1 ([facility]) Body weight 128 [lb_av] 128 [lb_av] eCW1 ([facility]) Body weight kg eCW1 ([facility]) Body height 66 [in_i] 66 [in_i] eCW1 ([facility]) Body mass index (BMI) [Ratio] 20.66 kg/m2 20.66 kg/m2 eCW1 ([facility]) Heart rate 56 /min 56 /min eCW1 ([facility]) Respiratory rate 17 /min 17 /min eCW1 ([facility]) Body temperature 98.4 [degF] 98.4 [degF] eCW1 ( [facility]) Systolic blood pressure 130 mm[Hg] 130 mm[Hg] e CW1 ([facility]) Diastolic blood pressure 60 mm[Hg] 60 mm[Hg] eCW1 ([facility]) Body weight 128 [lb_av] 128 [lb_av] eCW1 ([facility]) Body weight kg eCW1 ([facility]) Body height 66 [in_i] 66 [in_i] eCW1 ([facility]) Body mass index (BMI) [Ratio] 20.66 kg/m2 20.66 kg/m2 eCW1 ([facility]) Heart rate 87 /min 87 /min eCW1 ([facility]) Respiratory rate 18 /min 18 /min eCW1 ([facility] Body temperature 97.3 [degF] 97.3 [degF] eCW1 ( [facility]) Systolic blood pressure 124 mm[Hg] 124 mm[Hg] e CW1 ([facility]) Diastolic blood pressure 60 mm[Hg] 60 mm[Hg] eCW1 ([facility]) Body weight 132 [lb_av] 132 [lb_av] eCW1 ([facility]) Body weight kg eCW1 ([facility]) Body height 66 [in_i] 66 [in_i] eCW1 ([facility]) Body mass index (BMI) [Ratio] 21.30 kg/m2 21.30 kg/m2 eCW1 ([facility]) Heart rate 102 /min 102 /min eCW1 ([facility]) Respiratory rate 17 /min 17 /min eCW1 ([facility]) Body temperature 97.9 [degF] 97.9 [degF] eCW1 ( [facility]) Systolic blood pressure 140 mm[Hg] 140 mm[Hg] e CW1 ([facility]) Diastolic blood pressure 69 mm[Hg] 69 mm[Hg] eCW1 ([facility]) Body temperature 98.5 [degF] 98.5 [degF] eCW1 ( [facility]) Heart rate 89 /min 89 /min eCW1 ([facility]) Respiratory rate 16 /min 16 /min eCW1 ([facility] Body weight 132 [lb_av] 132 [lb_av] eCW1 ([facility]) Body weight kg eCW1 ([facility]) Body height 66 [in_i] 66 [in_i] eCW1 ([facility]) Body mass index (BMI) [Ratio] 21.30 kg/m2 21.30 kg/m2 eCW1 ([facility]) Systolic blood pressure 157 mm[Hg] 157 mm[Hg] e CW1 ([facility]) Diastolic blood pressure 73 mm[Hg] 73 mm[Hg] eCW1 ([facility]) Body weight 139 [lb_av] 139 [lb_av] eCW1 ([facility]) Body weight kg eCW1 ([facility]) Body height 66 [in_i] 66 [in_i] eCW1 ([facility]) Body mass index (BMI) [Ratio] 22.43 kg/m2 22.43 kg/m2 eCW1 ([facility]) Heart rate 82 /min 82 /min eCW1 ([facility]) Respiratory rate 17 /min 17 /min eCW1 ([facility]) Body temperature 99.3 [degF] 99.3 [degF] eCW1 ( [facility]) Systolic blood pressure 132 mm[Hg] 132 mm[Hg] e CW1 ([facility]) Diastolic blood pressure 61 mm[Hg] 61 mm[Hg] eCW1 ([facility]) Body weight 139 [lb_av] 139 [lb_av] eCW1 ([facility]) Body weight kg eCW1 ([facility]) Body height 66 [in_i] 66 [in_i] eCW1 ([facility]) Body mass index (BMI) [Ratio] 22.43 kg/m2 22.43 kg/m2 eCW1 ([facility]) Heart rate 101 /min 101 /min eCW1 ([facility]) Respiratory rate 18 /min 18 /min eCW1 ([facility]) Body temperature 98.7 [degF] 98.7 [degF] eCW1 ( [facility]) Systolic blood pressure 146 mm[Hg] 146 mm[Hg] e CW1 ([facility]) Diastolic blood pressure 68 mm[Hg] 68 mm[Hg] eCW1 ([facility]) Body weight 139 [lb_av] 139 [lb_av] eCW1 ([facility]) Systolic blood pressure 129 mm[Hg] 129 mm[Hg] e CW1 ([facility]) Diastolic blood pressure 60 mm[Hg] 60 mm[Hg] eCW1 ([facility]) Body weight kg eCW1 ([facility]) Body height 66 [in_i] 66 [in_i] eCW1 ([facility]) Body mass index (BMI) [Ratio] 22.43 kg/m2 22.43 kg/m2 eCW1 ([facility]) Heart rate 87 /min 87 /min eCW1 ([facility]) Respiratory rate 16 /min 16 /min eCW1 ([facility]) Body temperature 98.9 [degF] 98.9 [degF] eCW1 ( [facility]) Heart rate 91 /min 91 /min eCW1 ([facility]) Body mass index (BMI) [Ratio] 22.43 kg/m2 22.43 kg/m2 eCW1 ([facility]) Body temperature 99.5 [degF] 99.5 [degF] eCW1 ( [facility]) Body weight 139 [lb_av] 139 [lb_av] eCW1 ([facility]) Respiratory rate 16 /min 16 /min eCW1 ([facility]) Systolic blood pressure 136 mm[Hg] 136 mm[Hg] e CW1 ([facility]) Diastolic blood pressure 78 mm[Hg] 78 mm[Hg] eCW1 ([facility]) Body weight kg eCW1 ([facility]) Body height 66 [in_i] 66 [in_i] eCW1 ([facility]) Body height 68 [in_i] 68 [in_i] eCW1 ([facility]) Systolic blood pressure 120 mm[Hg] 120 mm[Hg] e CW1 ([facility]) Diastolic blood pressure 78 mm[Hg] 78 mm[Hg] eCW1 ([facility]) Body weight 142 [lb_av] 142 [lb_av] eCW1 ([facility]) Body weight 64.41 kg 64.41 kg eCW1 ([facility]) Body mass index (BMI) [Ratio] 21.59 kg/m2 21.59 kg/m2 W1 ([facility]) Heart rate 90 /min 90 /min eCW1 ([facility]) Oxygen saturation in Arterial blood by Pulse oximetry 96 % 96 % eCW1 ([facility]) Diastolic blood pressure 83 mm[Hg] 83 mm[Hg] MEDENT ([facility]) Systolic blood pressure 139 mm[Hg] 139 mm[Hg] M EDENT ([facility]) Heart rate 89 /min 89 /min [facility] ([facility]) Body height 68 [in_i] 68 [in_i] [facility] ([facility]) 5'8" Body weight 140.25 [lb_av] 140.25 [lb_av] MEDEN T ([facility]) Body mass index (BMI) [Ratio] 21.3 kg/m2 21.3 k g/m2 [facility] ([facility]) [place] body weight 154 [lb_av] 154 [lb_av] [facility] ([facility]) Body weight 63.617 kg 63.617 kg [facility] ([facility]) Body surface area Derived from formula 1.76 m2 1.76 m2 [facility] ([facility]) Body height 68 [in_i] 68 [in_i] eCW1 ([facility]) Systolic blood pressure 124 mm[Hg] 124 mm[Hg] e CW1 ([facility]) Body weight 143 [lb_av] 143 [lb_av] eCW1 ([facility]) Diastolic blood pressure 80 mm[Hg] 80 mm[Hg] eCW1 ([facility]) Body weight 64.86 kg 64.86 kg eCW1 ([facility]) Body mass index (BMI) [Ratio] 21.74 kg/m2 21.74 kg/m2 W1 ([facility]) Body temperature 98.2 [degF] 98.2 [degF] eCW1 ( [facility]) Heart rate 86 /min 86 /min [facility] ([facility]) Oxygen saturation in Arterial blood by Pulse oximetry 96 % 96 % W1 ([facility]) Body weight 64.865 kg 64.865 kg [facility] ([facility]) [place] body weight 154 [lb_av] 154 [lb_av] MEDEN T ([facility]) Systolic blood pressure 154 mm[Hg] 154 mm[Hg] M EDENT ([facility]) Diastolic blood pressure 74 mm[Hg] 74 mm[Hg] [facility] ([facility]) Body height 68 [in_i] 68 [in_i] [facility] ([facility]) 5'8" Body weight 143.00 [lb_av] 143.00 [lb_av] MEDEN T ([facility]) Body mass index (BMI) [Ratio] 21.7 kg/m2 21.7 k g/m2 [facility] ([facility]) Body surface area Derived from formula 1.77 m2 1.77 m2 [facility] ([facility]) Body weight 71.67 kg 71.67 kg W1 ([facility]) Body mass index (BMI) [Ratio] 24.02 kg/m2 24.02 kg/m2 W1 ([facility]) Body height 68 [in_i] 68 [in_i] eCW1 ([facility]) Body weight 158 [lb_av] 158 [lb_av] eCW1 ([facility]) Body temperature 97.2 [degF] 97.2 [degF] W1 ( [facility]) Heart rate 87 /min 87 /min W1 ([facility]) Oxygen saturation in Arterial blood by Pulse oximetry 95 % 95 % eCW1 ([facility]) Systolic blood pressure 128 mm[Hg] 128 mm[Hg] e CW1 ([facility]) Diastolic blood pressure 76 mm[Hg] 76 mm[Hg] eCW1 ([facility]) ID Date Data Source [id number] 02/06/2021 02:58:00 PM [facility] Name Value Range Interpretation Code Description Data Source(s) WEIGHT RECORDED 138.45 lb 138.45 lb [facility] Body height Measured 67 in 67 in [facility] WEIGHT RECORDED 139 lb 139 lb [facility] ID Date Data Source [id number] 01/27/2021 12:13:42 PM EDT [facility] Name Value Range Interpretation Code Description Data Source(s) WEIGHT RECORDED 139.8 lb 139.8 lb [facility] Body height Measured 67 in 67 in [facility] Patient Treatment Plan of Care Planned Activity Planned Date Details Description Data Source (s) Levofloxacin 500 MG Oral Tablet 02/28/2021 12:00:00 AM EDT [facility] ([facility]) Levofloxacin 500 MG Oral Tablet 02/28/2021 12:00:00 AM EDT [facility] ([facility]) 0.4 ML Enoxaparin sodium 100 MG/ML Prefilled Syringe 021 12:00:00 AM [facility] oxyCODONE (ROXICODONE) 5 MG/5ML solution 2.5 mg 01/29/2021 02:58:56 PM [facility] Acetaminophen 32 MG/ML Oral Solution 01/27/2021 07:49:00 PM [facility] sodium chloride 0.9 % bag 3-20 mL 01/27/2021 01:32:39 PM [facility] ondansetron (ZOFRAN) injection 4 mg 01/26/2021 07:02:05 PM [facility]
[2021-06-30 18:58] LABS: BASO % 0.2 % (0.0-1.0); EOS # 0.1 10^3/uL (0.0-0.5); EOS % 0.3 % (0.0-3.0); HEMATOCRIT 36.2 % (42.0-52.0); HEMOGLOBIN 11.9 g/dl (13.5-17.5); LYMPH # 0.4 10^3/uL (1.5-5.0); LYMPH % 2.5 % (24.0-44.0); MEAN CORPUSCULAR HEMOGLOBIN 32.6 pg (27.0-33.0); MEAN CORPUSCULAR HGB CONC 32.9 g/dl (32.0-36.5); MEAN CORPUSCULAR VOLUME 99.2 fl (80.0-96.0); MONO # 1.3 10^3/uL (0.0-0.8); MONO % 7.8 % (2.0-8.0); NEUTROPHILS # 15.3 10^3/uL (1.5-8.5); NEUTROPHILS % 88.9 % (36.0-66.0); PLATELET COUNT, AUTOMATED 199 10^3/uL (150-450); RED BLOOD COUNT 3.65 10^6/uL (4.30-6.10); WHITE BLOOD COUNT 17.2 10^3/uL (4.0-10.0)
[2021-06-30] MEDS ORDERED: POTASSIUM CHLORIDE 10MEQ SR TABLET PO ONE (19:30)
[2021-06-30 19:44] VITALS: BP 117/71
== END 2021-06-30 19:52 | disposition home or self-care (01) ==
LOC: M ED 17:54
DX: R31.9 Hematuria, unspecified (principal); T83.098A Other mechanical complication of other urinary catheter, initial encounter; K21.9 Gastro-esophageal reflux disease without esophagitis; F17.210 Nicotine dependence, cigarettes, uncomplicated

== ENCOUNTER → 2021-07-31 | Outpatient (POV) | payer SELFPAY ==
[~2021-07-31] VITALS: Ht 170.2 cm; Wt 59.0 kg
[~2021-07-31] MED LIST changes: +ACET-683 PO; -LEVO500T3; +LEVO500T4; +ONDA-84 PO; -ONDA8TAB10 PO; -PROC10TA4 PO; +PROC10TA5 PO
[2021-07-31 10:10] VITALS: BP 98/63
== END ==
LOC: M IRPOV 09:53
PROVIDERS: ATTEND Radiology Diagnostic Radiology
DX: Z43.1 Encounter for attention to gastrostomy (principal); 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, unspecified; Z92.21 Personal history of antineoplastic chemotherapy; Z92.3 Personal history of irradiation

== ENCOUNTER → 2021-09-21 | Outpatient (REF) | payer SELFPAY ==
[2021-09-21 15:00] LABS: APPEARANCE, URINE CLEAR (CLEAR); BACTERIA, URINE AUTO NEGATIVE (NEGATIVE); BILIRUBIN, URINE AUTO NEGATIVE (NEGATIVE); BLOOD, URINE BLOOD NEGATIVE (NEGATIVE); COLOR, URINE STRAW (YELLOW); GLUCOSE, URINE (UA) AUTO NEGATIVE (NEGATIVE); KETONE, URINE AUTO NEGATIVE (NEGATIVE); LEUKOCYTE ESTERASE, URINE AUTO TRACE (NEGATIVE); MUCUS, URINE SMALL (NEGATIVE); NITRITE, URINE AUTO NEGATIVE (NEGATIVE); PROTEIN, URINE AUTO NEGATIVE (NEGATIVE); RBC, URINE AUTO 3 /HPF (0-3); SPECIFIC GRAVITY URINE AUTO 1.012 (1.002-1.035); SQUAMOUS EPITHELIAL CELL UR AU 0 /HPF (0-6); UROBILINOGEN, URINE AUTO 0.2 mg/dL (0.0-2.0); WBC, URINE AUTO 10 /HPF (0-3)
== END ==
LOC: M SMT 14:07
PROVIDERS: ATTEND Urology
DX: C67.9 Malignant neoplasm of bladder, unspecified (principal); N39.0 Urinary tract infection, site not specified

== ENCOUNTER → 2021-09-27 | Outpatient (CLI) | payer SELFPAY | LOC: M ONCR 13:37 | PROVIDERS: ATTEND General Practice | DX: C15.5 Malignant neoplasm of lower third of esophagus (principal); F17.210 Nicotine dependence, cigarettes, uncomplicated; Z92.3 Personal history of irradiation; Z92.21 Personal history of antineoplastic chemotherapy ==

== ENCOUNTER → 2021-10-01 | Outpatient (CLI) | payer SELFPAY ==
[2021-10-01 12:29] LABS: APPEARANCE, URINE CLEAR (CLEAR); BACTERIA, URINE AUTO 2+ (NEGATIVE); BILIRUBIN, URINE AUTO NEGATIVE (NEGATIVE); BLOOD, URINE BLOOD NEGATIVE (NEGATIVE); COLOR, URINE YELLOW (YELLOW); GLUCOSE, URINE (UA) AUTO NEGATIVE (NEGATIVE); KETONE, URINE AUTO NEGATIVE (NEGATIVE); LEUKOCYTE ESTERASE, URINE AUTO 1+ (NEGATIVE); NITRITE, URINE AUTO NEGATIVE (NEGATIVE); PROTEIN, URINE AUTO NEGATIVE (NEGATIVE); RBC, URINE AUTO 4 /HPF (0-3); SPECIFIC GRAVITY URINE AUTO 1.012 (1.002-1.035); SQUAMOUS EPITHELIAL CELL UR AU 0 /HPF (0-6); UROBILINOGEN, URINE AUTO 0.2 mg/dL (0.0-2.0); WBC, URINE AUTO 15 /HPF (0-3)
== END ==
LOC: M LAB 11:56
PROVIDERS: ATTEND Urology
DX: C67.9 Malignant neoplasm of bladder, unspecified (principal)

== ENCOUNTER → 2021-10-15 | Outpatient (REF) | payer SELFPAY ==
[2021-10-15 11:44] LABS: APPEARANCE, URINE CLEAR (CLEAR); BACTERIA, URINE AUTO NEGATIVE (NEGATIVE); BILIRUBIN, URINE AUTO NEGATIVE (NEGATIVE); BLOOD, URINE BLOOD 1+ (NEGATIVE); COLOR, URINE YELLOW (YELLOW); GLUCOSE, URINE (UA) AUTO NEGATIVE (NEGATIVE); KETONE, URINE AUTO NEGATIVE (NEGATIVE); LEUKOCYTE ESTERASE, URINE AUTO 1+ (NEGATIVE); NITRITE, URINE AUTO NEGATIVE (NEGATIVE); PROTEIN, URINE AUTO NEGATIVE (NEGATIVE); RBC, URINE AUTO 14 /HPF (0-3); SPECIFIC GRAVITY URINE AUTO 1.013 (1.002-1.035); SQUAMOUS EPITHELIAL CELL UR AU 0 /HPF (0-6); UROBILINOGEN, URINE AUTO 0.2 mg/dL (0.0-2.0); WBC, URINE AUTO 29 /HPF (0-3)
== END ==
LOC: M SMT 11:05
PROVIDERS: ATTEND Urology
DX: N39.0 Urinary tract infection, site not specified (principal)

== ENCOUNTER → 2021-11-01 | Outpatient (CLI) | payer SELFPAY ==
[~2021-11-01] MED LIST changes: +LIDOCAINE 1% MDV 20ML VIAL As Ordered ONE; +MIDAZOLAM INJ 2MG/2ML VIAL (J2250 PER 1MG) As Ordered ONE; +NS 1,000 ML IV SCH; +ceFAZolin 2 GM/D5W 50 ML IV BAG (J0690 PER 500MG) As Ordered ONE; +ceFAZolin SOD 2 GM in IV 1 EA IV ONE; +diphenhydrAMINE 50MG/ML VIAL (J1200) As Ordered ONE; +fentaNYL 100 MCG/2 ML INJECTION As Ordered ONE
[2021-11-01 15:56] VITALS: BP 135/70
== END ==
LOC: M IRPRO 12:50
PROVIDERS: ATTEND Radiology Diagnostic Radiology
DX: Z45.2 Encounter for adjustment and management of vascular access device (principal); C16.0 Malignant neoplasm of cardia
CPT/HCPCS: 36590; 99152; 99153; J0690; J1200; J1644; J2250; J3010

== ENCOUNTER → 2021-11-05 | Outpatient (CLI) | payer SELFPAY ==
[~2021-11-05] MED LIST changes: -LIDOCAINE 1% MDV 20ML VIAL As Ordered ONE; -MIDAZOLAM INJ 2MG/2ML VIAL (J2250 PER 1MG) As Ordered ONE; -NS 1,000 ML IV SCH; -ceFAZolin 2 GM/D5W 50 ML IV BAG (J0690 PER 500MG) As Ordered ONE; -ceFAZolin SOD 2 GM in IV 1 EA IV ONE; -diphenhydrAMINE 50MG/ML VIAL (J1200) As Ordered ONE; -fentaNYL 100 MCG/2 ML INJECTION As Ordered ONE
[2021-11-05 12:14] LABS: APPEARANCE, URINE CLEAR (CLEAR); BACTERIA, URINE AUTO NEGATIVE (NEGATIVE); BILIRUBIN, URINE AUTO NEGATIVE (NEGATIVE); BLOOD, URINE BLOOD 3+ (NEGATIVE); COLOR, URINE YELLOW (YELLOW); GLUCOSE, URINE (UA) AUTO NEGATIVE (NEGATIVE); KETONE, URINE AUTO NEGATIVE (NEGATIVE); LEUKOCYTE ESTERASE, URINE AUTO TRACE (NEGATIVE); NITRITE, URINE AUTO NEGATIVE (NEGATIVE); PROTEIN, URINE AUTO NEGATIVE (NEGATIVE); RBC, URINE AUTO 75 /HPF (0-3); SPECIFIC GRAVITY URINE AUTO 1.009 (1.002-1.035); SQUAMOUS EPITHELIAL CELL UR AU 0 /HPF (0-6); UROBILINOGEN, URINE AUTO 0.2 mg/dL (0.0-2.0); WBC, URINE AUTO 15 /HPF (0-3)
== END ==
LOC: M LAB 11:38
PROVIDERS: ATTEND Urology
DX: N39.0 Urinary tract infection, site not specified (principal)

== ENCOUNTER → 2021-11-12 | Outpatient (CLI) | payer SELFPAY ==
[2021-11-12 12:21] LABS: APPEARANCE, URINE CLEAR (CLEAR); BACTERIA, URINE AUTO NEGATIVE (NEGATIVE); BILIRUBIN, URINE AUTO NEGATIVE (NEGATIVE); BLOOD, URINE BLOOD 3+ (NEGATIVE); COLOR, URINE YELLOW (YELLOW); GLUCOSE, URINE (UA) AUTO NEGATIVE (NEGATIVE); KETONE, URINE AUTO NEGATIVE (NEGATIVE); LEUKOCYTE ESTERASE, URINE AUTO NEGATIVE (NEGATIVE); NITRITE, URINE AUTO NEGATIVE (NEGATIVE); PROTEIN, URINE AUTO NEGATIVE (NEGATIVE); RBC, URINE AUTO 67 /HPF (0-3); SPECIFIC GRAVITY URINE AUTO 1.006 (1.002-1.035); SQUAMOUS EPITHELIAL CELL UR AU 0 /HPF (0-6); UROBILINOGEN, URINE AUTO 0.2 mg/dL (0.0-2.0); WBC, URINE AUTO 16 /HPF (0-3)
== END ==
LOC: M LAB 11:47
PROVIDERS: ATTEND Urology
DX: C67.9 Malignant neoplasm of bladder, unspecified (principal)

== ENCOUNTER → 2021-11-20 | Outpatient (REF) | payer SELFPAY ==
[2021-11-20 14:16] LABS: APPEARANCE, URINE CLEAR (CLEAR); BACTERIA, URINE AUTO 1+ (NEGATIVE); BILIRUBIN, URINE AUTO NEGATIVE (NEGATIVE); BLOOD, URINE BLOOD 3+ (NEGATIVE); COLOR, URINE STRAW (YELLOW); GLUCOSE, URINE (UA) AUTO NEGATIVE (NEGATIVE); KETONE, URINE AUTO NEGATIVE (NEGATIVE); LEUKOCYTE ESTERASE, URINE AUTO 2+ (NEGATIVE); NITRITE, URINE AUTO NEGATIVE (NEGATIVE); PROTEIN, URINE AUTO NEGATIVE (NEGATIVE); RBC, URINE AUTO 43 /HPF (0-3); SPECIFIC GRAVITY URINE AUTO 1.006 (1.002-1.035); SQUAMOUS EPITHELIAL CELL UR AU 0 /HPF (0-6); UROBILINOGEN, URINE AUTO 0.2 mg/dL (0.0-2.0); WBC, URINE AUTO 52 /HPF (0-3)
== END ==
LOC: M SMT 13:50
PROVIDERS: ATTEND Urology
DX: C67.9 Malignant neoplasm of bladder, unspecified (principal)

== ENCOUNTER → 2021-11-27 | Outpatient (CLI) | payer SELFPAY ==
[2021-11-27 12:41] LABS: APPEARANCE, URINE CLEAR (CLEAR); BACTERIA, URINE AUTO NEGATIVE (NEGATIVE); BILIRUBIN, URINE AUTO NEGATIVE (NEGATIVE); BLOOD, URINE BLOOD 3+ (NEGATIVE); COLOR, URINE STRAW (YELLOW); GLUCOSE, URINE (UA) AUTO NEGATIVE (NEGATIVE); KETONE, URINE AUTO NEGATIVE (NEGATIVE); LEUKOCYTE ESTERASE, URINE AUTO 2+ (NEGATIVE); NITRITE, URINE AUTO NEGATIVE (NEGATIVE); PROTEIN, URINE AUTO NEGATIVE (NEGATIVE); RBC, URINE AUTO 85 /HPF (0-3); SPECIFIC GRAVITY URINE AUTO 1.009 (1.002-1.035); SQUAMOUS EPITHELIAL CELL UR AU 0 /HPF (0-6); UROBILINOGEN, URINE AUTO 0.2 mg/dL (0.0-2.0); WBC, URINE AUTO 38 /HPF (0-3)
== END ==
LOC: M LAB 11:46
PROVIDERS: ATTEND Urology
DX: C67.9 Malignant neoplasm of bladder, unspecified (principal)

== ENCOUNTER → 2021-12-03 | Outpatient (CLI) | payer SELFPAY ==
[2021-12-03 12:02] LABS: APPEARANCE, URINE CLEAR (CLEAR); BACTERIA, URINE AUTO NEGATIVE (NEGATIVE); BILIRUBIN, URINE AUTO NEGATIVE (NEGATIVE); BLOOD, URINE BLOOD 3+ (NEGATIVE); COLOR, URINE STRAW (YELLOW); GLUCOSE, URINE (UA) AUTO NEGATIVE (NEGATIVE); KETONE, URINE AUTO NEGATIVE (NEGATIVE); LEUKOCYTE ESTERASE, URINE AUTO 1+ (NEGATIVE); NITRITE, URINE AUTO NEGATIVE (NEGATIVE); PROTEIN, URINE AUTO NEGATIVE (NEGATIVE); RBC, URINE AUTO 34 /HPF (0-3); SPECIFIC GRAVITY URINE AUTO 1.005 (1.002-1.035); SQUAMOUS EPITHELIAL CELL UR AU 0 /HPF (0-6); UROBILINOGEN, URINE AUTO 0.2 mg/dL (0.0-2.0); WBC, URINE AUTO 36 /HPF (0-3)
== END ==
LOC: M LAB 11:23
PROVIDERS: ATTEND Urology
DX: C67.9 Malignant neoplasm of bladder, unspecified (principal)

== ENCOUNTER → 2021-12-17 | Outpatient (REF) | payer SELFPAY ==
[2021-12-17 12:46] LABS: APPEARANCE, URINE CLEAR (CLEAR); BACTERIA, URINE AUTO NEGATIVE (NEGATIVE); BILIRUBIN, URINE AUTO NEGATIVE (NEGATIVE); BLOOD, URINE BLOOD 3+ (NEGATIVE); COLOR, URINE YELLOW (YELLOW); GLUCOSE, URINE (UA) AUTO NEGATIVE (NEGATIVE); KETONE, URINE AUTO NEGATIVE (NEGATIVE); LEUKOCYTE ESTERASE, URINE AUTO 2+ (NEGATIVE); NITRITE, URINE AUTO NEGATIVE (NEGATIVE); PROTEIN, URINE AUTO NEGATIVE (NEGATIVE); RBC, URINE AUTO 78 /HPF (0-3); SPECIFIC GRAVITY URINE AUTO 1.009 (1.002-1.035); SQUAMOUS EPITHELIAL CELL UR AU 0 /HPF (0-6); UROBILINOGEN, URINE AUTO 0.2 mg/dL (0.0-2.0); WBC, URINE AUTO 30 /HPF (0-3)
== END ==
LOC: M SMT 11:46
PROVIDERS: ATTEND Urology
DX: C67.9 Malignant neoplasm of bladder, unspecified (principal)

== ENCOUNTER → 2021-12-24 | Outpatient (REF) | payer SELFPAY ==
[2021-12-24 13:41] LABS: APPEARANCE, URINE HAZY (CLEAR); BACTERIA, URINE AUTO NEGATIVE (NEGATIVE); BILIRUBIN, URINE AUTO NEGATIVE (NEGATIVE); BLOOD, URINE BLOOD 2+ (NEGATIVE); COLOR, URINE YELLOW (YELLOW); GLUCOSE, URINE (UA) AUTO 1+ mg/dL (NEGATIVE); KETONE, URINE AUTO NEGATIVE (NEGATIVE); LEUKOCYTE ESTERASE, URINE AUTO 1+ (NEGATIVE); MUCUS, URINE SMALL (NEGATIVE); NITRITE, URINE AUTO NEGATIVE (NEGATIVE); PROTEIN, URINE AUTO 1+ mg/dL (NEGATIVE); RBC, URINE AUTO 66 /HPF (0-3); SPECIFIC GRAVITY URINE AUTO 1.014 (1.002-1.035); SQUAMOUS EPITHELIAL CELL UR AU 0 /HPF (0-6); UROBILINOGEN, URINE AUTO 0.2 mg/dL (0.0-2.0); WBC, URINE AUTO 28 /HPF (0-3)
== END ==
LOC: M SMT 12:52
PROVIDERS: ATTEND Urology
DX: C67.9 Malignant neoplasm of bladder, unspecified (principal)

== ENCOUNTER → 2022-01-23 | Outpatient (CLI) | payer SELFPAY ==
[~2022-01-23] MED LIST changes: +GASTROGRAFIN SOLUTION 30ML (Q9963) As Ordered ONE; +ISOVUE-370 76% 100ML VIAL As Ordered ONE
== END ==
LOC: M RAD 13:13
PROVIDERS: ATTEND Internal Medicine Medical Oncology
DX: C16.9 Malignant neoplasm of stomach, unspecified (principal)

== ENCOUNTER → 2022-02-04 | Outpatient (REF) | payer SELFPAY ==
[~2022-02-04] MED LIST changes: -GASTROGRAFIN SOLUTION 30ML (Q9963) As Ordered ONE; -ISOVUE-370 76% 100ML VIAL As Ordered ONE
== END ==
LOC: M SMT 13:06
PROVIDERS: ATTEND Urology
DX: C67.9 Malignant neoplasm of bladder, unspecified (principal)

== ENCOUNTER → 2022-03-27 | Outpatient (CLI) | payer SELFPAY, MEDICARE | LOC: M ONCR 11-20 13:29 | PROVIDERS: ATTEND General Practice | DX: C15.5 Malignant neoplasm of lower third of esophagus (principal); F17.210 Nicotine dependence, cigarettes, uncomplicated; R13.10 Dysphagia, unspecified; R59.0 Localized enlarged lymph nodes; Z85.51 Personal history of malignant neoplasm of bladder; Z92.21 Personal history of antineoplastic chemotherapy; Z92.3 Personal history of irradiation ==

== ENCOUNTER → 2022-05-27 | Outpatient (REF) | payer SELFPAY, MEDICARE ==
[~2022-05-27] MED LIST changes: +LEVO1TAB39; -LEVO500T4; +TAMS1CAP17
== END ==
LOC: M SMT 17:08
PROVIDERS: ATTEND Urology
DX: C67.9 Malignant neoplasm of bladder, unspecified (principal)

== ENCOUNTER → 2022-07-10 | Outpatient (CLI) | payer MEDICARE ==
[~2022-07-10] MED LIST changes: +GASTROGRAFIN SOLUTION 30ML As Ordered ONE; +ISOVUE-370 76% 100ML VIAL As Ordered ONE
== END ==
LOC: M RAD 08:44
PROVIDERS: ATTEND General Practice
DX: C15.5 Malignant neoplasm of lower third of esophagus (principal)
CPT/HCPCS: 71260; 74177; Q9963; Q9967

== ENCOUNTER → 2022-07-19 | Outpatient (CLI) | payer MEDICARE ==
[~2022-07-19] MED LIST changes: -GASTROGRAFIN SOLUTION 30ML As Ordered ONE; -ISOVUE-370 76% 100ML VIAL As Ordered ONE
== END ==
LOC: M ONCR 10:07
PROVIDERS: ATTEND General Practice
DX: C15.5 Malignant neoplasm of lower third of esophagus (principal); F17.210 Nicotine dependence, cigarettes, uncomplicated; R59.0 Localized enlarged lymph nodes; Z79.899 Other long term (current) drug therapy; Z85.51 Personal history of malignant neoplasm of bladder; Z92.21 Personal history of antineoplastic chemotherapy; Z92.3 Personal history of irradiation

== ENCOUNTER → 2022-09-06 | Outpatient (REF) | payer MEDICARE | LOC: M SMT 16:50 | PROVIDERS: ATTEND Urology | DX: C67.9 Malignant neoplasm of bladder, unspecified (principal) ==

== ENCOUNTER → 2022-12-09 | Outpatient (CLI) | payer MEDICARE ==
[~2022-12-09] MED LIST changes: +GASTROGRAFIN SOLUTION 30ML As Ordered ONE; +ISOVUE-370 76% 100ML VIAL As Ordered ONE
== END ==
LOC: M RAD 09:17
PROVIDERS: ATTEND General Practice
DX: C15.5 Malignant neoplasm of lower third of esophagus (principal)
CPT/HCPCS: 71260; 74177; Q9963; Q9967

== ENCOUNTER → 2022-12-20 | Outpatient (CLI) | payer MEDICARE ==
[~2022-12-20] MED LIST changes: -GASTROGRAFIN SOLUTION 30ML As Ordered ONE; -ISOVUE-370 76% 100ML VIAL As Ordered ONE
== END ==
LOC: M ONCR 12:50
PROVIDERS: ATTEND General Practice
DX: C15.5 Malignant neoplasm of lower third of esophagus (principal); F17.210 Nicotine dependence, cigarettes, uncomplicated; R59.9 Enlarged lymph nodes, unspecified; Z71.2 Person consulting for explanation of examination or test findings; Z79.899 Other long term (current) drug therapy; Z85.51 Personal history of malignant neoplasm of bladder; Z91.041 Radiographic dye allergy status; Z92.21 Personal history of antineoplastic chemotherapy; Z92.3 Personal history of irradiation

== ENCOUNTER → 2023-03-10 | Outpatient (REF) | payer MEDICARE | LOC: M SMT 17:21 | PROVIDERS: ATTEND Urology | DX: C67.9 Malignant neoplasm of bladder, unspecified (principal) ==

== ENCOUNTER → 2023-07-01 | Outpatient (RCR) | payer MEDICARE | LOC: M ONCR 06-13 13:58 | PROVIDERS: ATTEND General Practice | DX: Z51.0 Encounter for antineoplastic radiation therapy (principal); C15.5 Malignant neoplasm of lower third of esophagus; C78.89 Secondary malignant neoplasm of other digestive organs ==

== ENCOUNTER 2023-07-04 14:13 | Outpatient (RCR) | payer MEDICARE | END 2023-07-31 | LOC: M ONCR 14:13 | PROVIDERS: ATTEND General Practice | DX: Z51.0 Encounter for antineoplastic radiation therapy (principal); C15.5 Malignant neoplasm of lower third of esophagus; C78.89 Secondary malignant neoplasm of other digestive organs ==

== ENCOUNTER → 2023-09-23 | Outpatient (REF) | payer MEDICARE | LOC: M SMT 13:47 | PROVIDERS: ATTEND Urology | DX: C67.9 Malignant neoplasm of bladder, unspecified (principal) ==

== ENCOUNTER → 2023-10-06 | Outpatient (CLI) | payer MEDICARE | LOC: M PLARAD 09:51 | PROVIDERS: ATTEND General Practice | DX: C15.5 Malignant neoplasm of lower third of esophagus (principal) | CPT/HCPCS: 78815; A9552 ==

== ENCOUNTER → 2023-10-07 | Outpatient (CLI) | payer MEDICARE | LOC: M ONCR 12:33 | PROVIDERS: ATTEND General Practice | DX: C15.5 Malignant neoplasm of lower third of esophagus (principal); F17.210 Nicotine dependence, cigarettes, uncomplicated; R91.1 Solitary pulmonary nodule; Z71.2 Person consulting for explanation of examination or test findings; Z79.899 Other long term (current) drug therapy; Z85.858 Personal history of malignant neoplasm of other endocrine glands; Z91.041 Radiographic dye allergy status; Z92.21 Personal history of antineoplastic chemotherapy; Z92.3 Personal history of irradiation ==

== ENCOUNTER 2023-10-14 10:07 | Outpatient (RCR) | payer MEDICARE | END 2023-10-30 | LOC: M ONCR 10:07 | PROVIDERS: ATTEND General Practice | DX: Z51.0 Encounter for antineoplastic radiation therapy (principal); C34.32 Malignant neoplasm of lower lobe, left bronchus or lung ==

== ENCOUNTER 2023-11-07 08:32 | Outpatient (RCR) | payer MEDICARE | END 2023-11-30 | LOC: M ONCR 08:32 | PROVIDERS: ATTEND General Practice | DX: Z51.0 Encounter for antineoplastic radiation therapy (principal); C34.32 Malignant neoplasm of lower lobe, left bronchus or lung ==

== ENCOUNTER → 2024-01-05 | Outpatient (REF) | payer MEDICARE | LOC: M SMT 17:14 | PROVIDERS: ATTEND Urology | DX: C67.9 Malignant neoplasm of bladder, unspecified (principal) ==

== ENCOUNTER → 2024-01-30 | Outpatient (CLI) | payer MEDICARE ==
[~2024-01-30] MED LIST changes: +GASTROGRAFIN SOLUTION 30ML As Ordered ONE; +ISOVUE-370 76% 100ML VIAL As Ordered ONE
== END ==
LOC: M RAD 10:47
PROVIDERS: ATTEND General Practice
DX: C15.5 Malignant neoplasm of lower third of esophagus (principal)
CPT/HCPCS: 71260; 74177; Q9963; Q9967

== ENCOUNTER → 2024-02-10 | Outpatient (CLI) | payer MEDICARE ==
[~2024-02-10] MED LIST changes: -GASTROGRAFIN SOLUTION 30ML As Ordered ONE; -ISOVUE-370 76% 100ML VIAL As Ordered ONE
== END ==
LOC: M ONCR 11:07
PROVIDERS: ATTEND General Practice
DX: C15.5 Malignant neoplasm of lower third of esophagus (principal); R91.1 Solitary pulmonary nodule; F17.210 Nicotine dependence, cigarettes, uncomplicated; Z71.2 Person consulting for explanation of examination or test findings; Z79.899 Other long term (current) drug therapy; Z91.041 Radiographic dye allergy status; Z92.3 Personal history of irradiation

== ENCOUNTER → 2024-04-16 | Outpatient (REF) | payer MEDICARE | LOC: M SMT 16:58 | PROVIDERS: ATTEND Urology | DX: C67.9 Malignant neoplasm of bladder, unspecified (principal) ==

== ENCOUNTER → 2024-06-09 | Outpatient (CLI) | payer MEDICARE | LOC: M ONCR 11:26 | PROVIDERS: ATTEND General Practice | DX: Z08 Encounter for follow-up examination after completed treatment for malignant neoplasm (principal); C34.32 Malignant neoplasm of lower lobe, left bronchus or lung; F17.210 Nicotine dependence, cigarettes, uncomplicated; Z85.01 Personal history of malignant neoplasm of esophagus; Z85.51 Personal history of malignant neoplasm of bladder; Z85.79 Personal history of other malignant neoplasms of lymphoid, hematopoietic and related tissues; Z92.21 Personal history of antineoplastic chemotherapy; Z92.3 Personal history of irradiation ==

== ENCOUNTER → 2024-07-19 | Outpatient (REF) | payer MEDICARE | LOC: M SMT 13:30 | PROVIDERS: ATTEND Urology | DX: C67.9 Malignant neoplasm of bladder, unspecified (principal) ==

== ENCOUNTER → 2024-08-04 | Outpatient (CLI) | payer MEDICARE ==
[~2024-08-04] MED LIST changes: +DIPH50CA PO; +LIDOCAINE 1% MDV 20ML VIAL As Ordered ONE; +PRED50TA PO
[2024-08-04 08:27] VITALS: TEMP 97.7
[2024-08-04 11:16] VITALS: BP 111/68; O2SAT 98
== END ==
LOC: M IRPRO 08:17
PROVIDERS: ATTEND Internal Medicine Medical Oncology
DX: R91.1 Solitary pulmonary nodule (principal); J95.811 Postprocedural pneumothorax; J84.111 Idiopathic interstitial pneumonia, not otherwise specified; J44.89 Other specified chronic obstructive pulmonary disease

== ENCOUNTER → 2024-08-10 | Outpatient (CLI) | payer MEDICARE ==
[~2024-08-10] MED LIST changes: -LIDOCAINE 1% MDV 20ML VIAL As Ordered ONE
== END ==
LOC: M PLARAD 13:01
PROVIDERS: ATTEND Internal Medicine Medical Oncology
DX: C16.0 Malignant neoplasm of cardia (principal)
CPT/HCPCS: 78815; A9552

== ENCOUNTER → 2024-11-08 | Outpatient (REF) | payer MEDICARE | LOC: M SMT 13:12 | PROVIDERS: ATTEND Urology | DX: C67.9 Malignant neoplasm of bladder, unspecified (principal) ==

== ENCOUNTER → 2025-05-16 | Outpatient (REF) | payer MEDICARE ==
[~2025-05-16] MED LIST changes: -DIPH50CA PO; +DIPH50CA31 PO; -PRED50TA PO; +PRED50TA57 PO
== END ==
LOC: M SMT 12:38
PROVIDERS: ATTEND Urology
DX: C67.9 Malignant neoplasm of bladder, unspecified (principal)

== ENCOUNTER 2025-07-13 08:16 | Day surgery (SDC) | payer MEDICARE ==
[~2025-07-13] VITALS: Ht 170.2 cm; Wt 57.2 kg
[~2025-07-13 08:16] MED LIST changes: +DOXY100C3 PO; +FINA5TAB2 PO; +LIDOCAINE 2% 100 MG/5 ML SDV (FOR ANES.) As Ordered ONE; +ONDANSETRON 4MG/2ML VIAL As Ordered ONE; -TAMS1CAP17; +TAMS1CAP17 PO; +dexAMETHasone 4 MG/ML 1 ML VIAL As Ordered ONE
[2025-07-13] MEDS ORDERED: MIDAZOLAM INJ 2 MG/2 ML VIAL As Ordered ONE (08:42)
[2025-07-13] MEDS: LR 1,000 ML IV SCH (09:18)
[2025-07-13] MEDS: ALBUTEROL SULFATE 2.5 MG/0.5 ML INH CONCENTRATE NEB SOLN NEB ONE (10:01)
[2025-07-13] MEDS ORDERED: SUGAMMADEX SODIUM 500 MG/5 ML VIAL As Ordered ONE (10:08)
[2025-07-13] MEDS ORDERED: ROCURONIUM BROMIDE 50MG/5ML VIAL As Ordered ONE (10:08)
[2025-07-13] MEDS: ceFAZolin SOD 2 GM IV ONCE IV ONE (10:34)
[2025-07-13] MEDS ORDERED: ACETAMINOPHEN 1000MG/100ML IV BAG As Ordered ONE (10:36)
[2025-07-13] MEDS ORDERED: FUROSEMIDE 100 MG/10 ML VIAL As Ordered ONE (12:36)
[2025-07-13] MEDS ORDERED: ONDANSETRON 4MG/2ML VIAL IV PRN (12:55)
[2025-07-13] MEDS ORDERED: HYDROMORPHONE HCL 0.5 MG/0.5 ML SYRINGE IV PRN (12:55)
[2025-07-13] MEDS ORDERED: OXYB5TAB14 PO (13:37)
[2025-07-13 15:55] VITALS: BP 111/69; TEMP 97.8; O2SAT 97
== END 2025-07-13 16:25 | disposition home or self-care (01) ==
LOC: M SDC 08:16
PROVIDERS: ATTEND Urology
DX: N40.1 Benign prostatic hyperplasia with lower urinary tract symptoms (principal); N13.8 Other obstructive and reflux uropathy; I71.40 Abdominal aortic aneurysm, without rupture, unspecified; Z79.899 Other long term (current) drug therapy; Z85.51 Personal history of malignant neoplasm of bladder; Z85.01 Personal history of malignant neoplasm of esophagus; Z92.23 Personal history of estrogen therapy; Z92.21 Personal history of antineoplastic chemotherapy; F17.210 Nicotine dependence, cigarettes, uncomplicated
CPT/HCPCS: 52601; J0131; J0688; J1100; J1938; J2250; J2405; J3010